=== PATIENT | male | born 1960 | race Caucasian/White ===

== ENCOUNTER 2020-11-08 14:02 | Inpatient (IN) | payer MEDICARE, OTHER ==
[2020-11-08] MEDS ORDERED: IPRATROPIUM-ALBUTEROL 3 ML NEB INHALATION STA (14:11)
[2020-11-08] MEDS ORDERED: methylPREDNISolone SOD SUCCI 125 MG/2 ML VIAL IV STA (14:11)
--- NOTE | 2020-11-08 14:11 | ED ---
General Adult HPI <Flo Brown - Last Filed: 11/08/20 14:06> - General Source: patient, RN notes reviewed, old records reviewed <Derek Andersen - Last Filed: 11/08/20 20:12> - General Stated complaint: SOB Time Seen by Provider: 11/08/20 14:05 - History of Present Illness Initial comments: Patient seen for advanced triage purpose to help expedite care: 59-year-old fred hernandez presents to the emergency room for a chief complaint of shortness of breath. Patient has had shortness of breath since he woke up this morning. Patient does have a history of COPD. he has been coughing a little bit more than normal. Patient also complaining of chest pain. Patient has no other complaints at this time including abdominal pain, nausea or vomiting, headache, or visual changes. (Flo Brown) This is a 59-year-old male with past medical history significant for COPD per patient states last night he felt fine he woke up this morning and he was having hard time breathing. Patient states he took a couple of puffs of his inhaler did not help at all. Patient states he also has some significant chest tightness. Patient denies any new cough or fever. Patient denies any loss of taste or smell. Patient denies any diarrhea. Patient states the shortness of breath is very severe for him. Patient denies any abdominal pain. Patient denies any nausea vomiting diarrhea. Patient denies any lightheadedness or dizziness. (Derek Andersen) - Related Data Home Medications Medication Instructions Recorded Confirmed Aspirin EC [Ecotrin Low Dose] 81 mg PO Q48H 11/08/20 11/08/20 Ergocalciferol (Vitamin D2) 1,250 mcg PO MO 11/08/20 11/08/20 [Drisdol (50,000 Iu)] Multivitamins, Thera [Multivitamin 1 tab PO DAILY 11/08/20 11/08/20 (formulary)] Allergies Allergy/AdvReac Type Severity Reaction Status Date / Time No Known Allergies Allergy Verified 11/08/20 16:00 Review of Systems ROS Other: All systems not noted in ROS Statement are negative. <Flo Brown - Last Filed: 11/08/20 14:06> ROS Other: All systems not noted in ROS Statement are negative. <Derek Andersen - Last Filed: 11/08/20 20:12> ROS Statement: Those systems with pertinent positive or pertinent negative responses have been documented in the HPI. Past Medical History Past Medical History: No Reported History History of Any Multi-Drug Resistant Organisms: None Reported Past Surgical History: No Surgical Hx Reported Past Psychological History: No Psychological Hx Reported Past Alcohol Use History: None Reported Past Drug Use History: None Reported <Flo Brown - Last Filed: 11/08/20 14:06> General Exam General appearance: alert Head exam: Present: atraumatic Eye exam: Present: normal appearance, PERRL, EOMI. Absent: scleral icterus ENT exam: Present: normal exam Neck exam: Present: normal inspection Respiratory exam: Present: decreased breath sounds, other (tachypnea) Cardiovascular Exam: Present: regular rate, normal rhythm, normal heart sounds. Absent: clicks GI/Abdominal exam: Present: soft, normal bowel sounds. Absent: distended, tenderness, guarding, rebound, rigid <Flo Brown - Last Filed: 11/08/20 14:06> <Derek Andersen - Last Filed: 11/08/20 20:12> - General Exam Comments Initial Comments: GENERAL: Patient is well-developed and well-nourished. Patient is nontoxic and well- hydrated and is in moderate distress. ENT: Neck is soft and supple. No significant lymphadenopathy is noted. Oropharynx is clear. Moist mucous membranes. Neck has full range of motion without eliciting any pain. EYES: The sclera were anicteric and conjunctiva were pink and moist. Extraocular movements were intact and pupils were equal round and reactive to light. Eyelids were unremarkable. PULMONARY: Very diminished breath sounds throughout. CARDIOVASCULAR: Patient is a regular rate and rhythm at about 105 beats a minute ABDOMEN: Soft and nontender with normal bowel sounds. SKIN: Skin is clear with no lesions or rashes and otherwise unremarkable. NEUROLOGIC: Patient is alert and oriented x3. Cranial nerves II through XII are grossly intact. Motor and sensory are also intact. Normal speech, volume and content. Symmetrical smile. MUSCULOSKELETAL: Normal extremities with adequate strength and full range of motion. LYMPHATICS: No significant lymphadenopathy is noted PSYCHIATRIC: Normal psychiatric evaluation. (Derek Andersen) Course Vital Signs 11/08/20 11/08/20 11/08/20 14:04 15:10 15:12 Temperature 97.5 F L Pulse Rate 108 H 116 H Respiratory 24 24 22 Rate Blood Pressure 161/88 O2 Sat by Pulse 92 L 95 Oximetry 11/08/20 11/08/20 11/08/20 15:24 16:00 17:00 Temperature Pulse Rate 124 H 124 H 112 H Respiratory 22 22 22 Rate Blood Pressure 113/80 O2 Sat by Pulse 100 100 Oximetry 11/08/20 11/08/20 11/08/20 17:39 17:43 17:44 Temperature Pulse Rate 110 H 110 H 105 H Respiratory 18 16 16 Rate Blood Pressure 124/63 121/73 117/67 O2 Sat by Pulse 100 100 100 Oximetry 11/08/20 11/08/20 11/08/20 17:48 18:00 18:15 Temperature Pulse Rate 100 97 97 Respiratory 16 16 16 Rate Blood Pressure 122/67 122/67 122/67 O2 Sat by Pulse 100 100 100 Oximetry Procedures - Chest Tube Insertion Consent Obtained: verbal consent Side of Procedure: left Indication: Pneumothorax Placed on monitor/pulse oximetry: Yes Site Prep: Chloroprep Local Anesthesia: Lidocaine 1% Amount (mLs): 5 Insertion Site: Other (Mid clavicular second intercostal space) Tube Size (Tristanian): Other (I used a Thoravent) Returns: Air Sutured in Place: No Attached to Suction: Yes Repeat X-ray Results: Other (Slight increased inflation of the lung) Patient Tolerated Procedure: well (Slightly increased inflation) Complications: Pain - Procedural Sedation Procedural Sedation Start Time: 17:48 Procedural Sedation Stop Time: 18:05 Mallampati Airway Score: 1 Preparation: cardiac exercise specialist applied, pulse oximeter, supplemental O2 applied Ketamine: IV Ketamine Dose: 60 Complications: none Patient Tolerated Procedure: well <Derek Andersen - Last Filed: 11/08/20 20:12> Medical Decision Making - Lab Data Result diagrams: 11/08/20 15:02 11/08/20 15:02 <Derek Andersen - Last Filed: 11/08/20 20:12> - Medical Decision Making EKG shows sinus tachycardia with occasional PAC at 104 bpm FL interval is 134 74 QT interval 308 QTC is 45. Patient's EKG shows no ST segment elevation or depression. No prior chest x-ray showed pneumothorax. I placed a Throvent in and the Throvent appeared to turn 90 but the red diaphragm was deflecting with his breathing so it appeared to be functioning. I did Up to continuous suction repeated x-ray today shows slight improvement. I spoke with Dr. Vazquez as as at this point in time and indicated that the patient was satting 100% on 3 L and heart rate was 93 and he did not want me at this time to try to replace it. He wanted cardiothoracic sap integration architect and I will be placed the patient ICU. I will back in the room later and the patient was satting 100% again on 3 L and his heart rate was in the 90s. I spoke with Dr. Orta he agreed to admit the patient admitted the patient wrote admitting orders. (Derek Andersen) - Lab Data Lab Results 11/08/20 11/08/20 11/08/20 Range/Units 15:02 15:02 15:02 WBC 10.9 H (3.8-10.6) k/uL RBC 5.31 (4.30-5.90) m/uL Hgb 15.8 (13.0-17.5) gm/dL Hct 47.7 (39.0-53.0) % MCV 89.9 (80.0-100.0) fL MCH 29.7 (25.0-35.0) pg MCHC 33.0 (31.0-37.0) g/dL RDW 13.7 (11.5-15.5) % Plt Count 407 (150-450) k/uL MPV 8.3 Neutrophils % 81 % Lymphocytes % 12 % Monocytes % 3 % Eosinophils % 1 % Basophils % 1 % Neutrophils # 8.9 H (1.3-7.7) k/uL Lymphocytes # 1.3 (1.0-4.8) k/uL Monocytes # 0.4 (0-1.0) k/uL Eosinophils # 0.1 (0-0.7) k/uL Basophils # 0.1 (0-0.2) k/uL PT 10.8 (9.0-12.0) sec INR 1.0 (<1.2) APTT 23.4 (22.0-30.0) sec D-Dimer (<0.60) mg/L FEU Sample Site ABG pH (7.35-7.45) ABG pCO2 (35-45) mmHg ABG pO2 (83-108) mmHg ABG HCO3 (21-25) mmol/L ABG Total CO2 (19-24) mmol/L ABG O2 Saturation (94-97) % ABG Base Excess mmol/L Desean Test FiO2 % Sodium 137 (137-145) mmol/L Potassium 4.6 (3.5-5.1) mmol/L Chloride 98 (98-107) mmol/L Carbon Dioxide 29 (22-30) mmol/L Anion Gap 10 mmol/L BUN 11 (9-20) mg/dL Creatinine 0.58 L (0.66-1.25) mg/dL Est GFR (CKD-EPI)AfAm >90 (>60 ml/min/1.73 sqM) Est GFR (CKD-EPI)NonAf >90 (>60 ml/min/1.73 sqM) Glucose 123 H (74-99) mg/dL Lactic Ac Sepsis Rflx Plasma Lactic Acid Mustapha (0.7-2.0) mmol/L Calcium 9.6 (8.4-10.2) mg/dL Magnesium 2.0 (1.6-2.3) mg/dL Total Bilirubin 0.4 (0.2-1.3) mg/dL AST 23 (17-59) U/L ALT 13 (4-49) U/L Alkaline Phosphatase 83 (38-126) U/L Troponin I (0.000-0.034) ng/mL Total Protein 7.8 (6.3-8.2) g/dL Albumin 4.8 (3.5-5.0) g/dL 11/08/20 11/08/20 11/08/20 Range/Units 15:02 15:02 15:02 WBC (3.8-10.6) k/uL RBC (4.30-5.90) m/uL Hgb (13.0-17.5) gm/dL Hct (39.0-53.0) % MCV (80.0-100.0) fL MCH (25.0-35.0) pg MCHC (31.0-37.0) g/dL RDW (11.5-15.5) % Plt Count (150-450) k/uL MPV Neutrophils % % Lymphocytes % % Monocytes % % Eosinophils % % Basophils % % Neutrophils # (1.3-7.7) k/uL Lymphocytes # (1.0-4.8) k/uL Monocytes # (0-1.0) k/uL Eosinophils # (0-0.7) k/uL Basophils # (0-0.2) k/uL PT (9.0-12.0) sec INR (<1.2) APTT (22.0-30.0) sec D-Dimer <0.17 (<0.60) mg/L FEU Sample Site ABG pH (7.35-7.45) ABG pCO2 (35-45) mmHg ABG pO2 (83-108) mmHg ABG HCO3 (21-25) mmol/L ABG Total CO2 (19-24) mmol/L ABG O2 Saturation (94-97) % ABG Base Excess mmol/L Desean Test FiO2 % Sodium (137-145) mmol/L Potassium (3.5-5.1) mmol/L Chloride (98-107) mmol/L Carbon Dioxide (22-30) mmol/L Anion Gap mmol/L BUN (9-20) mg/dL Creatinine (0.66-1.25) mg/dL Est GFR (CKD-EPI)AfAm (>60 ml/min/1.73 sqM) Est GFR (CKD-EPI)NonAf (>60 ml/min/1.73 sqM) Glucose (74-99) mg/dL Lactic Ac Sepsis Rflx Plasma Lactic Acid Mustapha 4.8 H* (0.7-2.0) mmol/L Calcium (8.4-10.2) mg/dL Magnesium (1.6-2.3) mg/dL Total Bilirubin (0.2-1.3) mg/dL AST (17-59) U/L ALT (4-49) U/L Alkaline Phosphatase (38-126) U/L Troponin I <0.012 (0.000-0.034) ng/mL Total Protein (6.3-8.2) g/dL Albumin (3.5-5.0) g/dL 11/08/20 11/08/20 Range/Units 16:09 16:26 WBC (3.8-10.6) k/uL RBC (4.30-5.90) m/uL Hgb (13.0-17.5) gm/dL Hct (39.0-53.0) % MCV (80.0-100.0) fL MCH (25.0-35.0) pg MCHC (31.0-37.0) g/dL RDW (11.5-15.5) % Plt Count (150-450) k/uL MPV Neutrophils % % Lymphocytes % % Monocytes % % Eosinophils % % Basophils % % Neutrophils # (1.3-7.7) k/uL Lymphocytes # (1.0-4.8) k/uL Monocytes # (0-1.0) k/uL Eosinophils # (0-0.7) k/uL Basophils # (0-0.2) k/uL PT (9.0-12.0) sec INR (<1.2) APTT (22.0-30.0) sec D-Dimer (<0.60) mg/L FEU Sample Site r rad ABG pH 7.23 L (7.35-7.45) ABG pCO2 66 H (35-45) mmHg ABG pO2 >400 H (83-108) mmHg ABG HCO3 27 H (21-25) mmol/L ABG Total CO2 29 H (19-24) mmol/L ABG O2 Saturation 100.0 H (94-97) % ABG Base Excess -0.2 mmol/L Desean Test Yes FiO2 100 % Sodium (137-145) mmol/L Potassium (3.5-5.1) mmol/L Chloride (98-107) mmol/L Carbon Dioxide (22-30) mmol/L Anion Gap mmol/L BUN (9-20) mg/dL Creatinine (0.66-1.25) mg/dL Est GFR (CKD-EPI)AfAm (>60 ml/min/1.73 sqM) Est GFR (CKD-EPI)NonAf (>60 ml/min/1.73 sqM) Glucose (74-99) mg/dL Lactic Ac Sepsis Rflx Y Plasma Lactic Acid Mustapha (0.7-2.0) mmol/L Calcium (8.4-10.2) mg/dL Magnesium (1.6-2.3) mg/dL Total Bilirubin (0.2-1.3) mg/dL AST (17-59) U/L ALT (4-49) U/L Alkaline Phosphatase (38-126) U/L Troponin I (0.000-0.034) ng/mL Total Protein (6.3-8.2) g/dL Albumin (3.5-5.0) g/dL Critical Care Time Critical Care Time: Yes Total Critical Care Time: 35 <Derek Andesren - Last Filed: 11/08/20 20:12> Disposition <Flo Brown - Last Filed: 11/08/20 14:06> Time of Disposition: 20:02 <Derek Andersen - Last Filed: 11/08/20 20:12> Clinical Impression: Pneumothorax, COPD exacerbation Disposition: ADMITTED IP TO THIS HOSP Referrals: Lissy Shelby MD [Primary Care Provider] - 1-2 days
[2020-11-08] MEDS ORDERED: SODIUM CHLORIDE 0.9% 500 ML 500 ML IV STA (14:40)
[2020-11-08] MEDS ORDERED: TERBUTALINE 1 MG/ML VIAL SQ STA (14:40)
[2020-11-08] MEDS ORDERED: ALBUTEROL NEBULIZED 2.5 MG/3 ML INHALATION STA (14:40)
[2020-11-08] MEDS ORDERED: IPRATROPIUM 0.5 MG/2.5 ML NEBU INHALATION STA (14:40)
[2020-11-08 15:07] LABS: Basophils # (A) 0.1 k/uL (0-0.2); Basophils % (A) 1 %; Eosinophils # (A) 0.1 k/uL (0-0.7); Eosinophils % (A) 1 %; HCT 47.7 % (39.0-53.0); HGB 15.8 gm/dL (13.0-17.5); Lymphocytes # (A) 1.3 k/uL (1.0-4.8); Lymphocytes % (A) 12 %; MCH 29.7 pg (25.0-35.0); MCV 89.9 fL (80.0-100.0); Mean Platelet Volume 8.3; Monocytes # (A) 0.4 k/uL (0-1.0); Monocytes % (A) 3 %; Neutrophils # (A) 8.9 k/uL (1.3-7.7); Neutrophils % (A) 81 %; Platelet Count 407 k/uL (150-450); RBC 5.31 m/uL (4.30-5.90); RDW 13.7 % (11.5-15.5); WBC 10.9 k/uL (3.8-10.6)
[2020-11-08 15:19] LABS: ALT 13 U/L (4-49); AST 23 U/L (17-59); African American GFR (CKD) >90 (>60 ml/min/1.73 sqM); Albumin 4.8 g/dL (3.5-5.0); Alkaline Phosphatase 83 U/L (38-126); Anion Gap 10 mmol/L; Blood Urea Nitrogen 11 mg/dL (9-20); Calcium 9.6 mg/dL (8.4-10.2); Carbon Dioxide 29 mmol/L (22-30); Chloride 98 mmol/L (98-107); Glucose 123 mg/dL (74-99); Non-African American GFR(CKD) >90 (>60 ml/min/1.73 sqM); Potassium 4.6 mmol/L (3.5-5.1); Sodium 137 mmol/L (137-145); Total Bilirubin 0.4 mg/dL (0.2-1.3); Total Protein 7.8 g/dL (6.3-8.2)
[2020-11-08 15:21] LABS: Partial Thromboplastin Time 23.4 sec (22.0-30.0); Prothrombin Time 10.8 sec (9.0-12.0)
[2020-11-08] MEDS ORDERED: LORazepam 2 MG/ML INJ IV STA (15:32)
--- NOTE | 2020-11-08 15:59 | XR ---
EXAMINATION TYPE: XR chest 1V portable DATE OF EXAM: 11/08/2020 COMPARISON: NONE HISTORY: Shortness of breath TECHNIQUE: Single frontal view of the chest is obtained. FINDINGS: Hyperinflation. There is a lucency along the left hemidiaphragm. Subsegmental changes righ t upper lobe. Prominence the pulmonary arteries. There is findings compatible with a left-sided pneum othorax. No significant deviation noted. Case called to the emergency room physician. Appears to be a pleural reflection fold from the sidewall. Estimated at 25% pneumothorax. IMPRESSION: 1. COPD with left-sided approximately 25% pneumothorax. Lucency seen near the left hemidiaphragm like ly related to the pneumothorax rather than intraperitoneal abdominal free air but should be correlate d clinically and if necessary with CT scan. 2. Subsegmental right upper lobe scar favored over infiltrate.
[2020-11-08 16:30] LABS: ABG Base Excess -0.2 mmol/L; ABG HCO3 27 mmol/L (21-25); ABG PCO2 66 mmHg (35-45); ABG PH 7.23 (7.35-7.45); ABG PO2 >400 mmHg (83-108); ABG TCO2 29 mmol/L (19-24); Allen Test Performed? Yes
[2020-11-08] MEDS ORDERED: LIDOCAINE 1% INJ 10MG/ML (20 ML MDV) SQ ONE (17:01)
[2020-11-08] MEDS ORDERED: KETAMINE 10 MG/ML 20 ML VIAL IV ONE (17:01)
[2020-11-08] MEDS ORDERED: KETOROLAC 15 MG/ML 1 ML VIAL IVP STA (18:16)
--- NOTE | 2020-11-08 18:41 | XR ---
EXAMINATION TYPE: XR chest 2V DATE OF EXAM: 11/08/2020 COMPARISON: Earlier same day HISTORY: Follow-up shortness of breath. TECHNIQUE: Frontal and lateral views of the chest are obtained. FINDINGS: There is persistent moderate left pneumothorax. There is interval placement of left upper chest tube. There is background of COPD. There is mild bibasilar opacity. No pleural effusion seen. The cardiac silhouette size is within normal limits. The osseous structures are intact. IMPRESSION: Persistent moderate left pneumothorax status post left chest tube. Chest tube tip locati on is difficult to ascertain on radiograph.
--- NOTE | 2020-11-08 19:29 | XR ---
EXAMINATION TYPE: XR chest 1V portable DATE OF EXAM: 11/08/2020 COMPARISON: Same day. HISTORY: Follow-up shortness of breath and left pneumothorax. TECHNIQUE: Single frontal view of the chest is obtained. FINDINGS: The left upper chest tube remains in place. There is persistent moderate left pneumothorax , slightly decreased compared to prior study. There is also improved bibasilar opacities without sign ificant residual. The cardiac silhouette size is within normal limits. The osseous structures are u nchanged. IMPRESSION: Persistent moderate left pneumothorax, slightly decreased compared to the prior study.
[2020-11-08] MEDS ORDERED: NALOXONE 0.4 MG/ML 1 ML VIAL IV PRN (20:03)
[2020-11-08] MEDS ORDERED: IPRATROPIUM-ALBUTEROL 3 ML NEB INHALATION PRN (20:03)
[2020-11-08 22:35] LABS: Glucose,Whole Blood 169 mg/dL (75-99)
[2020-11-08] MEDS: KETOROLAC 15 MG/ML 1 ML VIAL IVP SCH (23:47)
[2020-11-08] MEDS: methylPREDNISolone SOD SUCCI 125 MG/2 ML VIAL IV SCH (23:48)
[2020-11-09] MEDS: SODIUM CHLORIDE 0.9% 1,000 ML IV SCH ×2 (00:05→19:05)
[2020-11-09 03:17] LABS: African American GFR (CKD) >90 (>60 ml/min/1.73 sqM); Anion Gap 11 mmol/L; Blood Urea Nitrogen 13 mg/dL (9-20); Calcium 9.3 mg/dL (8.4-10.2); Carbon Dioxide 28 mmol/L (22-30); Chloride 98 mmol/L (98-107); Glucose 169 mg/dL (74-99); Non-African American GFR(CKD) >90 (>60 ml/min/1.73 sqM); Potassium 4.5 mmol/L (3.5-5.1); Sodium 137 mmol/L (137-145)
[2020-11-09 03:22] LABS: Basophils % (A) 0 %; Eosinophils % (A) 0 %; HCT 43.2 % (39.0-53.0); HGB 14.3 gm/dL (13.0-17.5); Lymphocytes # (A) 0.7 k/uL (1.0-4.8); Lymphocytes % (A) 8 %; MCH 29.9 pg (25.0-35.0); MCV 90.5 fL (80.0-100.0); Mean Platelet Volume 8.3; Monocytes # (A) 0.1 k/uL (0-1.0); Monocytes % (A) 1 %; Neutrophils # (A) 8.4 k/uL (1.3-7.7); Neutrophils % (A) 91 %; Platelet Count 375 k/uL (150-450); RBC 4.77 m/uL (4.30-5.90); RDW 13.7 % (11.5-15.5); WBC 9.3 k/uL (3.8-10.6)
[2020-11-09] MEDS: KETOROLAC 15 MG/ML 1 ML VIAL IVP SCH ×3 (06:21→18:16)
[2020-11-09] MEDS: methylPREDNISolone SOD SUCCI 125 MG/2 ML VIAL IV SCH ×3 (06:22→18:17)
[2020-11-09] MEDS ORDERED: IPRATROPIUM-ALBUTEROL 3 ML NEB INHALATION PRN (07:49)
[2020-11-09] MEDS: PANTOPRAZOLE 40 MG TABLET PO SCH (08:23)
[2020-11-09] MEDS: HEPARIN SODIUM,PORCINE/PF 5,000 UNIT/0.5 ML SYRINGE SQ SCH ×3 (08:23→16:12)
[2020-11-09] MEDS: BUDESONIDE 1 MG/2 ML NEBU INHALATION SCH ×2 (08:50→20:09)
[2020-11-09] MEDS: IPRATROPIUM-ALBUTEROL 3 ML NEB INHALATION SCH ×4 (08:50→20:09)
[2020-11-09] MEDS: FORMOTEROL FUMARATE 20 MCG/2 ML NEBU INHALATION SCH ×2 (08:50→20:09)
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
[2020-11-09] MEDS ORDERED: PANTOPRAZOLE 40 MG/10 ML VIAL IV SCH (09:00)
--- NOTE | 2020-11-09 09:46 | XR ---
EXAMINATION TYPE: XR chest 1V DATE OF EXAM: 11/09/2020 COMPARISON: 11/08/2020 INDICATION: Pneumothorax TECHNIQUE: Single frontal view of the chest is obtained. FINDINGS: The heart size is normal. The pulmonary vasculature is normal. There is hyperinflation. Scarring right apex. There is a left pneumothorax. The apical portion appears stable. However, there is interval developme nt of lateral and left basilar pneumothorax. Small amount of subcutaneous emphysema is present. IMPRESSION: 1. Small but enlarging pneumothorax. This has increased at the left lung base. 2. COPD. 3. Suspected scarring right apex. Continued follow-up is recommended.
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
--- NOTE | 2020-11-09 10:12 | P.HPIM ---
History of Present Illness H&P Date: 11/08/20 Chief Complaint: shortness of breath This is a 59-year-old male patient of Dr. Shelby who presented to the ER with complaints of shortness of breath. Patient reports that he woke up in the morning which chest pain and shortness of breath. Patient does have a significant past medical history of COPD and previous nicotine dependence. Patient reports that he took a couple puffs inhaler without relief. Upon arrival to emergency room chest x-ray was completed showing COPD with left-sided proximal 25% pneumothorax. Thoravent was placed in emergency room. Patient was started on IV steroids. Patient was admitted to the intensive care unit. Pulmonary and cardiothoracic surgery consulted. At this time patient is still complaining of some shortness of breath. Patient denies chest pain. Patient denies nausea vomiting or diarrhea. Patient denies any urinary burning or frequency Review of Systems Please refer to HPI otherwise unremarkable Past Medical History Past Medical History: No Reported History History of Any Multi-Drug Resistant Organisms: None Reported Past Surgical History: No Surgical Hx Reported Past Psychological History: No Psychological Hx Reported Past Alcohol Use History: None Reported Past Drug Use History: None Reported Medications and Allergies Home Medications Medication Instructions Recorded Confirmed Type Aspirin EC [Ecotrin Low Dose] 81 mg PO Q48H 11/08/20 11/08/20 History Ergocalciferol (Vitamin D2) 1,250 mcg PO MO 11/08/20 11/08/20 History [Drisdol (50,000 Iu)] Multivitamins, Thera [Multivitamin 1 tab PO DAILY 11/08/20 11/08/20 History (formulary)] Allergies Allergy/AdvReac Type Severity Reaction Status Date / Time No Known Allergies Allergy Verified 11/08/20 16:00 Physical Exam Vitals: Vital Signs Temp Pulse Resp BP Pulse Ox 11/08/20 21:56 22 11/08/20 21:43 105 H 22 136/55 95 11/08/20 18:15 97 16 122/67 100 11/08/20 18:00 97 16 122/67 100 11/08/20 17:48 100 16 122/67 100 11/08/20 17:44 105 H 16 117/67 100 11/08/20 17:43 110 H 16 121/73 100 11/08/20 17:39 110 H 18 124/63 100 11/08/20 17:00 112 H 22 100 11/08/20 16:00 124 H 22 113/80 100 11/08/20 15:24 124 H 22 11/08/20 15:12 116 H 22 11/08/20 15:10 24 95 11/08/20 14:04 97.5 F L 108 H 24 161/88 92 L Intake and Output 11/08/20 11/08/20 11/08/20 06:59 14:59 22:59 Other: Weight 54.431 kg Head normocephalic Neck supple Lungs clear to auscultation bilaterally no wheezing or crackles. Diminished Heart regular rate and rhythm S1-S2, no rub or gallop Abdomen is soft nontender nondistended positive bowel sounds no hepatosplenomegaly Extremities no edema Neuro alert and orientated to 3 Results CBC & Chem 7: 11/09/20 02:19 11/09/20 02:19 Labs: Abnormal Lab Results - Last 24 Hours (Table) 11/08/20 11/08/20 11/08/20 Range/Units 15:02 15:02 15:02 WBC 10.9 H (3.8-10.6) k/uL Neutrophils # 8.9 H (1.3-7.7) k/uL ABG pH (7.35-7.45) ABG pCO2 (35-45) mmHg ABG pO2 (83-108) mmHg ABG HCO3 (21-25) mmol/L ABG Total CO2 (19-24) mmol/L ABG O2 Saturation (94-97) % Creatinine 0.58 L (0.66-1.25) mg/dL Glucose 123 H (74-99) mg/dL Plasma Lactic Acid Mustapha 4.8 H* (0.7-2.0) mmol/L 11/08/20 11/08/20 Range/Units 16:26 20:27 WBC (3.8-10.6) k/uL Neutrophils # (1.3-7.7) k/uL ABG pH 7.23 L (7.35-7.45) ABG pCO2 66 H (35-45) mmHg ABG pO2 >400 H (83-108) mmHg ABG HCO3 27 H (21-25) mmol/L ABG Total CO2 29 H (19-24) mmol/L ABG O2 Saturation 100.0 H (94-97) % Creatinine (0.66-1.25) mg/dL Glucose (74-99) mg/dL Plasma Lactic Acid Mustapha 6.0 H* (0.7-2.0) mmol/L Assessment and Plan Assessment: 1. Acute spontaneous left-sided pneumothorax. Status post Thoravent placement on 11/08/2020. 2. COPD exacerbation. Patient started on Solu-Medrol 3. History of nicotine dependence. Patient reports he quit 2 years ago Patient currently in the intensive care unit Thoravent in place Patient maintained on IV steroids and DuoNeb breathing treatments Pulmonary and cardiothoracic team consulted repeat chest xray ordered Time with Patient: Greater than 30 (Greater than 60% of the total time spent in counseling and coordination of care)
--- NOTE | 2020-11-09 10:14 | P.PN ---
Subjective Progress Note Date: 11/09/20 This is a 59-year-old male patient of Dr. Shelby who presented to the ER with complaints of shortness of breath. Patient reports that he woke up in the morning which chest pain and shortness of breath. Patient does have a significant past medical history of COPD and previous nicotine dependence. Patient reports that he took a couple puffs inhaler without relief. Upon arrival to emergency room chest x-ray was completed showing COPD with left-sided proximal 25% pneumothorax. Thoravent was placed in emergency room. Patient was started on IV steroids. Patient was admitted to the intensive care unit. Pulmonary and cardiothoracic surgery consulted. At this time patient is still complaining of some shortness of breath. Patient denies chest pain. Patient denies nausea vomiting or diarrhea. Patient denies any urinary burning or frequency On 11/09/2020 patient's alert and oriented 3. Thoravent has been capped per cardiothoracic team. Repeat chest x-ray has been ordered patient is still having some shortness of breath. Patient remains on IV steroids. Patient denies chest pain. Patient denies nausea vomiting or diarrhea. Patient denies any urinary burning or frequency. Per nursing staff patient has been ordered out of intensive care unit to [facility] floor. Repeat labs in a.m. Objective - Vital Signs Vital signs: Vital Signs Temp 96.7 F L 11/09/20 08:00 Pulse 105 H 11/09/20 09:10 Resp 19 11/09/20 08:00 BP 127/75 11/09/20 08:00 Pulse Ox 96 11/09/20 08:00 Intake & Output 11/08/20 11/09/20 11/09/20 18:59 06:59 18:59 Intake Total 350 Output Total 375 Balance -25 Weight 54.431 kg 55.5 kg Intake: IV 350 Sodium Chloride 0.9% 1, 350 000 ml @ 50 mls/hr IV . Q20H [facility] Rx#:[id number] Output: Urine 375 Other: Voiding Method Urinal - Exam Head normocephalic Neck supple Lungs clear to auscultation bilaterally no wheezing or crackles. Diminished Heart regular rate and rhythm S1-S2, no rub or gallop Abdomen is soft nontender nondistended positive bowel sounds no hepatosplenomega ly Extremities no edema Neuro alert and orientated to 3 - Labs CBC & Chem 7: 08/11/21 02:19 11/09/20 02:19 Labs: Abnormal Lab Results - Last 24 Hours (Table) 11/08/20 11/08/20 11/08/20 Range/Units 15:02 15:02 15:02 WBC 10.9 H (3.8-10.6) k/uL Neutrophils # 8.9 H (1.3-7.7) k/uL Lymphocytes # (1.0-4.8) k/uL ABG pH (7.35-7.45) ABG pCO2 (35-45) mmHg ABG pO2 (83-108) mmHg ABG HCO3 (21-25) mmol/L ABG Total CO2 (19-24) mmol/L ABG O2 Saturation (94-97) % Creatinine 0.58 L (0.66-1.25) mg/dL Glucose 123 H (74-99) mg/dL POC Glucose (mg/dL) (75-99) mg/dL Plasma Lactic Acid Mustapha 4.8 H* (0.7-2.0) mmol/L 11/08/20 11/08/20 11/08/20 Range/Units 16:26 20:27 22:32 WBC (3.8-10.6) k/uL Neutrophils # (1.3-7.7) k/uL Lymphocytes # (1.0-4.8) k/uL ABG pH 7.23 L (7.35-7.45) ABG pCO2 66 H (35-45) mmHg ABG pO2 >400 H (83-108) mmHg ABG HCO3 27 H (21-25) mmol/L ABG Total CO2 29 H (19-24) mmol/L ABG O2 Saturation 100.0 H (94-97) % Creatinine (0.66-1.25) mg/dL Glucose (74-99) mg/dL POC Glucose (mg/dL) 169 H (75-99) mg/dL Plasma Lactic Acid Mustapha 6.0 H* (0.7-2.0) mmol/L 11/08/20 11/09/20 11/09/20 Range/Units 23:27 02:19 02:19 WBC (3.8-10.6) k/uL Neutrophils # 8.4 H (1.3-7.7) k/uL Lymphocytes # 0.7 L (1.0-4.8) k/uL ABG pH (7.35-7.45) ABG pCO2 (35-45) mmHg ABG pO2 (83-108) mmHg ABG HCO3 (21-25) mmol/L ABG Total CO2 (19-24) mmol/L ABG O2 Saturation (94-97) % Creatinine 0.54 L (0.66-1.25) mg/dL Glucose 169 H (74-99) mg/dL POC Glucose (mg/dL) (75-99) mg/dL Plasma Lactic Acid Mustapha 4.8 H* (0.7-2.0) mmol/L 11/09/20 Range/Units 02:19 WBC (3.8-10.6) k/uL Neutrophils # (1.3-7.7) k/uL Lymphocytes # (1.0-4.8) k/uL ABG pH (7.35-7.45) ABG pCO2 (35-45) mmHg ABG pO2 (83-108) mmHg ABG HCO3 (21-25) mmol/L ABG Total CO2 (19-24) mmol/L ABG O2 Saturation (94-97) % Creatinine (0.66-1.25) mg/dL Glucose (74-99) mg/dL POC Glucose (mg/dL) (75-99) mg/dL Plasma Lactic Acid Mustapha 3.6 H* (0.7-2.0) mmol/L Assessment and Plan Assessment: 1. Acute spontaneous left-sided pneumothorax. Status post Thoravent placement on 11/08/2020. Thoravent capped per cardiothoracic team On 11/09/2020 2. COPD exacerbation. Patient started on Solu-Medrol 3. History of nicotine dependence. Patient reports he quit 2 years ago Patient currently in the intensive care unit Thoravent in place Patient maintained on IV steroids and DuoNeb breathing treatments Pulmonary and cardiothoracic team following repeat chest xray ordered
[2020-11-09] MEDS: ACETAMINOPHEN TAB 325 MG TAB PO PRN ×2 (11:33→18:17)
--- NOTE | 2020-11-09 12:21 | XR ---
EXAMINATION TYPE: XR chest 2V DATE OF EXAM: 11/09/2020 COMPARISON: 11/09/2020 earlier exam INDICATION: Pneumothorax TECHNIQUE: Frontal and lateral views of the chest are obtained. FINDINGS: The heart size is normal. The pulmonary vasculature is normal. There is hyperinflation flattening the diaphragms compatible with COPD. Minimal left pleural effusion is not excluded. The scarring in the right apex remains present Chest tube is present on the right. The right apical pneumothorax is again evident. There is right ba silar pneumothorax. Findings appear stable. Subcutaneous emphysema is increasing. IMPRESSION: 1. Loculated right pneumothorax appears stable in size. The cutaneous emphysema is increasing over e interval.
[2020-11-10] MEDS: methylPREDNISolone SOD SUCCI 125 MG/2 ML VIAL IV SCH ×5 (00:35→23:30)
[2020-11-10] MEDS: KETOROLAC 15 MG/ML 1 ML VIAL IVP SCH ×5 (00:35→23:29)
[2020-11-10] MEDS: HEPARIN SODIUM,PORCINE/PF 5,000 UNIT/0.5 ML SYRINGE SQ SCH ×4 (00:36→23:28)
[2020-11-10 04:21] LABS: African American GFR (CKD) >90 (>60 ml/min/1.73 sqM); Anion Gap 5 mmol/L; Blood Urea Nitrogen 19 mg/dL (9-20); Calcium 9.4 mg/dL (8.4-10.2); Carbon Dioxide 32 mmol/L (22-30); Chloride 101 mmol/L (98-107); Glucose 151 mg/dL (74-99); Non-African American GFR(CKD) >90 (>60 ml/min/1.73 sqM); Potassium 4.3 mmol/L (3.5-5.1); Sodium 138 mmol/L (137-145)
[2020-11-10 04:29] LABS: Basophils % (A) 0 %; Eosinophils % (A) 0 %; HCT 41.5 % (39.0-53.0); HGB 13.4 gm/dL (13.0-17.5); Lymphocytes # (A) 0.7 k/uL (1.0-4.8); Lymphocytes % (A) 3 %; MCH 29.7 pg (25.0-35.0); MCHC 32.3 g/dL (31.0-37.0); MCV 91.9 fL (80.0-100.0); Monocytes # (A) 0.6 k/uL (0-1.0); Monocytes % (A) 3 %; Neutrophils # (A) 23.8 k/uL (1.3-7.7); Neutrophils % (A) 94 %; Platelet Count 319 k/uL (150-450); RBC 4.51 m/uL (4.30-5.90); RDW 13.8 % (11.5-15.5); WBC 25.2 k/uL (3.8-10.6)
--- NOTE | 2020-11-10 06:43 | XR ---
EXAMINATION TYPE: XR chest 2V DATE OF EXAM: 11/10/2020 COMPARISON: Chest x-ray one day earlier and older studies HISTORY: Pneumothorax. TECHNIQUE: Frontal and lateral views of the chest are obtained. FINDINGS: Redemonstration of right-sided pneumothorax with apical colon lateral basilar component de spite anterior chest tube. Size is stable or perhaps slightly larger given increased bilateral basila r component. No new mediastinal shift. The cardiac silhouette size is stable and within normal limits . Right upper lung fibrotic changes redemonstrated. The osseous structures remain intact. IMPRESSION: Small left pneumothorax estimated near 10% stable or slightly more prominent with anterio r chest tube redemonstrated.
--- NOTE | 2020-11-10 07:26 | P.PN ---
Subjective Progress Note Date: 11/10/20 Principal diagnosis: Spontaneous left sided pneumothorax, first occurrence, s/p thoravent placement by the emergency room physicians. Previous medical history of COPD, previous to bacco dependence The patient is currently sitting up in bed in the intensive care unit in no acute distress, awaiting a bed on a medical surgical unit. States his only pain is at thoravent site, does continue to complain of shortness of breath but states he does feel better than yesterday. Left-sided thoravent remains present, nonocclusive remains in place, no air leak this morning. Currently on 3 L nasal cannula with oxygen saturation in the mid 90s. Only able to achieve 750 mL on his incentive spirometry. No other new concerns. Objective - Vital Signs Vital signs: Vital Signs Temp 98 F 11/10/20 02:00 Pulse 100 11/10/20 02:00 Resp 22 11/10/20 02:00 BP 100/45 11/10/20 02:00 Pulse Ox 96 11/10/20 02:00 Intake & Output 11/09/20 11/10/20 11/10/20 18:59 06:59 18:59 Intake Total 350 0 Output Total 800 225 Balance -450 -225 Intake: IV 350 0 Sodium Chloride 0.9% 1, 350 0 000 ml @ 50 mls/hr IV . Q20H [facility] Rx#:[id number] Output: Urine 800 225 Other: Voiding Method Toilet # Voids 2 - Exam CONSTITUTIONAL: Appears comfortable, cooperative, no acute distress RESPIRATORY: Lungs sounds very diminished bilaterally, left greater than right. Respirations even, nonlabored. Currently on 3 L nasal cannula with oxygen saturation 96%. Able to achieve 750 mL on incentive spirometry. Strong nonproductive cough. CARDIOVASCULAR: S1, S2 present. Regular rate and rhythm. Palpable peripheral pulses bilaterally. No edema present. No calf pain or tenderness noted. SCDs present. GASTROINTESTINAL: Abdomen soft, nontender, nondistended. Active bowel sounds present 4 quadrants. Tolerating diet. GENITOURINARY: Continues to void INTEGUMENTARY: Skin is warm and dry with evidence of good perfusion. NEUROLOGIC: Cranial nerves II through XII intact MUSKULOSKELETAL: Able to move all extremities, strength equal bilaterally, gait normal PSYCHIATRIC: Alert and oriented to person place and time, appropriate affect, intact judgment and insight INVASIVE LINES AND TUBES: Left-sided thoravent present with non-occlusive cap, no air leak present this morning. T piece inserted with attempted aspiration, still no air leak - Allied health notes Allied health notes reviewed: nursing - Labs CBC & Chem 7: 11/10/20 03:41 11/10/20 03:41 Labs: Abnormal Lab Results - Last 24 Hours (Table) 11/10/20 11/10/20 Range/Units 03:41 03:41 WBC 25.2 H (3.8-10.6) k/uL Neutrophils # 23.8 H (1.3-7.7) k/uL Lymphocytes # 0.7 L (1.0-4.8) k/uL Carbon Dioxide 32 H (22-30) mmol/L Creatinine 0.54 L (0.66-1.25) mg/dL Glucose 151 H (74-99) mg/dL Microbiology - Last 24 Hours (Table) 11/08/20 15:02 Blood Culture - Preliminary Blood No Growth after 24 hours 11/08/20 15:02 Blood Culture - Preliminary Blood No Growth after 24 hours - Imaging and Cardiology Chest x-ray: report reviewed, image reviewed Assessment and Plan Assessment: 1. Spontaneous left sided pneumothorax, first occurrence, s/p thoravent placement by the emergency room physicians 2. COPD 3. Previous tobacco dependence Plan: 1. Will discontinue thoravent as it doesn't appear to be making any difference and there is no air leak present 2. Wean O2 as tolerated. Encourage incentive spirometry use 10 times every hour while awake. Bronchodilators, steroids per pulmonology 3. Increase activity, ambulate as tolerated 4. Pain controlled current medication regimen 5. Encourage continued smoking cessation 6. Will repeat chest x-ray after thoravent removal 7. Medical management of other comorbidities per primary care service 8. More recommendations to follow Time with Patient: Greater than 30
[2020-11-10] MEDS: BUDESONIDE 1 MG/2 ML NEBU INHALATION SCH ×2 (08:16→19:09)
[2020-11-10] MEDS: IPRATROPIUM-ALBUTEROL 3 ML NEB INHALATION SCH ×4 (08:16→19:09)
[2020-11-10] MEDS: FORMOTEROL FUMARATE 20 MCG/2 ML NEBU INHALATION SCH ×2 (08:16→19:09)
[2020-11-10] MEDS: PANTOPRAZOLE 40 MG TABLET PO SCH (08:27)
--- NOTE | 2020-11-10 09:16 | P.PN ---
Subjective Progress Note Date: 11/10/20 Principal diagnosis: Spontaneous left-sided pneumothorax This is a 59-year-old gentleman who has a history of 40 years of chronic tobacco dependence and chronic obstructive pulmonary disease and follows with Dr. Shelby as his primary care provider. He is maintained on Qvar. He presented here to the emergency room yesterday with significant worsening shortness of breath that had been going on throughout most of the morning. He was more short of breath than usual. He was using his rescue inhaler without any improvement. His initial chest x-ray revealed evidence of severe COPD and bullous emphysema. There is also a 25% left-sided pneumothorax. A Thoravent was placed in the emergency room. He was admitted to the intensive care unit. He is seen today in consultation. He is currently sitting up right in bed. Leaning forward. Still with some dyspnea on conversation and minimal exertion. Chest tube is to wall suction. No leak is present. Arterial blood gases on 100% FiO2 had revealed a pO2 greater than 400, pCO2 66, pH 7.23. White count 9.3. Hemoglobin 14.3. Sodium 137. Potassium 4.5. Creatinine 0.54. Initial lactic acid 4.8. He's been initiated on IV Solu-Medrol, albuterol. Received 1 dose of ceftriaxone. The patient is seen today 11/10/2020 in follow-up in the intensive care unit. He is currently resting comfortably in bed. Lung short of breath today compared to yesterday. More comfortable. He is maintaining O2 saturations in the 90s on 3 L/m per nasal cannula. His Thora-Vent remains in place and has been capped. No IV fluids. Chest x-ray is stable similar to yesterday with temperature setting pneumothorax. White count 25.2. Hemoglobin 13.4. Sodium 138. Potassium 4.3. Bicarb 32. Creatinine 0.54. Glucose 151. He remains on bronchodilators, IV Solu-Medrol. Working well with the incentive spirometer. Heparin for DVT prophylaxis. Objective - Vital Signs Vital signs: Vital Signs Temp 98.0 F 11/10/20 08:00 Pulse 100 11/10/20 08:27 Resp 20 11/10/20 08:00 BP 118/75 11/10/20 08:00 Pulse Ox 97 11/10/20 08:00 Intake & Output 11/09/20 11/10/20 11/10/20 18:59 06:59 18:59 Intake Total 350 0 Output Total 800 225 Balance -450 -225 Intake: IV 350 0 Sodium Chloride 0.9% 1, 350 0 000 ml @ 50 mls/hr IV . Q20H [facility] Rx#:[id number] Output: Urine 800 225 Other: Voiding Method Toilet Toilet # Voids 2 - Exam GENERAL EXAM: Alert, pleasant 59-year-old gentleman, appears older than stated age, on 3 L nasal cannula, fairly comfortable in mild respiratory distress. HEAD: Normocephalic. EYES: Normal reaction of pupils, equal size. NOSE: Clear with pink turbinates. THROAT: No erythema or exudates. NECK: No masses, no JVD. CHEST: Left sided Thora-Vent in place, capped. LUNGS: Equal air entry with bilateral end expiratory wheeze, diminished CVS: S1 and S2 normal with no audible murmur, regular rhythm. ABDOMEN: No hepatosplenomegaly, normal bowel sounds, no guarding or rigidity. SPINE: No scoliosis or deformity SKIN: No rashes CENTRAL NERVOUS SYSTEM: No focal deficits, tone is normal in all 4 extremities. EXTREMITIES: There is no peripheral edema. No clubbing, no cyanosis. Peripheral pulses are intact. - Labs CBC & Chem 7: 11/10/20 03:41 11/10/20 03:41 Labs: Abnormal Lab Results - Last 24 Hours (Table) 11/10/20 11/10/20 Range/Units 03:41 03:41 WBC 25.2 H (3.8-10.6) k/uL Neutrophils # 23.8 H (1.3-7.7) k/uL Lymphocytes # 0.7 L (1.0-4.8) k/uL Carbon Dioxide 32 H (22-30) mmol/L Creatinine 0.54 L (0.66-1.25) mg/dL Glucose 151 H (74-99) mg/dL Microbiology - Last 24 Hours (Table) 11/08/20 15:02 Blood Culture - Preliminary Blood No Growth after 24 hours 11/08/20 15:02 Blood Culture - Preliminary Blood No Growth after 24 hours Assessment and Plan Assessment: 1 Acute left-sided spontaneous pneumothorax, status post Thora-Vent placement on 11/08/2020, Done 11/09/2020, removed 11/10/2020 2 Severe bolus emphysema/COPD 3 Chronic and ongoing tobacco dependence of 40 years but quit 2 years ago Plan: The patient was seen and evaluated by Dr. Vazquez Chest x-ray and labs reviewed Continue IV Solu-Medrol, bronchodilators Continue incentive spirometer Titrate down the FiO2 as tolerated Thora-Vent to removed by cardiothoracic bases today Follow-up chest x-ray pending We will continue to follow I, the cosigning physician, performed a history & physical examination of the patient. Lungs sounds with bilateral end expiratory wheeze, diminished. Maintaining good O2 saturations in the 90s on 3 L/m per nasal cannula. I discussed the assessment and plan of care with my nurse practitioner, Vida Villasenor. I attest to the above note as dictated by her.
--- NOTE | 2020-11-10 13:48 | P.PN ---
Subjective Progress Note Date: 11/10/20 This is a 59-year-old male patient of Dr. Shelby who presented to the ER with complaints of shortness of breath. Patient reports that he woke up in the morning which chest pain and shortness of breath. Patient does have a significant past medical history of COPD and previous nicotine dependence. Patient reports that he took a couple puffs inhaler without relief. Upon arrival to emergency room chest x-ray was completed showing COPD with left-sided proximal 25% pneumothorax. Thoravent was placed in emergency room. Patient was started on IV steroids. Patient was admitted to the intensive care unit. Pulmonary and cardiothoracic surgery consulted. At this time patient is still complaining of some shortness of breath. Patient denies chest pain. Patient denies nausea vomiting or diarrhea. Patient denies any urinary burning or frequency On 11/09/2020 patient's alert and oriented 3. Thoravent has been capped per cardiothoracic team. Repeat chest x-ray has been ordered patient is still having some shortness of breath. Patient remains on IV steroids. Patient denies chest pain. Patient denies nausea vomiting or diarrhea. Patient denies any urinary burning or frequency. Per nursing staff patient has been ordered out of intensive care unit to [facility] floor. Repeat labs in a.m. On 11/10/2020 patient was seen and examined in the ICU he reports some improvement in his shortness of breath, otherwise he denies any complaints, there is no fever or chills no headache or dizziness no chest pain no cough no nausea or vomiting no abdominal pain no diarrhea no blood in the stools no burning with urination no frequency or urgency and no hematuria consort numbness in any of the extremities no change in vision or gait or speech. Objective - Vital Signs Vital signs: Vital Signs Temp 98.0 F 11/10/20 08:00 Pulse 100 11/10/20 08:27 Resp 20 11/10/20 08:00 BP 118/75 11/10/20 08:00 Pulse Ox 97 11/10/20 08:00 Intake & Output 11/09/20 11/10/20 11/10/20 18:59 06:59 18:59 Intake Total 350 0 Output Total 800 225 Balance -450 -225 Intake: IV 350 0 Sodium Chloride 0.9% 1, 350 0 000 ml @ 50 mls/hr IV . Q20H [facility] Rx#:[id number] Output: Urine 800 225 Other: Voiding Method Toilet Toilet # Voids 2 - Exam Head normocephalic and atraumatic Neck supple no JVD no goiter Lungs clear to auscultation bilaterally no wheezing or crackles. Diminished Heart regular rate and rhythm S1-S2, no rub or gallop Abdomen is soft nontender nondistended positive bowel sounds no hepatosplenomegaly Extremities no edema no cyanosis or clubbing Neuro alert and orientated to 3 - Labs CBC & Chem 7: 11/10/20 03:41 11/10/20 03:41 Labs: Abnormal Lab Results - Last 24 Hours (Table) 11/10/20 11/10/20 Range/Units 03:41 03:41 WBC 25.2 H (3.8-10.6) k/uL Neutrophils # 23.8 H (1.3-7.7) k/uL Lymphocytes # 0.7 L (1.0-4.8) k/uL Carbon Dioxide 32 H (22-30) mmol/L Creatinine 0.54 L (0.66-1.25) mg/dL Glucose 151 H (74-99) mg/dL Microbiology - Last 24 Hours (Table) 11/08/20 15:02 Blood Culture - Preliminary Blood No Growth after 24 hours 11/08/20 15:02 Blood Culture - Preliminary Blood No Growth after 24 hours Assessment and Plan Assessment: 1. Acute spontaneous left-sided pneumothorax. Status post Thoravent placement on 11/08/2020. Thoravent capped per cardiothoracic team On 11/09/2020 2. COPD exacerbation. Patient maintained on Solu-Medrol, and inhaled bronchodilators 3. History of nicotine dependence. Patient reports he quit 2 years ago Patient currently in the intensive care unit Thoravent in place Patient maintained on IV steroids and DuoNeb breathing treatments Pulmonary and cardiothoracic team following repeat chest xray ordered
[2020-11-10] MEDS: SODIUM CHLORIDE 0.9% 1,000 ML IV SCH (16:09)
[2020-11-11 04:24] LABS: Basophils % (A) 0 %; Eosinophils % (A) 0 %; HCT 40.2 % (39.0-53.0); HGB 13.3 gm/dL (13.0-17.5); Lymphocytes # (A) 0.7 k/uL (1.0-4.8); Lymphocytes % (A) 3 %; MCH 29.6 pg (25.0-35.0); MCHC 33.1 g/dL (31.0-37.0); MCV 89.3 fL (80.0-100.0); Mean Platelet Volume 8.4; Monocytes # (A) 0.7 k/uL (0-1.0); Monocytes % (A) 3 %; Neutrophils # (A) 24.1 k/uL (1.3-7.7); Neutrophils % (A) 94 %; Platelet Count 331 k/uL (150-450); WBC 25.5 k/uL (3.8-10.6)
[2020-11-11 04:37] LABS: ALT 16 U/L (4-49); AST 28 U/L (17-59); African American GFR (CKD) >90 (>60 ml/min/1.73 sqM); Albumin 3.7 g/dL (3.5-5.0); Alkaline Phosphatase 56 U/L (38-126); Anion Gap 6 mmol/L; Blood Urea Nitrogen 19 mg/dL (9-20); Calcium 9.5 mg/dL (8.4-10.2); Carbon Dioxide 33 mmol/L (22-30); Chloride 99 mmol/L (98-107); Glucose 136 mg/dL (74-99); Non-African American GFR(CKD) >90 (>60 ml/min/1.73 sqM); Potassium 4.4 mmol/L (3.5-5.1); Sodium 138 mmol/L (137-145); Total Bilirubin 0.2 mg/dL (0.2-1.3); Total Protein 6.3 g/dL (6.3-8.2)
[2020-11-11] MEDS: KETOROLAC 15 MG/ML 1 ML VIAL IVP SCH (06:09)
[2020-11-11] MEDS: methylPREDNISolone SOD SUCCI 125 MG/2 ML VIAL IV SCH ×3 (06:10→19:03)
--- NOTE | 2020-11-11 07:18 | XR ---
EXAMINATION TYPE: XR chest 1V portable DATE OF EXAM: 11/11/2020 COMPARISON: 11/10/2020 INDICATION: Pneumothorax TECHNIQUE: Single frontal view of the chest is obtained. FINDINGS: The heart size is normal. The pulmonary vasculature is normal. Streak opacity in the right apex has improved. Residual is likely chronic There is a right-sided pneumothorax which appears stable. Chest tube is been removed. Subcutaneous ai r is present. IMPRESSION: 1. Stable appearing right sided pneumothorax includes some loculation at the left base.
[2020-11-11] MEDS: BUDESONIDE 1 MG/2 ML NEBU INHALATION SCH ×2 (07:35→15:35)
[2020-11-11] MEDS: IPRATROPIUM-ALBUTEROL 3 ML NEB INHALATION SCH ×4 (07:35→19:12)
[2020-11-11] MEDS: FORMOTEROL FUMARATE 20 MCG/2 ML NEBU INHALATION SCH ×2 (07:35→15:35)
[2020-11-11] MEDS: HEPARIN SODIUM,PORCINE/PF 5,000 UNIT/0.5 ML SYRINGE SQ SCH ×2 (08:34→17:43)
[2020-11-11] MEDS: PANTOPRAZOLE 40 MG TABLET PO SCH (08:35)
--- NOTE | 2020-11-11 09:25 | P.PN ---
Subjective Progress Note Date: 11/11/20 Principal diagnosis: Spontaneous left sided pneumothorax, first occurrence, s/p thoravent placement by the emergency room physicians. Past medical history significant for COPD, re mote history of tobacco dependence, quit smoking 2 years ago. The patient was seen in follow-up today 11/11/2020 at his bedside in the intensive care unit. Currently he is lying in bed, is awake, alert and oriented 3 and is in no acute distress. He is complaining of some continued episodes of shortness of breath and is complaining of some pain at his old Thoravent insertion site. No redness or swelling is at the site. He is afebrile. Oxygen saturations are 91% on 1 L nasal cannula and he is achieving 1000 mL on his incentive spirometry with encouragement. He is waiting for a bed on the medical surgical unit. Laboratory results this morning show a WBC count 25.5, hemoglobin 13.3, platelets 331, BUN 19 and creatinine 0.57. Chest x-ray report this morning shows a stable appearing right-sided pneumothorax. Left chest Thoravent was removed yesterday without incident. Objective - Vital Signs Vital signs: Vital Signs Temp 97.4 F L 11/11/20 08:00 Pulse 110 H 11/11/20 08:00 Resp 22 11/11/20 08:00 BP 122/74 11/11/20 08:00 Pulse Ox 91 L 11/11/20 08:00 Intake & Output 11/10/20 11/11/20 11/11/20 18:59 06:59 18:59 Intake Total 500 Output Total 900 Balance 500 -900 Intake: Oral 500 Output: Urine 900 Other: Voiding Method Toilet Toilet Toilet # Voids 1 - Exam CONSTITUTIONAL: Currently lying in bed in the intensive care unit. Appears comfortable, cooperative, no acute distress RESPIRATORY: Lungs sounds very diminished bilaterally with some few scattered expiratory wheezes. Respirations are symmetrical and nonlabored. Currently on 1 L nasal cannula with oxygen saturation 91%. Able to achieve 1000 mL on his incentive spirometry. Strong nonproductive cough. CARDIOVASCULAR: S1, S2 present, negative for S3, gallop or murmur. Regular rate and tachycardic rate rhythm. Palpable peripheral pulses bilaterally. No edema present. No calf pain or tenderness noted. SCDs present bilaterally. GASTROINTESTINAL: Abdomen soft, nontender, nondistended. Active bowel sounds present 4 quadrants. Tolerating diet. GENITOURINARY: Continues to void INTEGUMENTARY: Skin is warm and dry with no clubbing or cyanosis. NEUROLOGIC: Cranial nerves II through XII intact. MUSKULOSKELETAL: Able to move all extremities, strength equal bilaterally. PSYCHIATRIC: Alert and oriented to person place and time, appropriate affect, intact judgment and insight - Labs CBC & Chem 7: 11/11/20 03:52 11/11/20 03:52 Labs: Abnormal Lab Results - Last 24 Hours (Table) 11/11/20 11/11/20 Range/Units 03:52 03:52 WBC 25.5 H (3.8-10.6) k/uL Neutrophils # 24.1 H (1.3-7.7) k/uL Lymphocytes # 0.7 L (1.0-4.8) k/uL Carbon Dioxide 33 H (22-30) mmol/L Creatinine 0.57 L (0.66-1.25) mg/dL Glucose 136 H (74-99) mg/dL Microbiology - Last 24 Hours (Table) 11/08/20 15:02 Blood Culture - Preliminary Blood No Growth after 48 hours 11/08/20 15:02 Blood Culture - Preliminary Blood No Growth after 48 hours Assessment and Plan Assessment: 1. Spontaneous left sided pneumothorax, first occurrence, s/p thoravent placement by the emergency room physicians 2. Severe bullous emphysema, COPD 3. Remote history of tobacco dependence, quit 2 years ago Plan: 1. Left chest Thoravent was removed yesterday without incident. 2. Wean O2 as tolerated. Encourage incentive spirometry use 10 times every hour while awake. Bronchodilators, steroids per pulmonology/critical care medicine. 3. Increase activity, ambulate as tolerated. Out of bed for all meals. 4. Pain controlled current medication regimen. 5. Encourage continued smoking cessation. 6. Medical management of other comorbidities per primary care service. 8. We will continue to follow the patient on an as-needed basis. Time with Patient: Less than 30
--- NOTE | 2020-11-11 10:23 | P.PN ---
Subjective Progress Note Date: 11/11/20 This is a 59-year-old male patient of Dr. Shelby who presented to the ER with complaints of shortness of breath. Patient reports that he woke up in the morning which chest pain and shortness of breath. Patient does have a significant past medical history of COPD and previous nicotine dependence. Patient reports that he took a couple puffs inhaler without relief. Upon arrival to emergency room chest x-ray was completed showing COPD with left-sided proximal 25% pneumothorax. Thoravent was placed in emergency room. Patient was started on IV steroids. Patient was admitted to the intensive care unit. Pulmonary and cardiothoracic surgery consulted. At this time patient is still complaining of some shortness of breath. Patient denies chest pain. Patient denies nausea vomiting or diarrhea. Patient denies any urinary burning or frequency On 11/09/2020 patient's alert and oriented 3. Thoravent has been capped per cardiothoracic team. Repeat chest x-ray has been ordered patient is still having some shortness of breath. Patient remains on IV steroids. Patient denies chest pain. Patient denies nausea vomiting or diarrhea. Patient denies any urinary burning or frequency. Per nursing staff patient has been ordered out of intensive care unit to [facility] floor. Repeat labs in a.m. On 11/10/2020 patient was seen and examined in the ICU he reports some improvement in his shortness of breath, otherwise he denies any complaints, there is no fever or chills no headache or dizziness no chest pain no cough no nausea or vomiting no abdominal pain no diarrhea no blood in the stools no burning with urination no frequency or urgency and no hematuria consort numbness in any of the extremities no change in vision or gait or speech. On 11/11/2020 patient's alert and oriented 3. Thoravent was removed yesterday. Chest x-ray today showing stable appearing right-sided pneumothorax includes some loculation at the left base. Patient does report some improvement with shortness of breath. Patient denies chest pain. Patient denies nausea vomiting or diarrhea. Patient denies any urinary burning or frequency Objective - Vital Signs Vital signs: Vital Signs Temp 97.4 F L 11/11/20 08:00 Pulse 110 H 11/11/20 08:00 Resp 22 11/11/20 08:00 BP 122/74 11/11/20 08:00 Pulse Ox 91 L 11/11/20 08:00 Intake & Output 11/10/20 11/11/20 11/11/20 18:59 06:59 18:59 Intake Total 500 Output Total 900 Balance 500 -900 Intake: Oral 500 Output: Urine 900 Other: Voiding Method Toilet Toilet Toilet # Voids 1 - Exam Head normocephalic and atraumatic Neck supple no JVD no goiter Lungs clear to auscultation bilaterally no wheezing or crackles. Diminished Heart regular rate and rhythm S1-S2, no rub or gallop Abdomen is soft nontender nondistended positive bowel sounds no hepatosplenomegaly Extremities no edema no cyanosis or clubbing Neuro alert and orientated to 3 - Labs CBC & Chem 7: 11/11/20 03:52 11/11/20 03:52 Labs: Abnormal Lab Results - Last 24 Hours (Table) 11/11/20 11/11/20 Range/Units 03:52 03:52 WBC 25.5 H (3.8-10.6) k/uL Neutrophils # 24.1 H (1.3-7.7) k/uL Lymphocytes # 0.7 L (1.0-4.8) k/uL Carbon Dioxide 33 H (22-30) mmol/L Creatinine 0.57 L (0.66-1.25) mg/dL Glucose 136 H (74-99) mg/dL Microbiology - Last 24 Hours (Table) 11/08/20 15:02 Blood Culture - Preliminary Blood No Growth after 48 hours 11/08/20 15:02 Blood Culture - Preliminary Blood No Growth after 48 hours Assessment and Plan Assessment: 1. Acute spontaneous left-sided pneumothorax. Status post Thoravent placement on 11/08/2020. Thoravent capped per cardiothoracic team On 11/09/2020. Status post removal on 11/10/2020 2. COPD exacerbation. Patient maintained on Solu-Medrol, and inhaled bronchodilators 3. History of nicotine dependence. Patient reports he quit 2 years ago Patient currently in the intensive care unit Thoravent removed on 11/10/2020 Patient maintained on IV steroids and DuoNeb breathing treatments Pulmonary and cardiothoracic team following repeat chest xray ordered
--- NOTE | 2020-11-11 10:24 | P.PN ---
Subjective Progress Note Date: 11/11/20 Principal diagnosis: Spontaneous left-sided pneumothorax This is a 59-year-old gentleman who has a history of 40 years of chronic tobacco dependence and chronic obstructive pulmonary disease and follows with Dr. Shelby as his primary care provider. He is maintained on Qvar. He presented here to the emergency room yesterday with significant worsening shortness of breath that had been going on throughout most of the morning. He was more short of breath than usual. He was using his rescue inhaler without any improvement. His initial chest x-ray revealed evidence of severe COPD and bullous emphysema. There is also a 25% left-sided pneumothorax. A Thoravent was placed in the emergency room. He was admitted to the intensive care unit. He is seen today in consultation. He is currently sitting up right in bed. Leaning forward. Still with some dyspnea on conversation and minimal exertion. Chest tube is to wall suction. No leak is present. Arterial blood gases on 100% FiO2 had revealed a pO2 greater than 400, pCO2 66, pH 7.23. White count 9.3. Hemoglobin 14.3. Sodium 137. Potassium 4.5. Creatinine 0.54. Initial lactic acid 4.8. He's been initiated on IV Solu-Medrol, albuterol. Received 1 dose of ceftriaxone. The patient is seen today 11/10/2020 in follow-up in the intensive care unit. He is currently resting comfortably in bed. Lung short of breath today compared to yesterday. More comfortable. He is maintaining O2 saturations in the 90s on 3 L/m per nasal cannula. His Thora-Vent remains in place and has been capped. No IV fluids. Chest x-ray is stable similar to yesterday with temperature setting pneumothorax. White count 25.2. Hemoglobin 13.4. Sodium 138. Potassium 4.3. Bicarb 32. Creatinine 0.54. Glucose 151. He remains on bronchodilators, IV Solu-Medrol. Working well with the incentive spirometer. Heparin for DVT prophylaxis. The patient is seen today 11/11/2020 in follow-up in the intensive care unit. He is currently sitting up in bed. Awake and alert in no acute distress. He is down to 1 L of oxygen. No IV fluids. Thora vent was removed yesterday. Today's chest x-ray shows a small left apical pneumothorax. No worsening shortness of breath, cough or congestion. No hemoptysis. Blood cultures reveal no growth. White count 25.5. Hemoglobin 13.3. Sodium 138. Potassium 4.4. Creatinine 0.57. Glucose 136. AST 20. ALT 16. Left chest dressing is dry and intact. Pain is well controlled. He remains on DuoNeb inhalations, Pulmicort and Perforomist inhalations, IV Solu-Medrol. Pulling approximately a 1000 ML's on the incentive spirometer. Objective - Vital Signs Vital signs: Vital Signs Temp 97.4 F L 11/11/20 08:00 Pulse 110 H 11/11/20 08:00 Resp 22 11/11/20 08:00 BP 122/74 11/11/20 08:00 Pulse Ox 91 L 11/11/20 08:00 Intake & Output 11/10/20 11/11/20 11/11/20 18:59 06:59 18:59 Intake Total 500 Output Total 900 Balance 500 -900 Intake: Oral 500 Output: Urine 900 Other: Voiding Method Toilet Toilet Toilet # Voids 1 - Exam GENERAL EXAM: Alert, 59-year-old gentleman, appears older than stated age, on 1 L nasal cannula, comfortable in mild respiratory distress. HEAD: Normocephalic. EYES: Normal reaction of pupils, equal size. NOSE: Clear with pink turbinates. THROAT: No erythema or exudates. NECK: No masses, no JVD. CHEST: Left sided Thora-Vent removed, dressing dry and intact.. LUNGS: Equal air entry with bilateral end expiratory wheeze, diminished CVS: S1 and S2 normal with no audible murmur, regular rhythm. ABDOMEN: No hepatosplenomegaly, normal bowel sounds, no guarding or rigidity. SPINE: No scoliosis or deformity SKIN: No rashes CENTRAL NERVOUS SYSTEM: No focal deficits, tone is normal in all 4 extremities. EXTREMITIES: There is no peripheral edema. No clubbing, no cyanosis. Peripheral pulses are intact. - Labs CBC & Chem 7: 11/11/20 03:52 11/11/20 03:52 Labs: Abnormal Lab Results - Last 24 Hours (Table) 11/11/20 11/11/20 Range/Units 03:52 03:52 WBC 25.5 H (3.8-10.6) k/uL Neutrophils # 24.1 H (1.3-7.7) k/uL Lymphocytes # 0.7 L (1.0-4.8) k/uL Carbon Dioxide 33 H (22-30) mmol/L Creatinine 0.57 L (0.66-1.25) mg/dL Glucose 136 H (74-99) mg/dL Microbiology - Last 24 Hours (Table) 11/08/20 15:02 Blood Culture - Preliminary Blood No Growth after 48 hours 11/08/20 15:02 Blood Culture - Preliminary Blood No Growth after 48 hours Assessment and Plan Assessment: 1 Acute left-sided spontaneous pneumothorax, status post Thora-Vent placement on 11/08/2020, Done 11/09/2020, removed 11/10/2020 2 Severe bolus emphysema/COPD 3 Chronic tobacco dependence of 40 years but quit 2 years ago Plan: The patient was seen and evaluated by Dr. Vazquze Chest x-ray and labs reviewed Continue IV Solu-Medrol, bronchodilators Continue incentive spirometer Increase his activity as tolerated Titrate down the FiO2 as tolerated We will continue to follow I, the cosigning physician, performed a history & physical examination of the patient. Lungs sounds with bilateral end expiratory wheeze, diminished. Maintaining good O2 saturations in the 90s on 1 L/m per nasal cannula. I discussed the assessment and plan of care with my nurse practitioner, Vida Villasenor. I attest to the above note as dictated by her.
[2020-11-11] MEDS ORDERED: ALPRAZolam 0.25 MG TAB PO PRN (10:49)
[2020-11-12] MEDS: methylPREDNISolone SOD SUCCI 125 MG/2 ML VIAL IV SCH ×5 (01:00→23:33)
[2020-11-12] MEDS: HEPARIN SODIUM,PORCINE/PF 5,000 UNIT/0.5 ML SYRINGE SQ SCH ×4 (02:44→23:33)
[2020-11-12 08:01] LABS: Basophils % (A) 0 %; Eosinophils % (A) 0 %; HCT 42.7 % (39.0-53.0); HGB 13.5 gm/dL (13.0-17.5); Lymphocytes # (A) 0.6 k/uL (1.0-4.8); Lymphocytes % (A) 3 %; MCH 28.9 pg (25.0-35.0); MCHC 31.7 g/dL (31.0-37.0); MCV 91.3 fL (80.0-100.0); Monocytes # (A) 0.7 k/uL (0-1.0); Monocytes % (A) 3 %; Neutrophils # (A) 20.1 k/uL (1.3-7.7); Neutrophils % (A) 94 %; Platelet Count 319 k/uL (150-450); RBC 4.68 m/uL (4.30-5.90); RDW 14.1 % (11.5-15.5); WBC 21.5 k/uL (3.8-10.6)
[2020-11-12] MEDS: PANTOPRAZOLE 40 MG TABLET PO SCH (08:28)
[2020-11-12 08:32] LABS: ALT 25 U/L (4-49); AST 31 U/L (17-59); African American GFR (CKD) >90 (>60 ml/min/1.73 sqM); Albumin 3.7 g/dL (3.5-5.0); Alkaline Phosphatase 55 U/L (38-126); Anion Gap 6 mmol/L; Blood Urea Nitrogen 18 mg/dL (9-20); Calcium 9.2 mg/dL (8.4-10.2); Carbon Dioxide 34 mmol/L (22-30); Chloride 97 mmol/L (98-107); Glucose 122 mg/dL (74-99); Non-African American GFR(CKD) >90 (>60 ml/min/1.73 sqM); Potassium 4.4 mmol/L (3.5-5.1); Sodium 137 mmol/L (137-145); Total Bilirubin 0.3 mg/dL (0.2-1.3); Total Protein 6.3 g/dL (6.3-8.2)
[2020-11-12] MEDS: BUDESONIDE 1 MG/2 ML NEBU INHALATION SCH ×2 (08:41→20:01)
[2020-11-12] MEDS: FORMOTEROL FUMARATE 20 MCG/2 ML NEBU INHALATION SCH ×2 (08:41→20:01)
[2020-11-12] MEDS: IPRATROPIUM-ALBUTEROL 3 ML NEB INHALATION SCH ×4 (08:41→20:01)
--- NOTE | 2020-11-12 13:04 | P.PN ---
Subjective Progress Note Date: 11/12/20 Principal diagnosis: Spontaneous left-sided pneumothorax This is a 59-year-old gentleman who has a history of 40 years of chronic tobacco dependence and chronic obstructive pulmonary disease and follows with Dr. Shelby as his primary care provider. He is maintained on Qvar. He presented here to the emergency room yesterday with significant worsening shortness of breath that had been going on throughout most of the morning. He was more short of breath than usual. He was using his rescue inhaler without any improvement. His initial chest x-ray revealed evidence of severe COPD and bullous emphysema. There is also a 25% left-sided pneumothorax. A Thoravent was placed in the emergency room. He was admitted to the intensive care unit. He is seen today in consultation. He is currently sitting up right in bed. Leaning forward. Still with some dyspnea on conversation and minimal exertion. Chest tube is to wall suction. No leak is present. Arterial blood gases on 100% FiO2 had revealed a pO2 greater than 400, pCO2 66, pH 7.23. White count 9.3. Hemoglobin 14.3. Sodium 137. Potassium 4.5. Creatinine 0.54. Initial lactic acid 4.8. He's been initiated on IV Solu-Medrol, albuterol. Received 1 dose of ceftriaxone. The patient is seen today 11/10/2020 in follow-up in the intensive care unit. He is currently resting comfortably in bed. Lung short of breath today compared to yesterday. More comfortable. He is maintaining O2 saturations in the 90s on 3 L/m per nasal cannula. His Thora-Vent remains in place and has been capped. No IV fluids. Chest x-ray is stable similar to yesterday with temperature setting pneumothorax. White count 25.2. Hemoglobin 13.4. Sodium 138. Potassium 4.3. Bicarb 32. Creatinine 0.54. Glucose 151. He remains on bronchodilators, IV Solu-Medrol. Working well with the incentive spirometer. Heparin for DVT prophylaxis. The patient is seen today 11/11/2020 in follow-up in the intensive care unit. He is currently sitting up in bed. Awake and alert in no acute distress. He is down to 1 L of oxygen. No IV fluids. Thora vent was removed yesterday. Today's chest x-ray shows a small left apical pneumothorax. No worsening shortness of breath, cough or congestion. No hemoptysis. Blood cultures reveal no growth. White count 25.5. Hemoglobin 13.3. Sodium 138. Potassium 4.4. Creatinine 0.57. Glucose 136. AST 20. ALT 16. Left chest dressing is dry and intact. Pain is well controlled. He remains on DuoNeb inhalations, Pulmicort and Perforomist inhalations, IV Solu-Medrol. Pulling approximately a 1000 ML's on the incentive spirometer. The patient is seen today 11/12/2020 in follow-up on the regular medical floor. He is currently sitting up in bed. Awake and alert in no acute distress. States he is about 70% back to his baseline. No worsening shortness of breath. Still dyspneic with minimal exertion. He is maintaining O2 saturations in the 90s on 2 L/m per nasal cannula. Blood cultures reveal no growth. White count 21.5. Hemoglobin 13.5. Sodium 137. Potassium 4.4. Creatinine 0.58. He remains on DuoNeb inhalations, Pulmicort and Perforomist inhalations, IV Solu-Me drol. Working with the incentive spirometer. Objective - Vital Signs Vital signs: Vital Signs Temp 97.7 F 11/12/20 07:34 Pulse 94 11/12/20 09:00 Resp 18 11/12/20 07:34 BP 124/72 11/12/20 07:34 Pulse Ox 96 11/12/20 07:34 Intake & Output 11/11/20 11/12/20 11/12/20 18:59 06:59 18:59 Intake Total 600 Output Total 600 Balance 0 Intake: Oral 600 Output: Urine 600 Other: Voiding Method Toilet Toilet # Voids 0 - Exam GENERAL EXAM: Alert, 59-year-old male patient, appears older than stated age, on 2 L nasal cannula, comfortable in mild respiratory distress. HEAD: Normocephalic. EYES: Normal reaction of pupils, equal size. NOSE: Clear with pink turbinates. THROAT: No erythema or exudates. NECK: No masses, no JVD. CHEST: Left sided Thora-Vent removed, dressing dry and intact.. LUNGS: Equal air entry with bilateral end expiratory wheeze, diminished CVS: S1 and S2 normal with no audible murmur, regular rhythm. ABDOMEN: No hepatosplenomegaly, normal bowel sounds, no guarding or rigidity. SPINE: No scoliosis or deformity SKIN: No rashes CENTRAL NERVOUS SYSTEM: No focal deficits, tone is normal in all 4 extremities. EXTREMITIES: There is no peripheral edema. No clubbing, no cyanosis. Peripheral pulses are intact. - Labs CBC & Chem 7: 11/12/20 07:26 11/12/20 07:26 Labs: Abnormal Lab Results - Last 24 Hours (Table) 11/12/20 11/12/20 Range/Units 07:26 07:26 WBC 21.5 H (3.8-10.6) k/uL Neutrophils # 20.1 H (1.3-7.7) k/uL Lymphocytes # 0.6 L (1.0-4.8) k/uL Chloride 97 L (98-107) mmol/L Carbon Dioxide 34 H (22-30) mmol/L Creatinine 0.58 L (0.66-1.25) mg/dL Glucose 122 H (74-99) mg/dL Microbiology - Last 24 Hours (Table) 11/08/20 15:02 Blood Culture - Preliminary Blood No Growth after 72 hours 11/08/20 15:02 Blood Culture - Preliminary Blood No Growth after 72 hours Assessment and Plan Assessment: 1 Acute left-sided spontaneous pneumothorax, status post Thora-Vent placement on 11/08/2020, capped 11/09/2020, removed 11/10/2020 2 Severe bolus emphysema/COPD 3 Chronic tobacco dependence of 40 years but quit 2 years ago Plan: The patient was seen and evaluated by Dr. Vazquez Continue IV Solu-Medrol, bronchodilators Continue incentive spirometer Increase his activity as tolerated Titrate down the FiO2 as tolerated Possible discharge within the next 24 hours We will continue to follow I, the cosigning physician, performed a history & physical examination of the patient. Lungs sounds with bilateral end expiratory wheeze, diminished. Maintaining good O2 saturations in the 90s on 2 L/m per nasal cannula. I discussed the assessment and plan of care with my nurse practitioner, Vida Villasenor. I attest to the above note as dictated by her.
--- NOTE | 2020-11-12 18:47 | P.PN ---
Subjective Progress Note Date: 11/12/20 This is a 59-year-old male patient of Dr. Shelby who presented to the ER with complaints of shortness of breath. Patient reports that he woke up in the morning which chest pain and shortness of breath. Patient does have a significant past medical history of COPD and previous nicotine dependence. Patient reports that he took a couple puffs inhaler without relief. Upon arrival to emergency room chest x-ray was completed showing COPD with left-sided proximal 25% pneumothorax. Thoravent was placed in emergency room. Patient was started on IV steroids. Patient was admitted to the intensive care unit. Pulmonary and cardiothoracic surgery consulted. At this time patient is still complaining of some shortness of breath. Patient denies chest pain. Patient denies nausea vomiting or diarrhea. Patient denies any urinary burning or frequency On 11/09/2020 patient's alert and oriented 3. Thoravent has been capped per cardiothoracic team. Repeat chest x-ray has been ordered patient is still having some shortness of breath. Patient remains on IV steroids. Patient denies chest pain. Patient denies nausea vomiting or diarrhea. Patient denies any urinary burning or frequency. Per nursing staff patient has been ordered out of intensive care unit to [facility]. Repeat labs in a.m. On 11/10/2020 patient was seen and examined in the ICU he reports some improvement in his shortness of breath, otherwise he denies any complaints, there is no fever or chills no headache or dizziness no chest pain no cough no nausea or vomiting no abdominal pain no diarrhea no blood in the stools no burning with urination no frequency or urgency and no hematuria consort numbness in any of the extremities no change in vision or gait or speech. On 11/11/2020 patient's alert and oriented 3. Thoravent was removed yesterday. Chest x-ray today showing stable appearing right-sided pneumothorax includes some loculation at the left base. Patient does report some improvement with shortness of breath. Patient denies chest pain. Patient denies nausea vomiting or diarrhea. Patient denies any urinary burning or frequency On 11/12/2020 Patient was seen and examined on the medical floor, he is alert and oriented x 3 in no distress, shortness of breath is improving gradually otherwise he denies any complaints there is no fever or chills no headache or dizziness no chest pain no palpitation no cough no nausea or vomiting no abdominal pain no diarrhea no blood in the stools no burning with urination no frequency or urgency and no hematuria, there is no weakness or numbness in any of the extremities no change in vision speech or gait. Objective - Vital Signs Vital signs: Vital Signs Temp 97.7 F 11/12/20 07:34 Pulse 94 11/12/20 09:00 Resp 18 11/12/20 07:34 BP 124/72 11/12/20 07:34 Pulse Ox 96 11/12/20 07:34 Intake & Output 11/11/20 11/12/20 11/12/20 18:59 06:59 18:59 Intake Total 600 Output Total 600 Balance 0 Intake: Oral 600 Output: Urine 600 Other: Voiding Method Toilet Toilet # Voids 0 - Exam Head normocephalic and atraumatic Neck supple no JVD no goiter Lungs clear to auscultation bilaterally no wheezing or crackles. Diminished Heart regular rate and rhythm S1-S2, no rub or gallop Abdomen is soft nontender nondistended positive bowel sounds no hepatosplenomegaly Extremities no edema no cyanosis or clubbing Neuro alert and orientated to 3 - Labs CBC & Chem 7: 11/12/20 07:26 11/12/20 07:26 Labs: Abnormal Lab Results - Last 24 Hours (Table) 11/12/20 11/12/20 Range/Units 07:26 07:26 WBC 21.5 H (3.8-10.6) k/uL Neutrophils # 20.1 H (1.3-7.7) k/uL Lymphocytes # 0.6 L (1.0-4.8) k/uL Chloride 97 L (98-107) mmol/L Carbon Dioxide 34 H (22-30) mmol/L Creatinine 0.58 L (0.66-1.25) mg/dL Glucose 122 H (74-99) mg/dL Microbiology - Last 24 Hours (Table) 11/08/20 15:02 Blood Culture - Preliminary Blood No Growth after 72 hours 11/08/20 15:02 Blood Culture - Preliminary Blood No Growth after 72 hours Assessment and Plan Assessment: 1. Acute spontaneous left-sided pneumothorax. Status post Thoravent placement on 11/08/2020. Thoravent capped per cardiothoracic team On 11/09/2020. Status post removal on 11/10/2020 2. COPD exacerbation. Patient maintained on Solu-Medrol, and inhaled bronchodilators 3. History of nicotine dependence. Patient reports he quit 2 years ago Patient currently in the intensive care unit Thoravent removed on 11/10/2020 Patient maintained on IV steroids and DuoNeb breathing treatments Pulmonary and cardiothoracic team following repeat chest xray ordered
[2020-11-13] MEDS: methylPREDNISolone SOD SUCCI 125 MG/2 ML VIAL IV SCH ×4 (05:49→23:44)
[2020-11-13] MEDS: FORMOTEROL FUMARATE 20 MCG/2 ML NEBU INHALATION SCH ×2 (08:16→20:48)
[2020-11-13] MEDS: IPRATROPIUM-ALBUTEROL 3 ML NEB INHALATION SCH ×4 (08:16→20:48)
[2020-11-13] MEDS: BUDESONIDE 1 MG/2 ML NEBU INHALATION SCH ×2 (08:16→20:48)
[2020-11-13] MEDS: HEPARIN SODIUM,PORCINE/PF 5,000 UNIT/0.5 ML SYRINGE SQ SCH ×3 (09:11→23:44)
[2020-11-13] MEDS: PANTOPRAZOLE 40 MG TABLET PO SCH (09:11)
--- NOTE | 2020-11-13 09:23 | XR ---
EXAMINATION TYPE: XR chest 1V portable DATE OF EXAM: 11/13/2020 COMPARISON: 11/12/2019 HISTORY: 59 years Male. STUDY INDICATION GIVEN: s/p left pneumothorax . TECHNIQUE: AP upright portable chest radiograph FINDINGS AND IMPRESSION: Hyperinflated lungs. Stable size left apical pneumothorax. The widest distance between the pleural surface and the left ch est wall is 2.0 centimeters similar to prior study. Continued follow could be of additional benefit. Bilateral upper linear opacities could be on the basis of atelectasis and/or scarring. No significant change. No large pleural effusion. Normal cardiomediastinal silhouette. No acute osseous abnormality. Mild edema over the left chest wall similar to prior study.
--- NOTE | 2020-11-13 10:59 | P.PN ---
Subjective Progress Note Date: 11/13/20 This is a 59-year-old male patient of Dr. Shelby who presented to the ER with complaints of shortness of breath. Patient reports that he woke up in the morning which chest pain and shortness of breath. Patient does have a significant past medical history of COPD and previous nicotine dependence. Patient reports that he took a couple puffs inhaler without relief. Upon arrival to emergency room chest x-ray was completed showing COPD with left-sided proximal 25% pneumothorax. Thoravent was placed in emergency room. Patient was started on IV steroids. Patient was admitted to the intensive care unit. Pulmonary and cardiothoracic surgery consulted. At this time patient is still complaining of some shortness of breath. Patient denies chest pain. Patient denies nausea vomiting or diarrhea. Patient denies any urinary burning or frequency On 11/09/2020 patient's alert and oriented 3. Thoravent has been capped per cardiothoracic team. Repeat chest x-ray has been ordered patient is still having some shortness of breath. Patient remains on IV steroids. Patient denies chest pain. Patient denies nausea vomiting or diarrhea. Patient denies any urinary burning or frequency. Per nursing staff patient has been ordered out of intensive care unit to [facility]. Repeat labs in a.m. On 11/10/2020 patient was seen and examined in the ICU he reports some improvement in his shortness of breath, otherwise he denies any complaints, there is no fever or chills no headache or dizziness no chest pain no cough no nausea or vomiting no abdominal pain no diarrhea no blood in the stools no burning with urination no frequency or urgency and no hematuria consort numbness in any of the extremities no change in vision or gait or speech. On 11/11/2020 patient's alert and oriented 3. Thoravent was removed yesterday. Chest x-ray today showing stable appearing right-sided pneumothorax includes some loculation at the left base. Patient does report some improvement with shortness of breath. Patient denies chest pain. Patient denies nausea vomiting or diarrhea. Patient denies any urinary burning or frequency On 11/12/2020 Patient was seen and examined on the medical floor, he is alert and oriented x 3 in no distress, shortness of breath is improving gradually otherwise he denies any complaints there is no fever or chills no headache or dizziness no chest pain no palpitation no cough no nausea or vomiting no abdominal pain no diarrhea no blood in the stools no burning with urination no frequency or urgency and no hematuria, there is no weakness or numbness in any of the extremities no change in vision speech or gait. On 11/13/2020 patient's alert and oriented 3. Patient reports improvement with shortness of breath. Patient did desat on room air with activity. Repeat chest x-ray ordered per pulmonary. Patient denies chest pain. Patient denies nausea vomiting or diarrhea. Patient denies any urinary burning or frequency Objective - Vital Signs Vital signs: Vital Signs Temp 97.8 F 11/13/20 07:57 Pulse 100 11/13/20 08:33 Resp 22 11/13/20 08:33 BP 135/80 11/13/20 07:57 Pulse Ox 88 L 11/13/20 09:13 Intake & Output 11/12/20 11/13/20 11/13/20 18:59 06:59 18:59 Intake Total 480 Balance 480 Intake: Oral 480 Other: # Voids 2 - Exam Head normocephalic and atraumatic Neck supple no JVD no goiter Lungs clear to auscultation bilaterally no wheezing or crackles. Diminished Heart regular rate and rhythm S1-S2, no rub or gallop Abdomen is soft nontender nondistended positive bowel sounds no hepatospleno megaly Extremities no edema no cyanosis or clubbing Neuro alert and orientated to 3 - Labs CBC & Chem 7: 11/12/20 07:26 11/12/20 07:26 Labs: Microbiology - Last 24 Hours (Table) 11/08/20 15:02 Blood Culture - Preliminary Blood No Growth after 96 hours 11/08/20 15:02 Blood Culture - Preliminary Blood No Growth after 96 hours Assessment and Plan Assessment: 1. Acute spontaneous left-sided pneumothorax. Status post Thoravent placement on 11/08/2020. Thoravent capped per cardiothoracic team On 11/09/2020. Status post removal on 11/10/2020 2. COPD exacerbation. Patient maintained on Solu-Medrol, and inhaled bronchodilators 3. History of nicotine dependence. Patient reports he quit 2 years ago Patient currently in the intensive care unit Thoravent removed on 11/10/2020 Patient maintained on IV steroids and DuoNeb breathing treatments Pulmonary and cardiothoracic team following repeat chest xray ordered
[2020-11-13 11:02] LABS: Basophils # (A) 0 X 10*3/uL (0.00-0.10); Basophils % (A) 0 %; Eosinophils # (A) 0 X 10*3/uL (0.04-0.35); Eosinophils % (A) 0 %; HCT 40.3 % (39.6-50.0); HGB 12.9 g/dL (13.0-17.0); Lymphocytes # (A) 0.74 X 10*3/uL (0.90-5.00); Lymphocytes % (A) 4.8 %; MCH 28.5 pg (27.0-32.0); MCV 89.2 fL (80.0-97.0); Mean Platelet Volume 12.1 fL (9.5-12.2); Monocytes # (A) 0.68 X 10*3/uL (0.20-1.00); Monocytes % (A) 4.4 %; Neutrophils # (A) 13.97 X 10*3/uL (1.80-7.70); Neutrophils % (A) 90.2 %; Platelet Count 276 X 10*3/uL (140-440); RBC 4.52 X 10*6/uL (4.40-5.60); RDW 14.7 % (11.5-14.5); WBC 15.49 X 10*3/uL (4.50-10.00)
[2020-11-13 12:09] LABS: African American GFR (CKD) 125.8 (60.0-200.0); Albumin 3.6 g/dL (3.80-4.90); Albumin/Globulin Ratio 1.64 (1.60-3.17); Anion Gap 7.2 mmol/L (4.00-12.00); BUN/Creat Ratio 33.33 Ratio (12.00-20.00); Calcium 8.7 mg/dL (8.7-10.3); Carbon Dioxide 35.8 mmol/L (21.6-31.8); Globulin 2.2 g/dL (1.6-3.3); Non-African American GFR(CKD) 108.5 (60.0-200.0); Potassium 4.7 mmol/L (3.5-5.5); Total Bilirubin 0.5 mg/dL (0.2-1.2); Total Protein 5.8 g/dL (6.2-8.2)
--- NOTE | 2020-11-13 12:46 | P.PN ---
Subjective Progress Note Date: 11/13/20 Principal diagnosis: Shortness of breath. Spontaneous left-sided pneumothorax This is a 59-year-old gentleman who has a history of 40 years of chronic tobacco dependence and chronic obstructive pulmonary disease and follows with Dr. Shelby as his primary care provider. He is maintained on Qvar. He presented here to the emergency room yesterday with significant worsening shortness of breath that had been going on throughout most of the morning. He was more short of breath than usual. He was using his rescue inhaler without any improvement. His initial chest x-ray revealed evidence of severe COPD and bullous emphysema. There is also a 25% left-sided pneumothorax. A Thoravent was placed in the emergency room. He was admitted to the intensive care unit. He is seen today in consultation. He is currently sitting up right in bed. Leaning forward. Still with some dyspnea on conversation and minimal exertion. Chest tube is to wall suction. No leak is present. Arterial blood gases on 100% FiO2 had revealed a pO2 greater than 400, pCO2 66, pH 7.23. White count 9.3. Hemoglobin 14.3. Sodium 137. Potassium 4.5. Creatinine 0.54. Initial lactic acid 4.8. He's been initiated on IV Solu-Medrol, albuterol. Received 1 dose of ceftriaxone. The patient is seen today 11/10/2020 in follow-up in the intensive care unit. He is currently resting comfortably in bed. Lung short of breath today compared to yesterday. More comfortable. He is maintaining O2 saturations in the 90s on 3 L/m per nasal cannula. His Thora-Vent remains in place and has been capped. No IV fluids. Chest x-ray is stable similar to yesterday with temperature setting pneumothorax. White count 25.2. Hemoglobin 13.4. Sodium 138. Potassium 4.3. Bicarb 32. Creatinine 0.54. Glucose 151. He remains on bronchodilators, IV Solu-Medrol. Working well with the incentive spirometer. Heparin for DVT prophylaxis. The patient is seen today 11/11/2020 in follow-up in the intensive care unit. He is currently sitting up in bed. Awake and alert in no acute distress. He is down to 1 L of oxygen. No IV fluids. Thora vent was removed yesterday. Today's chest x-ray shows a small left apical pneumothorax. No worsening shortness of breath, cough or congestion. No hemoptysis. Blood cultures reveal no growth. White count 25.5. Hemoglobin 13.3. Sodium 138. Potassium 4.4. Creatinine 0.57. Glucose 136. AST 20. ALT 16. Left chest dressing is dry and intact. Pain is well controlled. He remains on DuoNeb inhalations, Pulmicort and Perforomist inhalations, IV Solu-Medrol. Pulling approximately a 1000 ML's on the incentive spirometer. The patient is seen today 11/12/2020 in follow-up on the regular medical floor. He is currently sitting up in bed. Awake and alert in no acute distress. States he is about 70% back to his baseline. No worsening shortness of breath. Still dyspneic with minimal exertion. He is maintaining O2 saturations in the 90s on 2 L/m per nasal cannula. Blood cultures reveal no growth. White count 21.5. Hemoglobin 13.5. Sodium 137. Potassium 4.4. Creatinine 0.58. He remains on DuoNeb inhalations, Pulmicort and Perforomist inhalations, IV Solu- Medrol. Working with the incentive spirometer. Progress note dated 11/13/2020. The patient is again seen in room 475. He is currently feeling much better. On 2 L, saturation is 92%. On room air he is 88%. The patient initially was admitted with a diagnosis of left-sided pneumothorax. A Thora-vent was placed in the emergency department. It was subsequently removed by cardiothoracic surgery. The patient may still have a small left apical pneumothorax. From the pulmonary standpoint, he is feeling much better. White count 15.49, hemoglobin 12.9, hematocrit 40.3, and platelet count 273,000. Sodium 140, potassium 4.7, chlorides 97, CO2 36, anion gap 7, BUN 20, and creatinine 0.6. Chest x-ray from today shows a stable small left-sided pneumothorax. No other changes are noted. Objective - Vital Signs Vital signs: Vital Signs Temp 97.8 F 11/13/20 07:57 Pulse 100 11/13/20 08:33 Resp 22 11/13/20 08:33 BP 135/80 11/13/20 07:57 Pulse Ox 88 L 11/13/20 09:13 Intake & Output 11/12/20 11/13/20 11/13/20 18:59 06:59 18:59 Intake Total 480 Balance 480 Intake: Oral 480 Other: # Voids 2 - Exam Oriented 3. Mild conversational dyspnea. No audible wheezing or use of accessory muscles. Room air saturation 88%. 2 L saturation 93%. HEENT examination is grossly unremarkable. Neck supple. Full range of motion. No adenopathy thyromegaly or neck vein distention. Cardiovascular examination reveals regular rhythm rate. S1-S2 normal. No S3 or S4. No discernible murmur noted. Heart sounds are distant. Heart rate 100 bpm. Lungs reveal bilateral expiratory wheezes and rhonchi. Breath sounds are generally improved. No crackles. Breath sounds are equal bilaterally. Adventitious lung sounds are more prominent on forced maneuver. Abdomen soft bowel sounds are heard. No masses or tenderness. Extremities are intact. No cyanosis clubbing or edema. Skin is without rash or lesion. Neurologic examination is brief but nonfocal. - Labs CBC & Chem 7: 11/13/20 06:26 11/13/20 06:26 Labs: Abnormal Lab Results - Last 24 Hours (Table) 11/13/20 11/13/20 Range/Units 06:26 06:26 WBC 15.49 H (4.50-10.00) X 10*3/uL Hgb 12.9 L (13.0-17.0) g/dL RDW 14.7 H (11.5-14.5) % Immature Gran # 0.10 H (0.00-0.04) X 10*3/uL Neutrophils # 13.97 H (1.80-7.70) X 10*3/uL Lymphocytes # 0.74 L (0.90-5.00) X 10*3/uL Eosinophils # 0 L (0.04-0.35) X 10*3/uL Carbon Dioxide 35.8 H (21.6-31.8) mmol/L BUN/Creatinine Ratio 33.33 H (12.00-20.00) Ratio Glucose 122 H (70-110) mg/dL Total Protein 5.8 L (6.2-8.2) g/dL Albumin 3.60 L (3.80-4.90) g/dL Microbiology - Last 24 Hours (Table) 11/08/20 15:02 Blood Culture - Preliminary Blood No Growth after 96 hours 11/08/20 15:02 Blood Culture - Preliminary Blood No Growth after 96 hours Assessment and Plan Assessment: 1 Acute left-sided spontaneous pneumothorax, status post Thora-Vent placement on 11/08/2020, capped 11/09/2020, removed 11/10/2020. 2 Severe bullous emphysema/COPD. 3 Chronic tobacco dependence of 40 years but quit 2 years ago. 4 Persistent small left apical pneumothorax. Plan: Plan dated 11/13/2020. The patient is doing much better. The patient does have a persistent small left apical pneumothorax. The patient is on appropriate medications. Hopeful discharge in the next 24-48 hours. Additional recommendations and suggestions are forthcoming. We will continue to follow. Time with Patient: Less than 30
[2020-11-14] MEDS: methylPREDNISolone SOD SUCCI 125 MG/2 ML VIAL IV SCH (05:39)
[2020-11-14] MEDS: PANTOPRAZOLE 40 MG TABLET PO SCH (07:18)
[2020-11-14] MEDS: HEPARIN SODIUM,PORCINE/PF 5,000 UNIT/0.5 ML SYRINGE SQ SCH ×2 (07:18→17:12)
[2020-11-14] MEDS: IPRATROPIUM-ALBUTEROL 3 ML NEB INHALATION SCH ×3 (08:01→16:58)
[2020-11-14] MEDS: FORMOTEROL FUMARATE 20 MCG/2 ML NEBU INHALATION SCH (08:01)
[2020-11-14] MEDS: BUDESONIDE 1 MG/2 ML NEBU INHALATION SCH (08:01)
[2020-11-14 08:47] VITALS: RESP 18
[2020-11-14 08:56] LABS: Basophils # (A) 0.01 X 10*3/uL (0.00-0.10); Basophils % (A) 0.1 %; Eosinophils # (A) 0 X 10*3/uL (0.04-0.35); Eosinophils % (A) 0 %; HCT 38.9 % (39.6-50.0); HGB 12.2 g/dL (13.0-17.0); Lymphocytes # (A) 0.54 X 10*3/uL (0.90-5.00); MCHC 31.4 g/dL (32.0-37.0); MCV 89.2 fL (80.0-97.0); Mean Platelet Volume 11.7 fL (9.5-12.2); Monocytes # (A) 0.66 X 10*3/uL (0.20-1.00); Monocytes % (A) 4.9 %; Neutrophils % (A) 90.3 %; Platelet Count 275 X 10*3/uL (140-440); RBC 4.36 X 10*6/uL (4.40-5.60); RDW 14.8 % (11.5-14.5)
[2020-11-14] MEDS ORDERED: predniSONE 20 MG TAB PO SCH (10:15)
[2020-11-14 11:20] LABS: African American GFR (CKD) 125.8 (60.0-200.0); Albumin 3.5 g/dL (3.80-4.90); Albumin/Globulin Ratio 1.84 (1.60-3.17); Anion Gap 7.2 mmol/L (4.00-12.00); Calcium 8.3 mg/dL (8.7-10.3); Carbon Dioxide 36.8 mmol/L (21.6-31.8); Globulin 1.9 g/dL (1.6-3.3); Non-African American GFR(CKD) 108.5 (60.0-200.0); Potassium 4.2 mmol/L (3.5-5.5); Total Bilirubin 0.3 mg/dL (0.3-1.2); Total Protein 5.4 g/dL (6.2-8.2)
[2020-11-14 13:07] VITALS: BMI 18.6
--- NOTE | 2020-11-14 13:23 | P.PN ---
Subjective Progress Note Date: 11/14/20 Principal diagnosis: Left pneumothorax, acute exacerbation of COPD On 11/14/2020 patient seen in follow-up on medical surgical floor. Patient is up ambulating in the hallway, currently on room air, he is quite short of breath with walking, is walking with his oxygen tank however does not have the nasal cannula. Room air pulse ox is 83% with ambulation. He was placed on 2 L of supplemental oxygen and his pulse ox did come up to 89-90%. FiO2 was then increased to 3 L and patient is feeling better and is satting around 91%-92%. Lung sounds are very diminished, no rhonchi no wheezing, yesterday's chest x-ray showed stable left-sided pneumothorax estimated at 2.0 cm. No large pleural effusion. There is some bilateral upper linear atelectasis. Overall the chest x-ray findings have been stable since admission owing stable left sided pneumothorax. His labs have been reviewed, white blood cell count is improving, and is down to 13.6, hemoglobin is 12, sodium is 143, potassium is 4.2, CO2 is 36, B1 is 18 creatinine 0.6. Patient states he has no nebulized treatments at home, no home oxygen, he used to be on Q-smiley 80 Ace inhaler in the past, however most recently he is not on any maintenance inhalers. Patient will need home oxygen as his ambulation pulse ox is only 83% on room air, and patient is significantly dyspneic with exertion. he also needs close outpatient follow-up, and he was given the option of following up with his own spring forger or one of the pulmonologists from [facility] pulmonary service. Otherwise has had no acute events overnight. Objective - Vital Signs Vital signs: Vital Signs Temp 97.7 F 11/14/20 08:00 Pulse 104 H 11/14/20 11:33 Resp 18 11/14/20 08:00 BP 129/72 11/14/20 08:00 Pulse Ox 95 11/14/20 08:00 Intake & Output 11/13/20 11/14/20 11/14/20 18:59 06:59 18:59 Output Total 6 Balance -6 Weight 55.5 kg Output: Urine 6 Other: # Voids 1 - Exam GENERAL EXAM: Alert, very pleasant 59-year-old thin white male, ambulating in the hallway, with an oxygen tank, dyspneic with exertion, but no acute distress, comfortable in no apparent distress. HEAD: Normocephalic/atraumatic. EYES: Normal reaction of pupils, equal size. Conjunctiva pink, sclera white. NOSE: Clear with pink turbinates. THROAT: No erythema or exudates. NECK: No masses, no JVD, no thyroid enlargement, no adenopathy. CHEST: No chest wall deformity. Symmetrical expansion. Left upper chest for event insertion site is covered with surgical dressing, clean dry intact LUNGS: Markedly diminished air entry with no crackles, wheeze, rhonchi or dullness. CVS: Regular rate and rhythm, normal S1 and S2, no gallops, no murmurs, no rubs ABDOMEN: Soft, nontender. No hepatosplenomegaly, normal bowel sounds, no guarding or rigidity. EXTREMITIES: No clubbing, no edema, no cyanosis, 2+ pulses and upper and lower extremities. MUSCULOSKELETAL: Muscle strength and tone normal. SPINE: No scoliosis or deformity SKIN: No rashes CENTRAL NERVOUS SYSTEM: Alert and oriented -3. No focal deficits, tone is normal in all 4 extremities. PSYCHIATRIC: Alert and oriented -3. Appropriate affect. Intact judgment and insight. - Labs CBC & Chem 7: 11/14/20 04:39 11/14/20 04:39 Labs: Abnormal Lab Results - Last 24 Hours (Table) 11/14/20 11/14/20 Range/Units 04:39 04:39 WBC 13.60 H (4.50-10.00) X 10*3/uL RBC 4.36 L (4.40-5.60) X 10*6/uL Hgb 12.2 L (13.0-17.0) g/dL Hct 38.9 L (39.6-50.0) % MCHC 31.4 L (32.0-37.0) g/dL RDW 14.8 H (11.5-14.5) % Immature Gran # 0.09 H (0.00-0.04) X 10*3/uL Neutrophils # 12.30 H (1.80-7.70) X 10*3/uL Lymphocytes # 0.54 L (0.90-5.00) X 10*3/uL Eosinophils # 0 L (0.04-0.35) X 10*3/uL Carbon Dioxide 36.8 H (21.6-31.8) mmol/L BUN/Creatinine Ratio 30.00 H (12.00-20.00) Ratio Glucose 137 H (70-110) mg/dL Calcium 8.3 L (8.7-10.3) mg/dL Total Protein 5.4 L (6.2-8.2) g/dL Albumin 3.50 L (3.80-4.90) g/dL Microbiology - Last 24 Hours (Table) 11/08/20 15:02 Blood Culture - Preliminary Blood No Growth after 120 hours 11/08/20 15:02 Blood Culture - Preliminary Blood No Growth after 120 hours Assessment and Plan Plan: Assessment: #1. Acute hypoxic respiratory failure related to acute left-sided spontaneous pneumothorax, status post Thora-vent placement on 11/08/2020, To wait 2020, and removed on 11/10/2020. Chest x-ray showed stable left lung pneumothorax without reexpansion after insertion of the Thora vent, and without worsening after removal of the Thora vent #2. Severe bullous emphysema #3. Chronic tobacco dependence. 4 years, in remission for last 2 years #4. Persistent small left apical pneumothorax Plan: Yesterday chest x-ray has been reviewed Clinically patient is doing the same No worsening dyspnea Patient does qualify for home oxygen, as he does desaturate to 83% on room air with ambulation Patient will need DuoNeb nebulized treatments 4 times daily and every 2 hours as needed for shortness of breath at home He will need close outpatient follow-up with a spring forger He was given the option of going back to Dr. Sara Mcadams or common to see one a spring forger at the [facility] pulmonary/critical care and sleep medicine Otherwise stable for discharge home today to the arrangements have been made for home oxygen, and breathing treatments. He can complete outpatient prednisone taper. I performed a history & physical examination of the patient and discussed their management with my nurse practitioner, Neva Escamilla. I reviewed the nurse practitioner's note and agree with the documented findings and plan of care. Lung sounds are positive for dim breath sounds throughout the lung sharif. The findings and the impression was discussed with the patient. I attest to the documentation by the nurse practitioner. Time with Patient: Less than 30
[2020-11-14 15:14] VITALS: BP 120/76; PULSE 106; TEMP 97.6
--- NOTE | 2020-11-16 11:46 | P.DS ---
Providers Date of admission: 11/08/20 20:03 Expected date of discharge: 11/14/20 Attending physician: Penelope Orta Consults: 11/08/20 20:03 Consult Physician Routine Consulting Provider: Russell Whitley Thoracic CV Surgery Consult Reason/Comments: Pneumothorax Do you want consulting provider notified?: Yes Consult Physician Stat Consulting Provider: Pepe Vazquez Consult Reason/Comments: Pneumothorax, COPD exacerbation Do you want consulting provider notified?: Yes Primary care physician: Lissy Shelby Hospital Course: Diagnoses on Discharge: 1. Acute spontaneous left-sided pneumothorax. Status post Thoravent placement on 11/08/2020. Thoravent capped per cardiothoracic team On 11/09/2020. Status post removal on 11/10/2020 2. COPD exacerbation. Patient maintained on Solu-Medrol, and inhaled bronchodilators 3. History of nicotine dependence. Patient reports he quit 2 years ago Hospital course: This is a 59-year-old male patient of Dr. Shelby who presented to the ER with complaints of shortness of breath. Patient reports that he woke up in the morning which chest pain and shortness of breath. Patient does have a significant past medical history of COPD and previous nicotine dependence. Patient reports that he took a couple puffs inhaler without relief. Upon arrival to emergency room chest x-ray was completed showing COPD with left-sided proximal 25% pneumothorax. Thoravent was placed in emergency room. Patient was started on IV steroids. Patient was admitted to the intensive care unit. Pulmonary and cardiothoracic surgery consulted. At this time patient is still complaining of some shortness of breath. Patient denies chest pain. Patient denies nausea vomiting or diarrhea. Patient denies any urinary burning or frequency On 11/09/2020 patient's alert and oriented 3. Thoravent has been capped per cardiothoracic team. Repeat chest x-ray has been ordered patient is still having some shortness of breath. Patient remains on IV steroids. Patient denies chest pain. Patient denies nausea vomiting or diarrhea. Patient denies any urinary burning or frequency. Per nursing staff patient has been ordered out of intensive care unit to [facility] floor. Repeat labs in a.m. On 11/10/2020 patient was seen and examined in the ICU he reports some improvement in his shortness of breath, otherwise he denies any complaints, there is no fever or chills no headache or dizziness no chest pain no cough no nausea or vomiting no abdominal pain no diarrhea no blood in the stools no burning with urination no frequency or urgency and no hematuria consort numbness in any of the extremities no change in vision or gait or speech. On 11/11/2020 patient's alert and oriented 3. Thoravent was removed yesterday. Chest x-ray today showing stable appearing right-sided pneumothorax includes some loculation at the left base. Patient does report some improvement with shortness of breath. Patient denies chest pain. Patient denies nausea vomiting or diarrhea. Patient denies any urinary burning or frequency On 11/12/2020 Patient was seen and examined on the medical floor, he is alert and oriented x 3 in no distress, shortness of breath is improving gradually otherwise he denies any complaints there is no fever or chills no headache or dizziness no chest pain no palpitation no cough no nausea or vomiting no abdominal pain no diarrhea no blood in the stools no burning with urination no frequency or urgency and no hematuria, there is no weakness or numbness in any of the extremities no change in vision speech or gait. On 11/13/2020 patient's alert and oriented 3. Patient reports improvement with shortness of breath. Patient did desat on room air with activity. Repeat chest x-ray ordered per pulmonary. Patient denies chest pain. Patient denies nausea vomiting or diarrhea. Patient denies any urinary burning or frequency On 11/14/2020 patient's alert and oriented 3. patient has been cleared for discharge. Patient will be DC'd on prednisone taper and follow-up with PCP and cardiothoracic surgery. Patient denies chest pain. Patient denies nausea v omiting or diarrhea. Patient denies any urinary burning or frequency Patient Condition at Discharge: Stable Plan - Discharge Summary Discharge Rx Participant: Yes New Discharge Prescriptions: New Ipratropium-Albuterol Nebulize [Duoneb 0.5 mg-3 mg/3 ml Soln] 3 ml INHALATION QID 30 Days #6 box Budesonide [Pulmicort] 1 mg INHALATION RT-BID ml predniSONE 10 mg PO DAILY 16 Days #40 tab Ipratropium-Albuterol Nebulize [Duoneb 0.5 mg-3 mg/3 ml Soln] 3 ml INHALATION RT-QID ml Continue Ergocalciferol (Vitamin D2) [Jamieol (50,000 Iu)] 1,250 mcg PO MO Multivitamins, Thera [Multivitamin (formulary)] 1 tab PO DAILY Aspirin EC [Ecotrin Low Dose] 81 mg PO Q48H Discharge Medication List Aspirin EC [Ecotrin Low Dose] 81 mg PO Q48H 11/08/20 [History] Ergocalciferol (Vitamin D2) [Drisdol (50,000 Iu)] 1,250 mcg PO MO 11/08/20 [History] Multivitamins, Thera [Multivitamin (formulary)] 1 tab PO DAILY 11/08/20 [History] Budesonide [Pulmicort] 1 mg INHALATION RT-BID ml 11/14/20 [Rx] Ipratropium-Albuterol Nebulize [Duoneb 0.5 mg-3 mg/3 ml Soln] 3 ml INHALATION QID 30 Days #6 box 11/14/20 [Rx] Ipratropium-Albuterol Nebulize [Duoneb 0.5 mg-3 mg/3 ml Soln] 3 ml INHALATION RT-QID ml 11/14/20 [Rx] predniSONE 10 mg PO DAILY 16 Days #40 tab 11/14/20 [Rx] Follow up Appointment(s)/Referral(s): Myra Abad NPC [Nurse Practitioner] - 11/18/20 1:30 pm [facility],Equipment [NON-STAFF] - As Needed (Nebulizer and oxygen ) Dakotah Walter MD [STAFF PHYSICIAN] - 11/18/20 1:30 pm Favian Rivera MD [STAFF PHYSICIAN] - 12/02/20 2:30 pm (With Anastacia Villasenor) Patient Instructions/Handouts: Spontaneous Pneumothorax (DC), COPD (Chronic Obstructive Pulmonary Disease) (GEN) Discharge Disposition: HOME WITH HOME HEALTH SERVICES
== END 2020-11-14 17:52 | disposition home health service (06) | DRG 200 ==
LOC: EC 14:02 → 2SICU 20:03 → 4SSUR 11-12 03:19
PROVIDERS: ADMIT Internal Medicine; ATTEND Internal Medicine
PROC: 0W9B30Z Drainage of Left Pleural Cavity with Drainage Device, Percutaneous Approach (ICD-10-PCS; principal; 2020-11-08)
DX: J93.83 Other pneumothorax (principal); J98.11 Atelectasis; F17.200 Nicotine dependence, unspecified, uncomplicated; J43.9 Emphysema, unspecified; Z79.52 Long term (current) use of systemic steroids
CPT/HCPCS: 36415; 36600; 71045; 71046; 80048; 80053; 82805; 83605; 83735; 84484; 85025; 85379; 85610; 85730; 87040; 93005; 94640; 94660; 94760; 96361; 96365; 96372; 96375; 99291

== ENCOUNTER 2020-12-30 17:18 | Inpatient (IN) | payer MEDICARE, OTHER ==
[2020-12-30] MEDS ORDERED: MORPHINE SULFATE 4 MG/ML SYRINGE IVP STA (18:08)
--- NOTE | 2020-12-30 18:18 | ED ---
General Adult HPI - General Chief complaint: Shortness of Breath Stated complaint: SOB, collapsed lung Time Seen by Provider: 12/30/20 17:45 Source: patient, RN notes reviewed Mode of arrival: ambulatory Limitations: no limitations - History of Present Illness Initial comments: Patient is a pleasant 60-year-old male presenting to the emergency Department with chest discomfort and shortness of breath. Symptoms have been occurring for several months now. Patient had a procedure done here with Dr. Carranza. Patient followed up with his doctor and then went to [facility] and then went to another hospital. Patient did have several procedures, including chest tube 2. One chest tube was removed. Patient was then transferred to rehab facility [facility]. Patient is still having discomfort as source of breath, somewhat increased. Patient has not been able to eat or drink well and has been losing weight. - Related Data Home Medications Medication Instructions Recorded Confirmed Aspirin EC [Ecotrin Low Dose] 81 mg PO DAILY 11/08/20 12/30/20 Ascorbic Acid [Vitamin C] 500 mg PO DAILY 12/30/20 12/30/20 Cephalexin [Keflex] 500 mg PO DIRECTED 12/30/20 12/30/20 Enoxaparin [Lovenox] 40 mg SQ DIRECTED 12/30/20 12/30/20 Ensure Clear 1 can PO TID 12/30/20 12/30/20 Famotidine [Pepcid] 20 mg PO DIRECTED 12/30/20 12/30/20 Gabapentin 300 mg PO DIRECTED 12/30/20 12/30/20 HYDROcodone/APAP 7.5-325MG [[place] 1 tab PO DIRECTED 12/30/20 12/30/20 7.5-325] Lidocaine 5% Patch [Lidoderm] 1 patch TRANSDERM DIRECTED 12/30/20 12/30/20 Magic Cup 1 dose PO DAILY 12/30/20 12/30/20 Magnesium Gluconate [Magonate] 500 mg PO BID 12/30/20 12/30/20 Methocarbamol [Robaxin-750] 750 mg PO DIRECTED 12/30/20 12/30/20 Midodrine HCl [ProAmatine] 10 mg PO DIRECTED 12/30/20 12/30/20 Multivitamins, Thera [Multivitamin 1 tab PO DAILY 12/30/20 12/30/20 (formulary)] Sertraline HCl [Zoloft] 25 mg PO DIRECTED 12/30/20 12/30/20 Tamsulosin HCl [Flomax] 0.4 mg PO DIRECTED 12/30/20 12/30/20 metroNIDAZOLE [Flagyl] 500 mg PO DIRECTED 12/30/20 12/30/20 polyethylene glycoL 3350 [Miralax] 17 gm PO DAILY 12/30/20 12/30/20 Allergies Allergy/AdvReac Type Severity Reaction Status Date / Time No Known Allergies Allergy Verified 12/30/20 18:41 Review of Systems ROS Statement: Those systems with pertinent positive or pertinent negative responses have been documented in the HPI. ROS Other: All systems not noted in ROS Statement are negative. Constitutional: Reports: chills Eyes: Denies: eye pain ENT: Denies: ear pain Respiratory: Reports: cough (Occasional mild green sputum), dyspnea Cardiovascular: Reports: chest pain Endocrine: Reports: fatigue Gastrointestinal: Denies: abdominal pain Genitourinary: Denies: dysuria Musculoskeletal: Denies: back pain Skin: Denies: rash Neurological: Denies: headache Past Medical History Past Medical History: COPD, Pneumonia History of Any Multi-Drug Resistant Organisms: None Reported Past Surgical History: No Surgical Hx Reported Additional Past Surgical History / Comment(s): lobe wedge resection left lung Past Anesthesia/Blood Transfusion Reactions: No Reported Reaction Past Psychological History: No Psychological Hx Reported Past Alcohol Use History: None Reported Past Drug Use History: None Reported General Exam Limitations: no limitations General appearance: alert Head exam: Present: normocephalic Eye exam: Present: normal appearance Neck exam: Present: normal inspection Respiratory exam: Present: normal lung sounds bilaterally, other (Chest tube left lateral) Cardiovascular Exam: Present: tachycardia GI/Abdominal exam: Present: soft. Absent: tenderness Extremities exam: Present: normal inspection Neurological exam: Present: alert Psychiatric exam: Present: normal affect, normal mood Skin exam: Present: normal color Course Vital Signs 12/30/20 12/30/20 17:22 18:27 Temperature 97.9 F Pulse Rate 96 102 H Respiratory 111 H 18 Rate Blood Pressure 100/53 108/57 O2 Sat by Pulse 98 99 Oximetry - Reevaluation(s) Reevaluation #1: 12/30/20 20:11 There is concern for sepsis diagnosed at 2009. Blood culture and lactic acid and IV antibiotics will be ordered. EKG Findings - EKG Comments: EKG Findings:: Sinus rhythm with a rate of 100. AK 114. QRS 84. QT 344. QTC 443. Right axis. Poor R-wave progression. No acute ST change. Medical Decision Making - Medical Decision Making Patient reevaluated. Patient and family updated. Case discussed with Dr. Orta, who will admit covering for Dr. pereira. Case also discussed with Dr. Rivera was mildly aware patient. He also spoke with family and review chest x-ray. He does request computed tomography scan. Antibiotics will be started. - Lab Data Result diagrams: 12/30/20 18:21 12/30/20 18:21 Lab Results 12/30/20 12/30/20 12/30/20 Range/Units 18:21 18:21 18:21 WBC 20.7 H (3.8-10.6) k/uL RBC 3.71 L (4.30-5.90) m/uL Hgb 10.3 L D (13.0-17.5) gm/dL Hct 32.5 L (39.0-53.0) % MCV 87.5 (80.0-100.0) fL MCH 27.8 (25.0-35.0) pg MCHC 31.7 (31.0-37.0) g/dL RDW 13.9 (11.5-15.5) % Plt Count 759 H D (150-450) k/uL MPV 8.3 Neutrophils % 89 % Lymphocytes % 4 % Monocytes % 6 % Eosinophils % 1 % Basophils % 0 % Neutrophils # 18.4 H (1.3-7.7) k/uL Lymphocytes # 0.8 L (1.0-4.8) k/uL Monocytes # 1.2 H (0-1.0) k/uL Eosinophils # 0.1 (0-0.7) k/uL Basophils # 0.1 (0-0.2) k/uL Hypochromasia Slight PT 13.3 H (9.0-12.0) sec INR 1.3 H (<1.2) APTT 28.1 (22.0-30.0) sec Sodium 132 L (137-145) mmol/L Potassium 3.7 (3.5-5.1) mmol/L Chloride 80 L (98-107) mmol/L Carbon Dioxide 43 H* (22-30) mmol/L Anion Gap 9 mmol/L BUN 14 (9-20) mg/dL Creatinine 0.40 L (0.66-1.25) mg/dL Est GFR (CKD-EPI)AfAm >90 (>60 ml/min/1.73 sqM) Est GFR (CKD-EPI)NonAf >90 (>60 ml/min/1.73 sqM) Glucose 146 H (74-99) mg/dL Plasma Lactic Acid Mustapha (0.7-2.0) mmol/L Calcium 8.4 (8.4-10.2) mg/dL Total Bilirubin 0.5 (0.2-1.3) mg/dL AST 21 (17-59) U/L ALT 9 (4-49) U/L Alkaline Phosphatase 85 (38-126) U/L Troponin I (0.000-0.034) ng/mL Total Protein 6.1 L (6.3-8.2) g/dL Albumin 2.8 L (3.5-5.0) g/dL 12/30/20 12/30/20 Range/Units 18:21 18:21 WBC (3.8-10.6) k/uL RBC (4.30-5.90) m/uL Hgb (13.0-17.5) gm/dL Hct (39.0-53.0) % MCV (80.0-100.0) fL MCH (25.0-35.0) pg MCHC (31.0-37.0) g/dL RDW (11.5-15.5) % Plt Count (150-450) k/uL MPV Neutrophils % % Lymphocytes % % Monocytes % % Eosinophils % % Basophils % % Neutrophils # (1.3-7.7) k/uL Lymphocytes # (1.0-4.8) k/uL Monocytes # (0-1.0) k/uL Eosinophils # (0-0.7) k/uL Basophils # (0-0.2) k/uL Hypochromasia PT (9.0-12.0) sec INR (<1.2) APTT (22.0-30.0) sec Sodium (137-145) mmol/L Potassium (3.5-5.1) mmol/L Chloride (98-107) mmol/L Carbon Dioxide (22-30) mmol/L Anion Gap mmol/L BUN (9-20) mg/dL Creatinine (0.66-1.25) mg/dL Est GFR (CKD-EPI)AfAm (>60 ml/min/1.73 sqM) Est GFR (CKD-EPI)NonAf (>60 ml/min/1.73 sqM) Glucose (74-99) mg/dL Plasma Lactic Acid Mustapha 1.5 (0.7-2.0) mmol/L Calcium (8.4-10.2) mg/dL Total Bilirubin (0.2-1.3) mg/dL AST (17-59) U/L ALT (4-49) U/L Alkaline Phosphatase (38-126) U/L Troponin I <0.012 (0.000-0.034) ng/mL Total Protein (6.3-8.2) g/dL Albumin (3.5-5.0) g/dL - Radiology Data Radiology results: image reviewed (Chest x-ray shows bullous pulmonary emphysema. Left chest tube. Fluid level left lung apex. 7 cm. Patchy infiltrate left lower lobe.) Critical Care Time Critical Care Time: Yes Total Critical Care Time: 32 Disposition Clinical Impression: Sepsis, Pneumonia Disposition: ADMITTED IP TO THIS [facility] Condition: Serious Is patient prescribed a controlled substance at d/c from ED?: No Referrals: Lissy Shelby MD [Primary Care Provider] - 1-2 days Decision Time: 20:11
[2020-12-30 18:39] LABS: INR 1.3 (<1.2); Partial Thromboplastin Time 28.1 sec (22.0-30.0); Prothrombin Time 13.3 sec (9.0-12.0)
[2020-12-30 18:40] LABS: ALT 9 U/L (4-49); AST 21 U/L (17-59); African American GFR (CKD) >90 (>60 ml/min/1.73 sqM); Albumin 2.8 g/dL (3.5-5.0); Alkaline Phosphatase 85 U/L (38-126); Blood Urea Nitrogen 14 mg/dL (9-20); Calcium 8.4 mg/dL (8.4-10.2); Chloride 80 mmol/L (98-107); Glucose 146 mg/dL (74-99); Non-African American GFR(CKD) >90 (>60 ml/min/1.73 sqM); Potassium 3.7 mmol/L (3.5-5.1); Sodium 132 mmol/L (137-145); Total Bilirubin 0.5 mg/dL (0.2-1.3); Total Protein 6.1 g/dL (6.3-8.2)
[2020-12-30 18:47] LABS: Anion Gap 9 mmol/L
[2020-12-30 18:48] LABS: Carbon Dioxide 43 mmol/L (22-30)
[2020-12-30 18:49] LABS: Basophils # (A) 0.1 k/uL (0-0.2); Basophils % (A) 0 %; Eosinophils # (A) 0.1 k/uL (0-0.7); Eosinophils % (A) 1 %; HCT 32.5 % (39.0-53.0); Hypochromasia Slight; Lymphocytes # (A) 0.8 k/uL (1.0-4.8); Lymphocytes % (A) 4 %; MCH 27.8 pg (25.0-35.0); MCHC 31.7 g/dL (31.0-37.0); MCV 87.5 fL (80.0-100.0); Mean Platelet Volume 8.3; Monocytes # (A) 1.2 k/uL (0-1.0); Monocytes % (A) 6 %; Neutrophils # (A) 18.4 k/uL (1.3-7.7); Neutrophils % (A) 89 %; RBC 3.71 m/uL (4.30-5.90); RDW 13.9 % (11.5-15.5); WBC 20.7 k/uL (3.8-10.6)
[2020-12-30 18:52] LABS: HGB 10.3 gm/dL (13.0-17.5); Platelet Count 759 k/uL (150-450)
--- NOTE | 2020-12-30 19:11 | XR ---
EXAMINATION TYPE: XR chest 1V portable DATE OF EXAM: 12/30/2020 COMPARISON: 11/13/2020 HISTORY: Short of breath TECHNIQUE: 2 views FINDINGS: There is left-sided chest tube. Tip is at the left lung apex. There is bullous pulmonary em physema. There is fluid level at the left lung apex. There is blunting left costophrenic angle and pa tchy infiltrate left lower lobe. Right lung shows some linear infiltrate right upper lobe at the apex . There is no heart failure. Heart size is normal. IMPRESSION: Bullous pulmonary emphysema. Left chest tube in good position. Fluid level at the left francie ng apex with the cavity that measures approximately 7 cm. It is not clear if this is in the pleural s pace or within the lung. There is some new patchy infiltrate left lower lobe compared to old exam. Th ere is mild blunting left costophrenic angle. Empyema is possible. There is some right upper lobe lexie ear density consistent with scarring that is not significantly different.
[2020-12-30] MEDS ORDERED: PIPERACILLIN-TAZOBACTAM 3.375 GM in SODIUM CHLORIDE 0.9% 100 ML IVPB STA ×2 (20:12→20:36)
[2020-12-30] MEDS ORDERED: PNEUMONIA PROTOCOL UTILIZED 1 EACH MISC PO PRN (20:12)
[2020-12-30] MEDS ORDERED: AZITHROMYCIN 500 MG in SODIUM CHLORIDE 0.9% 250 ML IVPB STA (20:12)
[2020-12-30] MEDS ORDERED: IPRATROPIUM-ALBUTEROL 3 ML NEB INHALATION PRN (20:12)
[2020-12-30] MEDS ORDERED: RX INFO: IV CONTRAST WAS GIVEN 1 EACH MISC MISCELLANE PRN (20:13)
[2020-12-30] MEDS: SODIUM CHLORIDE 0.9% 1,000 ML IV SCH (20:51)
[2020-12-30] MEDS: MORPHINE SULFATE 4 MG/ML SYRINGE IVP PRN (21:23)
--- NOTE | 2020-12-30 21:38 | CT ---
EXAMINATION TYPE: CT chest w con DATE OF EXAM: 12/30/2020 COMPARISON: Short of breath. HISTORY: collapsed lung CT DLP: 217.7 mGycm Automated exposure control for dose reduction was used. CONTRAST: Performed with IV Contrast, patient injected with 100 mL of Isovue 300. Images obtained from the thoracic inlet to the diaphragm with no contrast. There is a left-sided chest tube and the tip is at the left lung apex. There is no pneumothorax. Ther e is a large air-filled 8 cm space with wall thickening in the left upper lobe at the left lung apex. This does not appear to be in the pleural space. This is probably large bolus emphysema. There are e mphysematous bulla at the right lung apex. There is coarse linear density right upper lobe. There is some reticular and linear infiltrate in the left upper lobe. There are some linear densities in the l eft upper lobe that could be surgical clips. Relation with the surgical history is needed. The trache a is deviated slightly to the left side suggestive of volume loss in the left lung. There is coarse i nfiltrate and atelectasis left lung base. There is small left pleural effusion. Heart size is normal. There are no hilar masses. The thoracic spine is intact. There is no compression fracture. Sternum is intact. IMPRESSION: There is bullous pulmonary emphysema. There is large cavity at the left lung apex that is probably re lated to bullous disease. Left pleural effusion. Coarse infiltrate and atelectasis left lung base. Co arse density also left upper lobe consistent with scarring and atelectasis. There is probably left up per lobe surgery with volume loss. Scarring and atelectasis right lung apex. No definite pneumothorax. Left chest tube in good position.
[2020-12-30] MEDS ORDERED: AZITHROMYCIN 500 MG in SODIUM CHLORIDE 0.9% 250 ML IVPB ONE (23:30)
[2020-12-31] MEDS: MORPHINE SULFATE 4 MG/ML SYRINGE IVP PRN ×5 (01:24→20:04)
[2020-12-31] MEDS: PIPERACILLIN-TAZOBACTAM 3.375 GM in SODIUM CHLORIDE 0.9% 100 ML IVPB SCH ×3 (01:25→15:23)
[2020-12-31] MEDS: SODIUM CHLORIDE 0.9% 1,000 ML IV SCH ×2 (05:47→15:24)
[2020-12-31] MEDS: IPRATROPIUM-ALBUTEROL 3 ML NEB INHALATION SCH ×4 (07:37→19:50)
--- NOTE | 2020-12-31 09:21 | XR ---
EXAMINATION TYPE: XR chest 2V DATE OF EXAM: 12/31/2020 COMPARISON: Chest x-ray and CT one day earlier. HISTORY: Pneumonia. TECHNIQUE: Frontal and lateral views of the chest are obtained. FINDINGS: Moderate to advanced underlying emphysematous change redemonstrated. Persistent left apical chest tube terminating in the left lung apex at level of focal pleural cavity with air-fluid level. Persistent small left pleural effusion and associated left basilar atelectasis and/or infiltrate. Rig ht lung remains clear. Cardiac silhouette size stable and within normal limits. Upper lung parenchyma l scarring redemonstrated. Osseous structures remain demineralized. IMPRESSION: Chronic changes width left apical pleural cavity with dependent fluid and internal drai nage catheter. No new acute infiltrate. No significant change from one day earlier.
[2020-12-31] MEDS: polyethylene glycoL 3350 17 GM POWD.PACK PO SCH (11:46)
[2020-12-31] MEDS ORDERED: VANCOMYCIN IV PER PHARMACY 1 EACH MISC MISCELLANE PRN (12:19)
--- NOTE | 2020-12-31 12:19 | P.CNPUL ---
History of Present Illness Consult date: 12/31/20 Reason for consult: pneumothorax History of present illness: 60-year-old male patient with advanced COPD with chronic emphysematous changes bilaterally. Has been followed up by Dr. Mcadams on outpatient basis with his main warehouse shipping receiving clerk. In summary, the patient was in the hospital at [place] on 11/08/2020 and he came in with a left-sided pneumothorax. A fluoroscopy vent was placed. The left lung expansion was successful. The patient was seen by the CT team. The catheter was removed and the patient was discharged home. During the course of his illness, the patient was given treatment for now underlying COPD exacerbation. In follow-up with his warehouse shipping receiving clerk, the patient was found to have a recurrent left-sided pneumothorax and the patient was sent over to [facility]. Further treatment was done. Ultimately he e nded up going [facility] where he was seen by and based on ongoing problems with pneumothorax and persistent air leaks, the patient underwent a wedge resection, thoracoscopic approach, with pleurodesis. The surgical reports are not available to me at this point in time. In fact none of the reports are not available to me. Ultimately, the patient had 2 chest tubes placed. In the course of his illness, I believe he developed a pleural space infection. [facility] where he was undergoing further treatment. He was also receiving antibiotics. The exact microorganisms cultured and the type of the antibiotics are not available to noted the patient [facility] the [facility] that he wanted and he signed himself out and he came to our emergency for further care. Accordingly, he was hospitalized. In emergency, computed tomography scan of the chest was done. It showed bilateral to them the changes. There is bullous emphysema. There is also a large cavity in the left lung apex is probably related to bullous disease. There is fluid within the bullous probably an infection knowing of the patient's chest tube is draining purulent material. There is also coarse infiltrates and atelectasis in the left lung base. Coarse density also is present in the left upper lobe consistent with scarring. There is volume loss in the left lung consistent with his underlying thoracic surgery. The left sided chest tube is in good location. There is no evidence of any air leak. The patient is weak. He has become quite debilitated and has lost significant amount of weight. His BMI is down to 16.2. His white cell count is at 20.7. Currently is on a combination of Zosyn and vancomycin. Correlation profile is within normal limits. The patient has normal renal function. Serum bicarbonate 43. He is a chronic smoker. He is currently on oxygen and is maintained on 40s about 2 by nasal cannula. He is afebrile. Review of Systems Constitutional: Reports fatigue, Reports poor appetite, Reports weakness, Reports weight loss Eyes: denies as per HPI, denies blurred vision, denies bulging eye, denies decreased vision, denies diplopia, denies discharge, denies dry eye, denies irritation, denies itching, denies pain, denies photophobia, denies loss of peripheral vision, denies loss of vision, denies tunnel vision/blind spots Ears: deny: decreased hearing, ear discharge, earache, tinnitus Ears, nose, mouth and throat: Reports as per HPI Breasts: absent: as per HPI, gynecomastia Cardiovascular: Reports decreased exercise tolerance, Reports dyspnea on exertion Respiratory: Reports cough, Reports dyspnea Gastrointestinal: Reports as per HPI Genitourinary: Reports as per HPI Musculoskeletal: Reports as per HPI Musculoskeletal: absent: ankle pain, ankle stiffness, ankle swelling, as per HPI, elbow pain, elbow stiffness, elbow swelling, foot pain, foot stiffness, foot swelling, hand pain, hand stiffness, hand swelling, hip pain, hip stiffness, hip swelling, knee pain, knee stiffness, knee swelling, shoulder pain, shoulder stiffness, shoulder swelling, wrist pain, wrist stiffness, wrist swelling Integumentary: Reports as per HPI Neurological: Reports as per HPI, Reports weakness Psychiatric: Reports as per HPI Endocrine: Reports as per HPI, Reports fatigue Hematologic/Lymphatic: Reports as per HPI Allergic/Immunologic: Reports as per HPI Past Medical History Past Medical History: COPD, Pneumonia Additional Past Medical History / Comment(s): Pneumothorax, History of Any Multi-Drug Resistant Organisms: None Reported Past Surgical History: No Surgical Hx Reported Additional Past Surgical History / Comment(s): lobe wedge resection left lung Past Anesthesia/Blood Transfusion Reactions: No Reported Reaction Past Psychological History: No Psychological Hx Reported Smoking Status: Former smoker Past Alcohol Use History: None Reported Past Drug Use History: None Reported Medications and Allergies Home Medications Medication Instructions Recorded Confirmed Type Aspirin EC [Ecotrin Low Dose] 81 mg PO DAILY 11/08/20 12/30/20 History Ascorbic Acid [Vitamin C] 500 mg PO DAILY 12/30/20 12/30/20 History Cephalexin [Keflex] 500 mg PO DIRECTED 12/30/20 12/30/20 History Enoxaparin [Lovenox] 40 mg SQ DIRECTED 12/30/20 12/30/20 History Ensure Clear 1 can PO TID 12/30/20 12/30/20 History Famotidine [Pepcid] 20 mg PO DIRECTED 12/30/20 12/30/20 History Gabapentin 300 mg PO DIRECTED 12/30/20 12/30/20 History HYDROcodone/APAP 7.5-325MG [[place] 1 tab PO DIRECTED 12/30/20 12/30/20 History 7.5-325] Lidocaine 5% Patch [Lidoderm] 1 patch TRANSDERM DIRECTED 12/30/20 12/30/20 History Magic Cup 1 dose PO DAILY 12/30/20 12/30/20 History Magnesium Gluconate [Magonate] 500 mg PO BID 12/30/20 12/30/20 History Methocarbamol [Robaxin-750] 750 mg PO DIRECTED 12/30/20 12/30/20 History Midodrine HCl [ProAmatine] 10 mg PO DIRECTED 12/30/20 12/30/20 History Multivitamins, Thera [Multivitamin 1 tab PO DAILY 12/30/20 12/30/20 History (formulary)] Sertraline HCl [Zoloft] 25 mg PO DIRECTED 12/30/20 12/30/20 History Tamsulosin HCl [Flomax] 0.4 mg PO DIRECTED 12/30/20 12/30/20 History metroNIDAZOLE [Flagyl] 500 mg PO DIRECTED 12/30/20 12/30/20 History polyethylene glycoL 3350 [Miralax] 17 gm PO DAILY 12/30/20 12/30/20 History Allergies Allergy/AdvReac Type Severity Reaction Status Date / Time No Known Allergies Allergy Verified 12/30/20 18:41 Physical Exam Vitals: Vital Signs Temp Pulse Pulse Resp BP BP Pulse Ox 12/31/20 08:39 98.4 F 95 19 116/63 95 12/31/20 07:15 18 12/31/20 02:00 98.0 F 91 18 118/69 98 12/30/20 22:30 98.2 F 66 19 113/56 94 L 12/30/20 21:31 75 17 94/58 97 12/30/20 18:27 102 H 18 108/57 99 12/30/20 17:22 97.9 F 96 111 H 100/53 98 Intake and Output 12/30/20 12/31/20 12/31/20 22:59 06:59 14:59 Other: # Voids 1 Weight 49.895 kg Thin and frail, body mass index of 16.2, nonacute a distress HEAD: Normocephalic/atraumatic. EYES: Normal reaction of pupils, equal size. Conjunctiva pink, sclera white. NOSE: Clear with pink turbinates. THROAT: No erythema or exudates. NECK: No masses, no JVD, no thyroid enlargement, no adenopathy. CHEST: No chest wall deformity. Symmetrical expansion. Left sided chest tube is in a good location. No evidence of air leak. Purulent material collecting in the Pleur-evac. LUNGS: Markedly diminished air entry with no crackles, wheeze, rhonchi or dullness. CVS: Regular rate and rhythm, normal S1 and S2, no gallops, no murmurs, no rubs ABDOMEN: Soft, nontender. No hepatosplenomegaly, normal bowel sounds, no guarding or rigidity. EXTREMITIES: No clubbing, no edema, no cyanosis, 2+ pulses and upper and lower extremities. MUSCULOSKELETAL: Muscle strength and tone normal. SPINE: No scoliosis or deformity SKIN: No rashes CENTRAL NERVOUS SYSTEM: Alert and oriented -3. No focal deficits, tone is normal in all 4 extremities. PSYCHIATRIC: Alert and oriented -3. Appropriate affect. Intact judgment and insight. Results - Laboratory Findings CBC and BMP: 12/30/20 18:21 12/30/20 18:21 PT/INR, D-dimer PT 13.3 sec (9.0-12.0) H 12/30/20 18:21 INR 1.3 (<1.2) H 12/30/20 18:21 Abnormal lab findings: Abnormal Labs 12/30/20 12/30/20 12/30/20 18:21 18:21 18:21 WBC 20.7 H RBC 3.71 L Hgb 10.3 L D Hct 32.5 L Plt Count 759 H D Neutrophils # 18.4 H Lymphocytes # 0.8 L Monocytes # 1.2 H PT 13.3 H INR 1.3 H Sodium 132 L Chloride 80 L Carbon Dioxide 43 H* Creatinine 0.40 L Glucose 146 H Total Protein 6.1 L Albumin 2.8 L - Diagnostic Findings Chest x-ray: image reviewed CT scan - chest: image reviewed Assessment and Plan Plan: 1 severe bullous emphysema 2 left-sided pneumothorax. , failed chest tube and ultimately the patient underwent a thoracoscopic wedge resection of the lung with pleurodesis. The surgery was done at [facility] 3 left upper lobe located pneumothorax/fluid-filled bolus. Noted the patient is post pleurodesis. There is an air-fluid level within the left upper lobe cavity which is probably representation of an underlyinginfection. Chest tube is in a good location. There is no evidence of any air leak. There is purulent material draining in the Pleur-evac. 4 leukocytosis secondary to above 5 secondary erythrocytosis related to pleural space infection 6 debility and weight loss with a body mass index of 16.2 7 history of chronic smoker. The patient quit smoking approximately 2 years ago. Plan Will need all of the records from the other facilities to give details of his treatment Center fluid collecting in the Pleur-evac for cultures continue Zosyn and vancomycin for now provide the patient incentive spirometer oxygen to maintain saturation above 90% Unfortunately this the pleural space infection. We'll consult with our thoracic surgeons. However is very reasonable the patient to be considered to go back to his surgeon at [facility] for further input. It is likely the patient will need long-term chest tube drainage and antibiotic treatment in an attempt to clear this pleural space infection. Another surgical expiration at this point in time may not add to his care. Case was discussed with his daughter on the phone. Prognosis poor baseline above-mentioned comorbidities.
[2020-12-31] MEDS: VANCOMYCIN 750 MG in SODIUM CHLORIDE 0.9% 250 ML IVPB SCH ×2 (12:41→21:21)
[2020-12-31 12:53] LABS: Basophils % (A) 0 %; Eosinophils # (A) 0.2 k/uL (0-0.7); Eosinophils % (A) 1 %; HGB 10.2 gm/dL (13.0-17.5); Hypochromasia Slight; Lymphocytes # (A) 1.4 k/uL (1.0-4.8); Lymphocytes % (A) 7 %; MCH 27.5 pg (25.0-35.0); MCHC 30.8 g/dL (31.0-37.0); MCV 89.3 fL (80.0-100.0); Mean Platelet Volume 8.3; Monocytes # (A) 1.3 k/uL (0-1.0); Monocytes % (A) 7 %; Neutrophils # (A) 16.4 k/uL (1.3-7.7); Neutrophils % (A) 84 %; Platelet Count 773 k/uL (150-450); RDW 13.7 % (11.5-15.5); WBC 19.5 k/uL (3.8-10.6)
[2020-12-31 13:13] VITALS: BMI 16.2
[2020-12-31 13:15] LABS: ALT 8 U/L (4-49); AST 20 U/L (17-59); African American GFR (CKD) >90 (>60 ml/min/1.73 sqM); Albumin 2.7 g/dL (3.5-5.0); Albumin/Globulin Ratio 0.8; Alkaline Phosphatase 78 U/L (38-126); Blood Urea Nitrogen 9 mg/dL (9-20); Calcium 8.1 mg/dL (8.4-10.2); Chloride 84 mmol/L (98-107); Globulin 3.2 g/dL; Glucose 119 mg/dL (74-99); Non-African American GFR(CKD) >90 (>60 ml/min/1.73 sqM); Potassium 3.3 mmol/L (3.5-5.1); Sodium 132 mmol/L (137-145); Total Bilirubin 0.4 mg/dL (0.2-1.3); Total Protein 5.9 g/dL (6.3-8.2)
[2020-12-31 13:21] LABS: Anion Gap 10 mmol/L; Carbon Dioxide 38 mmol/L (22-30)
--- NOTE | 2020-12-31 13:22 | XR ---
EXAMINATION TYPE: XR wrist complete RT DATE OF EXAM: 12/31/2020 CLINICAL HISTORY: Pain. Old injury. TECHNIQUE: Frontal, lateral and oblique images of the right wrist are obtained. Fourth scaphoid view was performed COMPARISON: Prior right wrist x-ray August 19, 2013 FINDINGS: There is no new acute fracture/dislocation evident in the right wrist. Old healed fracture distal metaphysis in the radius redemonstrated. The carpal joint spaces fairly well maintained. Dors al surface peripheral catheter noted. IMPRESSION: There is no new acute fracture or dislocation in the right wrist.
--- NOTE | 2020-12-31 13:32 | P.HPIM ---
History of Present Illness H&P Date: 12/31/20 Venkata Winters, is a 60-year-old male who presented to [facility] emergency room with a chief complaint of chest discomfort and shortness of breath He was evaluated in the emergency room vital examination on presentation revealed a temperature of 97.9 pulse 96 respiration 18 blood pressure 100/53 pulse ox 98% on 4 L nasal cannula Laboratory data revealed a white blood count of 20.7 hemoglobin 10.3 platelet count 759 sodium 132 potassium 3.7 BUN 14 creatinine 0.4 CO2 43 coronavirus PCR was negative Testing in the emergency room revealed chest x-ray done in the emergency room revealed bullous pulmonary emphysema, left chest tube in good position, fluid level at the left lung apex with a cavity that measured approximately 7 cm, there was also new patchy infiltrates in the left lower lobe, and blunting of the costophrenic angle. Patient was admitted to medical floor for further evaluation and treatment Past medical history is significant for previous admission in October of this year with spontaneous pneumothorax at that time a thoravent was placed. Patient also has a known history of COPD, benign prostatic hypertrophy, depression and prolonged history of tobacco use. Past Medical History Past Medical History: COPD, Pneumonia History of Any Multi-Drug Resistant Organisms: None Reported Past Surgical History: No Surgical Hx Reported Additional Past Surgical History / Comment(s): lobe wedge resection left lung Past Anesthesia/Blood Transfusion Reactions: No Reported Reaction Past Psychological History: No Psychological Hx Reported Smoking Status: Former smoker Past Alcohol Use History: None Reported Past Drug Use History: None Reported Medications and Allergies Home Medications Medication Instructions Recorded Confirmed Type Aspirin EC [Ecotrin Low Dose] 81 mg PO DAILY 11/08/20 12/30/20 History Ascorbic Acid [Vitamin C] 500 mg PO DAILY 12/30/20 12/30/20 History Cephalexin [Keflex] 500 mg PO DIRECTED 12/30/20 12/30/20 History Enoxaparin [Lovenox] 40 mg SQ DIRECTED 12/30/20 12/30/20 History Ensure Clear 1 can PO TID 12/30/20 12/30/20 History Famotidine [Pepcid] 20 mg PO DIRECTED 12/30/20 12/30/20 History Gabapentin 300 mg PO DIRECTED 12/30/20 12/30/20 History HYDROcodone/APAP 7.5-325MG [[place] 1 tab PO DIRECTED 12/30/20 12/30/20 History 7.5-325] Lidocaine 5% Patch [Lidoderm] 1 patch TRANSDERM DIRECTED 12/30/20 12/30/20 Hi story Magic Cup 1 dose PO DAILY 12/30/20 12/30/20 History Magnesium Gluconate [Magonate] 500 mg PO BID 12/30/20 12/30/20 History Methocarbamol [Robaxin-750] 750 mg PO DIRECTED 12/30/20 12/30/20 History Midodrine HCl [ProAmatine] 10 mg PO DIRECTED 12/30/20 12/30/20 History Multivitamins, Thera [Multivitamin 1 tab PO DAILY 12/30/20 12/30/20 History (formulary)] Sertraline HCl [Zoloft] 25 mg PO DIRECTED 12/30/20 12/30/20 History Tamsulosin HCl [Flomax] 0.4 mg PO DIRECTED 12/30/20 12/30/20 History metroNIDAZOLE [Flagyl] 500 mg PO DIRECTED 12/30/20 12/30/20 History polyethylene glycoL 3350 [Miralax] 17 gm PO DAILY 12/30/20 12/30/20 History Allergies Allergy/AdvReac Type Severity Reaction Status Date / Time No Known Allergies Allergy Verified 12/30/20 18:41 Physical Exam Vitals: Vital Signs Temp Pulse Pulse Resp BP BP Pulse Ox 12/31/20 08:39 98.4 F 95 19 116/63 95 12/31/20 07:15 18 12/31/20 02:00 98.0 F 91 18 118/69 98 12/30/20 22:30 98.2 F 66 19 113/56 94 L 12/30/20 21:31 75 17 94/58 97 12/30/20 18:27 102 H 18 108/57 99 12/30/20 17:22 97.9 F 96 111 H 100/53 98 Intake and Output 12/30/20 12/31/20 12/31/20 22:59 06:59 14:59 Other: # Voids 1 Weight 49.895 kg In general patient is alert and oriented x 3 in no distress HEENT head normocephalic and atraumatic Neck is supple no JVD no goiter no lymphadenopathy no carotid bruit Chest examination is clear to auscultation no crackles no wheezing Cardiac exam reveals regular heart sounds S1 and S2 no gallops no murmurs Abdomen is soft nontender no organomegaly with normal bowel sounds Extremity exam reveals no edema no cyanosis or clubbing Neurological examination reveals no gross focal deficits Results CBC & Chem 7: 12/31/20 12:35 12/31/20 12:35 Labs: Abnormal Lab Results - Last 24 Hours (Table) 12/30/20 12/30/20 12/30/20 Range/Units 18:21 18:21 18:21 WBC 20.7 H (3.8-10.6) k/uL RBC 3.71 L (4.30-5.90) m/uL Hgb 10.3 L D (13.0-17.5) gm/dL Hct 32.5 L (39.0-53.0) % Plt Count 759 H D (150-450) k/uL Neutrophils # 18.4 H (1.3-7.7) k/uL Lymphocytes # 0.8 L (1.0-4.8) k/uL Monocytes # 1.2 H (0-1.0) k/uL PT 13.3 H (9.0-12.0) sec INR 1.3 H (<1.2) Sodium 132 L (137-145) mmol/L Chloride 80 L (98-107) mmol/L Carbon Dioxide 43 H* (22-30) mmol/L Creatinine 0.40 L (0.66-1.25) mg/dL Glucose 146 H (74-99) mg/dL Total Protein 6.1 L (6.3-8.2) g/dL Albumin 2.8 L (3.5-5.0) g/dL Thrombosis Risk Factor Assmnt - Choose All That Apply Each Factor Represents 1 point: Abnormal pulmonary function (COPD) Each Risk Factor Represents 2 Points: Age 61-74 years Other congenital or acquired thrombophilia - If yes, enter type in comment: No Thrombosis Risk Factor Assessment Total Risk Factor Score: 3 Thrombosis Risk Factor Assessment Level: Moderate Risk Assessment and Plan Plan: Left sided pneumothorax, with to chest tube placement over the last 2 months, and pleurodesis at [facility] Severe bullous emphysema Acute hypercapnic respiratory failure Leukocytosis, cannot rule out empyema and sepsis, blood culture pending, patient is maintained on IV antibiotics, Zosyn and vancomycin infectious disease consultation requested Underlying history of bullos emphysema with a previous history of spontaneous pneumothorax Underlying history of COPD Cachexia with severe weight loss Underlying history of benign prostatic hypertrophy Underlying history continued tobacco use, patient counseled in length in regards to smoking cessation At this time patient is admitted to medical floor Pulmonary consultation, thoracic surgery consultation, and infectious disease consultation requested Patient started on IV antibiotics Chest tube in place and draining Will follow closely Prognosis is guarded
[2020-12-31] MEDS: ENOXAPARIN 40 MG/0.4 ML SYRINGE SQ SCH (14:03)
--- NOTE | 2020-12-31 14:07 | P.GSCN ---
History of Present Illness Consult date: 12/31/20 Reason for Consult: Chest tube management Requesting physician: Favian Rivera History of present illness: This is a 60-year-old gentleman who follows on an outpatient basis with Hammad Abad nurse practitioner for his primary care service and Dr. TROY Mcadams for his pulmonology care. He is a past medical history significant for COPD with chronic emphysematous changes and a remote history of tobacco dependence as he quit smoking 2 years ago. In October 2020 the patient had a spontaneous left- sided pneumothorax with a left-sided Thoravent place with successful expansion of his left lung. Subsequently the Thoravent was removed and the patient was discharged home. 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 TROY Mcadams the patient was found to have a recurrent left-sided pneumothorax and was subsequently admit david to [facility] for further evaluation and treatment. The patient reports he was then transferred to a surgeon at [facility] where he was seen by thoracic surgery and due to his persistent left-sided pneumothorax and persistent air leak he underwent a thoracoscopic wedge r esection with pleurodesis. The surgical reports are unavailable at this time. The patient also reports during the hospitalization he did have 2 chest tubes placed. From [facility] he was then transferred to [facility] for rehab with 1 [address] remaining in place. According to the patient while at the rehab facility he went from 120 pounds to about 105 pounds over a course of a couple of weeks and was subsequently picked up by his daughter and brought here to [facility] for further treatment and evaluation. The patient denies any recent fever, chills, nausea, vomiting, palpitations, hematemesis, hemoptysis, constipation, diarrhea, chest pain or syncope. The patient does report though to having shortness of breath. A chest x-ray was completed in the emergency department which showed bullous pulmonary emphysema, left chest tube in good position, a fluid level at the left lung apex with a cavity that measures approximately 7 cm, and possible empyema. For further evaluation a computed tomography scan of his chest with contrast was completed which showed bullous pulmonary emphysema, a large cavity at the left lung apex, a left pleural effusion, course infiltrate and atelectasis at his left lung base, and course density to his left upper lobe consistent with scarring and atelectasis. The patient does remain to have a left-sided chest tube in good position, no air leak is present. It is draining some purulent colored drainage. His initial laboratory results showed a WBC count 20.7, hemoglobin 10.3, platelets 759, INR 1.3, PT 13.3, PTT 28.1, sodium 132, potassium 3.7, chloride 80, CO2 43, BUN 14, creatinine 0.40, glucose 146, plasma lactic acid 1.5 and troponin less than 0.012. A COVID 19 test was also completed which showed not detected. Due to the patient's presenting symptoms, the patient's chest tube remaining in place and findings on the above-mentioned studies a consult was placed to Dr. Vitor Nagy from cardiac surgery for further evaluation and treatment recommendations. Review of Systems A 14 point review of systems was completed was negative except as mentioned in the HPI. Past Medical History Past Medical History: COPD, Pneumonia Additional Past Medical History / Comment(s): Pneumothorax, History of Any Multi-Drug Resistant Organisms: None Reported Past Surgical History: No Surgical Hx Reported Additional Past Surgical History / Comment(s): lobe wedge resection left lung Past Anesthesia/Blood Transfusion Reactions: No Reported Reaction Past Psychological History: No Psychological Hx Reported Smoking Status: Former smoker (Quit smoking 2 years ago) Past Alcohol Use History: None Reported Past Drug Use History: None Reported Medications and Allergies Home Medications Medication Instructions Recorded Confirmed Type Aspirin EC [Ecotrin Low Dose] 81 mg PO DAILY 11/08/20 12/30/20 History Ascorbic Acid [Vitamin C] 500 mg PO DAILY 12/30/20 12/30/20 History Cephalexin [Keflex] 500 mg PO DIRECTED 12/30/20 12/30/20 History Enoxaparin [Lovenox] 40 mg SQ DIRECTED 12/30/20 12/30/20 History Ensure Clear 1 can PO TID 12/30/20 12/30/20 History Famotidine [Pepcid] 20 mg PO DIRECTED 12/30/20 12/30/20 History Gabapentin 300 mg PO DIRECTED 12/30/20 12/30/20 History HYDROcodone/APAP 7.5-325MG [[place] 1 tab PO DIRECTED 12/30/20 12/30/20 History 7.5-325] Lidocaine 5% Patch [Lidoderm] 1 patch TRANSDERM DIRECTED 12/30/20 12/30/20 History Magic Cup 1 dose PO DAILY 12/30/20 12/30/20 History Magnesium Gluconate [Magonate] 500 mg PO BID 12/30/20 12/30/20 History Methocarbamol [Robaxin-750] 750 mg PO DIRECTED 12/30/20 12/30/20 History Midodrine HCl [ProAmatine] 10 mg PO DIRECTED 12/30/20 12/30/20 History Multivitamins, Thera [Multivitamin 1 tab PO DAILY 12/30/20 12/30/20 History (formulary)] Sertraline HCl [Zoloft] 25 mg PO DIRECTED 12/30/20 12/30/20 History Tamsulosin HCl [Flomax] 0.4 mg PO DIRECTED 12/30/20 12/30/20 History metroNIDAZOLE [Flagyl] 500 mg PO DIRECTED 12/30/20 12/30/20 History polyethylene glycoL 3350 [Miralax] 17 gm PO DAILY 12/30/20 12/30/20 History Allergies Allergy/AdvReac Type Severity Reaction Status Date / Time No Known Allergies Allergy Verified 12/30/20 18:41 Surgical - Exam Vital Signs Temp Pulse Resp BP Pulse Ox 97.9 F 96 111 H 100/53 98 12/30/20 17:22 12/30/20 17:22 12/30/20 17:22 12/30/20 17:22 12/30/20 17:22 - General No acute distress. no distress, no pain, cachectic (BMI 16.2 kg/m), chronically ill - Eyes PERRL, normal ocular movement, no pale, no icteric - ENT normal pinna, normal nares, normal mucosa, no hearing loss, no congestion - Neck Neck is supple, no lymphadenopathy. no masses, no bruits, trachea midline, no venous distension - Respiratory Lung sounds diminished to his bilateral bases. Respirations are symmetrical and nonlabored. No wheezes, rhonchi or crackles. Left sided pleural chest tube in place connected to low continuous wall suction -20 cm H2O. No air leak is present. - Cardiovascular Regular rhythm and rate. S1 and S2 present, negative for S3, gallop or murmur. No edema present. - Abdomen Abdomen is soft, nontender and nondistended. Active bowel sounds present all 4 abdominal quadrants. No guarding or rigidity. No organomegaly appreciated. - Integumentary Skin is warm and dry. No clubbing or cyanosis is present. Dressing is clean, dry and intact to his left chest tube insertion site. Old chest tube insertion site with Steri-Strips in place. No drainage or redness present. no rash, no growths, no abnormal pigmentation - Neurologic Cranial nerves II through XII intact. No focal deficits. - Musculoskeletal Generalized weakness. Bilateral upper and lower extremity strength equal bilateral. - Psychiatric oriented to time, oriented to person, oriented to place, speech is normal, memory intact Results - Labs 12/31/20 12:35 12/31/20 12:35 Abnormal Lab Results - Last 24 Hours (Table) 12/30/20 12/30/20 12/30/20 Range/Units 18:21 18:21 18:21 WBC 20.7 H (3.8-10.6) k/uL RBC 3.71 L (4.30-5.90) m/uL Hgb 10.3 L D (13.0-17.5) gm/dL Hct 32.5 L (39.0-53.0) % MCHC (31.0-37.0) g/dL Plt Count 759 H D (150-450) k/uL Neutrophils # 18.4 H (1.3-7.7) k/uL Lymphocytes # 0.8 L (1.0-4.8) k/uL Monocytes # 1.2 H (0-1.0) k/uL PT 13.3 H (9.0-12.0) sec INR 1.3 H (<1.2) Sodium 132 L (137-145) mmol/L Potassium (3.5-5.1) mmol/L Chloride 80 L (98-107) mmol/L Carbon Dioxide 43 H* (22-30) mmol/L Creatinine 0.40 L (0.66-1.25) mg/dL Glucose 146 H (74-99) mg/dL Calcium (8.4-10.2) mg/dL Total Protein 6.1 L (6.3-8.2) g/dL Albumin 2.8 L (3.5-5.0) g/dL 12/31/20 12/31/20 Range/Units 12:35 12:35 WBC 19.5 H (3.8-10.6) k/uL RBC 3.70 L (4.30-5.90) m/uL Hgb 10.2 L (13.0-17.5) gm/dL Hct 33.0 L (39.0-53.0) % MCHC 30.8 L (31.0-37.0) g/dL Plt Count 773 H (150-450) k/uL Neutrophils # 16.4 H (1.3-7.7) k/uL Lymphocytes # (1.0-4.8) k/uL Monocytes # 1.3 H (0-1.0) k/uL PT (9.0-12.0) sec INR (<1.2) Sodium 132 L (137-145) mmol/L Potassium 3.3 L (3.5-5.1) mmol/L Chloride 84 L (98-107) mmol/L Carbon Dioxide 38 H (22-30) mmol/L Creatinine 0.46 L (0.66-1.25) mg/dL Glucose 119 H (74-99) mg/dL Calcium 8.1 L (8.4-10.2) mg/dL Total Protein 5.9 L (6.3-8.2) g/dL Albumin 2.7 L (3.5-5.0) g/dL Diabetes panel 12/30/20 12/31/20 Range/Units 18:21 12:35 Sodium 132 L 132 L (137-145) mmol/L Potassium 3.7 3.3 L (3.5-5.1) mmol/L Chloride 80 L 84 L (98-107) mmol/L Carbon Dioxide 43 H* 38 H (22-30) mmol/L BUN 14 9 (9-20) mg/dL Creatinine 0.40 L 0.46 L (0.66-1.25) mg/dL Glucose 146 H 119 H (74-99) mg/dL Calcium 8.4 8.1 L (8.4-10.2) mg/dL AST 21 20 (17-59) U/L ALT 9 8 (4-49) U/L Alkaline Phosphatase 85 78 (38-126) U/L Total Protein 6.1 L 5.9 L (6.3-8.2) g/dL Albumin 2.8 L 2.7 L (3.5-5.0) g/dL Calcium panel 12/30/20 12/31/20 Range/Units 18:21 12:35 Calcium 8.4 8.1 L (8.4-10.2) mg/dL Albumin 2.8 L 2.7 L (3.5-5.0) g/dL Pituitary panel 12/30/20 12/31/20 Range/Units 18:21 12:35 Sodium 132 L 132 L (137-145) mmol/L Potassium 3.7 3.3 L (3.5-5.1) mmol/L Chloride 80 L 84 L (98-107) mmol/L Carbon Dioxide 43 H* 38 H (22-30) mmol/L BUN 14 9 (9-20) mg/dL Creatinine 0.40 L 0.46 L (0.66-1.25) mg/dL Glucose 146 H 119 H (74-99) mg/dL Calcium 8.4 8.1 L (8.4-10.2) mg/dL Adrenal panel 12/30/20 12/31/20 Range/Units 18:21 12:35 Sodium 132 L 132 L (137-145) mmol/L Potassium 3.7 3.3 L (3.5-5.1) mmol/L Chloride 80 L 84 L (98-107) mmol/L Carbon Dioxide 43 H* 38 H (22-30) mmol/L BUN 14 9 (9-20) mg/dL Creatinine 0.40 L 0.46 L (0.66-1.25) mg/dL Glucose 146 H 119 H (74-99) mg/dL Calcium 8.4 8.1 L (8.4-10.2) mg/dL Total Bilirubin 0.5 0.4 (0.2-1.3) mg/dL AST 21 20 (17-59) U/L ALT 9 8 (4-49) U/L Alkaline Phosphatase 85 78 (38-126) U/L Total Protein 6.1 L 5.9 L (6.3-8.2) g/dL Albumin 2.8 L 2.7 L (3.5-5.0) g/dL - Imaging Chest x-ray: report reviewed, image reviewed CT scan - chest: report reviewed, image reviewed Assessment and Plan Assessment: 1. Left-sided pneumothorax with chest tube in place, status post left-sided thoracoscopic wedge resection and pleurodesis at [facility] 2. Left upper lobe loculated pneumothorax, left-sided chest tube in place 3. Severe bullous emphysema 4. Leukocytosis secondary to above 5. Generalized debility with a BMI of 16.2 with recent weight loss 6. Remote history of smoking dependence, quit 2 years ago Plan: The patient was seen and examined at his bedside on the fourth floor medical surgical unit by Dr. Vitor Nagy from cardiothoracic surgery. His chart and diagnostics reviewed. No surgical intervention is warranted at this time. Keep left pleural chest tube in place to low continuous wall suction -20 cm H2O. Continue to record accurate I's and O's. Encourage nutritional support. Increase activity as tolerated. Encourage use of incentive spirometry 10 times every hour while awake. Continue antibiotic coverage managed by pulmonary medicine. Medical management of her comorbidities per primary care service. More recommendations to follow based on patient's clinical course. Thank you Dr. Rivera for this consult and we look forward to working with you in the care of this patient. Time with Patient: Greater than 30
[2020-12-31] MEDS ORDERED: AZITHROMYCIN 500 MG in SODIUM CHLORIDE 0.9% 250 ML IVPB SCH (21:00)
[2021-01-01] MEDS: PIPERACILLIN-TAZOBACTAM 3.375 GM in SODIUM CHLORIDE 0.9% 100 ML IVPB SCH (00:38)
[2021-01-01] MEDS: MORPHINE SULFATE 4 MG/ML SYRINGE IVP PRN ×5 (00:38→22:01)
--- NOTE | 2021-01-01 01:02 | P.CONS ---
History of Present Illness - Reason for Consult Consult date: 12/31/20 empyema Requesting physician: Penelope Orta - Chief Complaint shortness of breath and chest pain x weeks - History of Present Illness History of present illness : Patient is a 60-year male with a past medical history sniffing for emphysema in this patient who did have a recurrent left spontaneous pneumothorax with persistent air leak for with the patient was treated at this facility and subsequently was treated at [facility] in [place] in this patient who is status post left upper lobe pulmonary dissection mechanical pleurodesis lysis of adhesion and a chest tube placement culture positive for MSSA and the patient was initially treated with cefepime subsequently switched to the Unasyn after stabilization the patient was sent to [facility] for further rehabilitation patient now presented to [facility] ER last evening for evaluation of chest discomfort and shortness of breath, in the emergency room the patient did have a CT of the chest done which shows embolus emphysema and large cavity in the left apex with a fluid within the pelvis pr obably infection patient did have a chest tube draining purulent material patient on presentation to the hospital was afebrile patient did have white count of 20,000 with a left shift BUN/creatinine has been normal kumar PCR was negative blood cultures have been obtained which are currently pending patient was started on Zosyn and vancomycin infectious disease was consulted for further management of antibiotic therapy, patient currently main symptom remains to be shortness of breath unable to take a deep breath patient did have a cough which is moderate intensity with very minimal sputum production no hemoptysis chest pain on the left side around his chest tube more of a dull aching to sharp 3-4 out of 10 no radiation Review of system: CONSTITUTIONAL: Positive for weakness however denies high-grade fever. EYES: No complaint. ENT: No complaint. RESPIRATORY: As per history of present illness. CARDIOVASCULAR: No complaint. GENITOURINARY: No complaint. GASTROINTESTINAL: No complaint. MUSCULOSKELETAL: No complaint. INTEGUMENTARY: No complaint. PSYCHOLOGIC: No complaint. ENDOCRINE: No complaint. NEUROLOGIC: No complaint. Past medical history : Reviewed, documented below Past surgical history : Reviewed, documented below Social history: Reviewed, documented below Medications: Reviewed, as documented below EXAMINATION: Vital sigans= Reviewed and documented below GENERAL DESCRIPTION: Middle-aged male up in bed, no distress. No tachypnea or accessory muscle of respiration use. HEENT: Shows Pallor , no scleral icterus. Oral mucous membrane is dry. NECK: Trachea central, no thyromegaly. LUNGS: Unlabored breathing. Decreased breath sound at the bases with a chest tu be on the left side. . HEART: S1, S2, regular rate and rhythm. ABDOMEN: Soft, no tenderness , guarding or rigidity EXTREMITIES: No edema of feet. SKIN: No rash, no masses palpable. NEUROLOGICAL: The patient is awake, alert, oriented x3, mood and affect normal. LABS AND RADIOLOGY: Reviewed results see below Assessment : 1-patient presented to hospital with increasing shortness of breath chest pain and cough in this patient who did have a complicated history of spontaneous pneumothorax with persistent air leak for which the patient did have a VATS procedure with pleurodesis and chest tube placement at [facility] culture positive for MSSA in this patient was currently getting rehab at [facility] from which the patient has signed himself out and presented to this facility now with evidence of elevated white count and abnormal CT and purulent fluid in the chest tube concerning for empyema Plan: 1-vancomycin pharmacy to dose with a target trough of 15 while watching kidney function and Vanco trough closely. 2-discontinue Zosyn start the patient cefepime to decrease risk of nephrot oxicity 3-await CT surgery evaluation for possible drainage of this empyema and deep culture We will follow on clinical condition and cultures to further adjust medication if needed Thank you for this consultation we will follow the patient along with you Past Medical History Past Medical History: COPD, Pneumonia Additional Past Medical History / Comment(s): Pneumothorax, History of Any Multi-Drug Resistant Organisms: None Reported Past Surgical History: No Surgical Hx Reported Additional Past Surgical History / Comment(s): lobe wedge resection left lung Past Anesthesia/Blood Transfusion Reactions: No Reported Reaction Past Psychological History: No Psychological Hx Reported Smoking Status: Former smoker Past Alcohol Use History: None Reported Past Drug Use History: None Reported Medications and Allergies Home Medications Medication Instructions Recorded Confirmed Type Aspirin EC [Ecotrin Low Dose] 81 mg PO DAILY 11/08/20 12/30/20 History Ascorbic Acid [Vitamin C] 500 mg PO DAILY 12/30/20 12/30/20 History Cephalexin [Keflex] 500 mg PO DIRECTED 12/30/20 12/30/20 History Enoxaparin [Lovenox] 40 mg SQ DIRECTED 12/30/20 12/30/20 History Ensure Clear 1 can PO TID 12/30/20 12/30/20 History Famotidine [Pepcid] 20 mg PO DIRECTED 12/30/20 12/30/20 History Gabapentin 300 mg PO DIRECTED 12/30/20 12/30/20 History HYDROcodone/APAP 7.5-325MG [[place] 1 tab PO DIRECTED 12/30/20 12/30/20 History 7.5-325] Lidocaine 5% Patch [Lidoderm] 1 patch TRANSDERM DIRECTED 12/30/20 12/30/20 History Magic Cup 1 dose PO DAILY 12/30/20 12/30/20 History Magnesium Gluconate [Magonate] 500 mg PO BID 12/30/20 12/30/20 History Methocarbamol [Robaxin-750] 750 mg PO DIRECTED 12/30/20 12/30/20 History Midodrine HCl [ProAmatine] 10 mg PO DIRECTED 12/30/20 12/30/20 History Multivitamins, Thera [Multivitamin 1 tab PO DAILY 12/30/20 12/30/20 History (formulary)] Sertraline HCl [Zoloft] 25 mg PO DIRECTED 12/30/20 12/30/20 History Tamsulosin HCl [Flomax] 0.4 mg PO DIRECTED 12/30/20 12/30/20 History metroNIDAZOLE [Flagyl] 500 mg PO DIRECTED 12/30/20 12/30/20 History polyethylene glycoL 3350 [Miralax] 17 gm PO DAILY 12/30/20 12/30/20 History Allergies Allergy/AdvReac Type Severity Reaction Status Date / Time No Known Allergies Allergy Verified 12/30/20 18:41 Physical Exam Vitals: Vital Signs Temp Pulse Pulse Resp BP BP Pulse Ox 12/31/20 08:39 98.4 F 95 19 116/63 95 12/31/20 07:15 18 12/31/20 02:00 98.0 F 91 18 118/69 98 12/30/20 22:30 98.2 F 66 19 113/56 94 L 12/30/20 21:31 75 17 94/58 97 12/30/20 18:27 102 H 18 108/57 99 12/30/20 17:22 97.9 F 96 111 H 100/53 98 Intake and Output 12/30/20 12/31/20 12/31/20 22:59 06:59 14:59 Other: # Voids 1 Weight 49.895 kg Results CBC & Chem 7: 12/31/20 12:35 12/31/20 12:35 Labs: Abnormal Lab Results - Last 24 Hours (Table) 12/30/20 12/30/20 12/30/20 Range/Units 18:21 18:21 18:21 WBC 20.7 H (3.8-10.6) k/uL RBC 3.71 L (4.30-5.90) m/uL Hgb 10.3 L D (13.0-17.5) gm/dL Hct 32.5 L (39.0-53.0) % MCHC (31.0-37.0) g/dL Plt Count 759 H D (150-450) k/uL Neutrophils # 18.4 H (1.3-7.7) k/uL Lymphocytes # 0.8 L (1.0-4.8) k/uL Monocytes # 1.2 H (0-1.0) k/uL PT 13.3 H (9.0-12.0) sec INR 1.3 H (<1.2) Sodium 132 L (137-145) mmol/L Chloride 80 L (98-107) mmol/L Carbon Dioxide 43 H* (22-30) mmol/L Creatinine 0.40 L (0.66-1.25) mg/dL Glucose 146 H (74-99) mg/dL Total Protein 6.1 L (6.3-8.2) g/dL Albumin 2.8 L (3.5-5.0) g/dL 12/31/20 Range/Units 12:35 WBC 19.5 H (3.8-10.6) k/uL RBC 3.70 L (4.30-5.90) m/uL Hgb 10.2 L (13.0-17.5) gm/dL Hct 33.0 L (39.0-53.0) % MCHC 30.8 L (31.0-37.0) g/dL Plt Count 773 H (150-450) k/uL Neutrophils # 16.4 H (1.3-7.7) k/uL Lymphocytes # (1.0-4.8) k/uL Monocytes # 1.3 H (0-1.0) k/uL PT (9.0-12.0) sec INR (<1.2) Sodium (137-145) mmol/L Chloride (98-107) mmol/L Carbon Dioxide (22-30) mmol/L Creatinine (0.66-1.25) mg/dL Glucose (74-99) mg/dL Total Protein (6.3-8.2) g/dL Albumin (3.5-5.0) g/dL
[2021-01-01] MEDS: VANCOMYCIN 750 MG in SODIUM CHLORIDE 0.9% 250 ML IVPB SCH ×3 (05:49→21:52)
--- NOTE | 2021-01-01 07:06 | XR ---
EXAMINATION TYPE: XR chest 1V portable DATE OF EXAM: 01/01/2021 CLINICAL HISTORY: Left-sided chest tube and empyema. TECHNIQUE: 2 AP portable upright views of the chest are obtained. COMPARISON: Chest x-ray from one day earlier. CT chest 2 days ago. FINDINGS: Moderate to advanced underlying emphysematous change redemonstrated. Persistent left apical chest tube terminating in the left lung apex at level of focal pleural cavity with air-fluid level. Persistent small basilar left pleural effusion and associated left basilar atelectasis and/or infiltr ate. Left-sided volume loss redemonstrated. Right lung remains clear. Cardiac silhouette size stable and within normal limits. Upper lung parenchymal scarring redemonstrated. Osseous structures remain d emineralized. IMPRESSION: Chronic changes width left apical pleural cavity with dependent fluid and internal drai nage catheter. No new acute infiltrate. No significant change from one day earlier.
[2021-01-01] MEDS: polyethylene glycoL 3350 17 GM POWD.PACK PO SCH (07:11)
[2021-01-01 07:12] LABS: ALT 10 U/L (4-49); AST 26 U/L (17-59); African American GFR (CKD) >90 (>60 ml/min/1.73 sqM); Albumin 2.9 g/dL (3.5-5.0); Albumin/Globulin Ratio 0.8; Alkaline Phosphatase 83 U/L (38-126); Anion Gap 7 mmol/L; Blood Urea Nitrogen 5 mg/dL (9-20); Calcium 8.6 mg/dL (8.4-10.2); Carbon Dioxide 39 mmol/L (22-30); Chloride 88 mmol/L (98-107); Globulin 3.5 g/dL; Glucose 102 mg/dL (74-99); Non-African American GFR(CKD) >90 (>60 ml/min/1.73 sqM); Potassium 4.1 mmol/L (3.5-5.1); Sodium 134 mmol/L (137-145); Total Bilirubin 0.4 mg/dL (0.2-1.3); Total Protein 6.4 g/dL (6.3-8.2)
[2021-01-01] MEDS: ENOXAPARIN 40 MG/0.4 ML SYRINGE SQ SCH (07:12)
[2021-01-01] MEDS: ASCORBIC ACID 500 MG TAB PO SCH (07:12)
[2021-01-01] MEDS: MULTIVITAMINS, THERA 1 EACH TAB PO SCH (07:13)
[2021-01-01] MEDS: CEFEPIME 2 GM in SODIUM CHLORIDE 0.9% 100 ML IVPB SCH ×2 (07:13→15:52)
[2021-01-01] MEDS: ASPIRIN 81 MG PO SCH (07:13)
[2021-01-01] MEDS: SODIUM CHLORIDE 0.9% 1,000 ML IV SCH ×2 (07:15→11:22)
[2021-01-01] MEDS: IPRATROPIUM-ALBUTEROL 3 ML NEB INHALATION SCH ×4 (07:55→19:04)
--- NOTE | 2021-01-01 10:01 | P.PN ---
Subjective Progress Note Date: 01/01/21 Venkata Winters, is a 60-year-old male who presented to [facility] emergency room with a chief complaint of chest discomfort and shortness of breath He was evaluated in the emergency room vital examination on presentation revealed a temperature of 97.9 pulse 96 respiration 18 blood pressure 100/53 pulse ox 98% on 4 L nasal cannula Laboratory data revealed a white blood count of 20.7 hemoglobin 10.3 platelet count 759 sodium 132 potassium 3.7 BUN 14 creatinine 0.4 CO2 43 coronavirus PCR was negative Testing in the emergency room revealed chest x-ray done in the emergency room revealed bullous pulmonary emphysema, left chest tube in good position, fluid level at the left lung apex with a cavity that measured approximately 7 cm, there was also new patchy infiltrates in the left lower lobe, and blunting of the costophrenic angle. Patient was admitted to medical floor for further evaluation and treatment Past medical history is significant for previous admission in October of this ye ar with spontaneous pneumothorax at that time a thoravent was placed. Patient also has a known history of COPD, benign prostatic hypertrophy, depression and prolonged history of tobacco use. On 01/01/2021 patient's alert and oriented 3. Patient remains with chest tube. Repeat chest x-ray completed showing chronic changes with left apical pleural cavity with dependent fluid and internal drainage catheter no new acute infiltrate and no significant change from one day earlier. Cardiothoracic, pulmonary and infectious disease services are following. Patient remains on cefepime and vancomycin. Patient reports slight improvement. Patient denies chest pain. Patient denies nausea vomiting or diarrhea. Patient denies any urinary burning or frequency Objective - Vital Signs Vital signs: Vital Signs Temp 98.4 F 01/01/21 06:54 Pulse 83 01/01/21 06:54 Resp 18 01/01/21 07:15 BP 131/71 01/01/21 06:54 Pulse Ox 96 01/01/21 06:54 Intake & Output 12/31/20 01/01/21 01/01/21 18:59 06:59 18:59 Intake Total 1600 Output Total 600 40 Balance -600 1560 Weight 49.895 kg Intake: Intake, IV Titration 1600 Amount Piperacillin-Tazobactam 3 100 .375 gm In Sodium Chloride 0.9% 100 ml @ 25 mls/hr IVPB Q8HR [facility] Rx# :[id number] Sodium Chloride 0.9% 1, 1000 000 ml @ 100 mls/hr IV . Q10H [facility] Rx#:[id number] Vancomycin 750 mg In 500 Sodium Chloride 0.9% 250 ml @ 125 mls/hr IVPB Q8H [facility] Rx#:[id number] Output: Chest Tube Drainage 600 40 Left Lateral Chest 600 40 Other: # Voids 2 - Exam In general patient is alert and oriented x 3 in no distress HEENT head normocephalic and atraumatic Neck is supple no JVD no goiter no lymphadenopathy no carotid bruit Chest examination is clear to auscultation no crackles no wheezing Cardiac exam reveals regular heart sounds S1 and S2 no gallops no murmurs Abdomen is soft nontender no organomegaly with normal bowel sounds Extremity exam reveals no edema no cyanosis or clubbing Neurological examination reveals no gross focal deficits - Labs CBC & Chem 7: 12/31/20 12:35 01/01/21 06:11 Labs: Abnormal Lab Results - Last 24 Hours (Table) 12/31/20 12/31/20 01/01/21 Range/Units 12:35 12:35 06:11 WBC 19.5 H (3.8-10.6) k/uL RBC 3.70 L (4.30-5.90) m/uL Hgb 10.2 L (13.0-17.5) gm/dL Hct 33.0 L (39.0-53.0) % MCHC 30.8 L (31.0-37.0) g/dL Plt Count 773 H (150-450) k/uL Neutrophils # 16.4 H (1.3-7.7) k/uL Monocytes # 1.3 H (0-1.0) k/uL Sodium 132 L 134 L (137-145) mmol/L Potassium 3.3 L (3.5-5.1) mmol/L Chloride 84 L 88 L (98-107) mmol/L Carbon Dioxide 38 H 39 H (22-30) mmol/L BUN 5 L (9-20) mg/dL Creatinine 0.46 L 0.45 L (0.66-1.25) mg/dL Glucose 119 H 102 H (74-99) mg/dL Calcium 8.1 L (8.4-10.2) mg/dL Total Protein 5.9 L (6.3-8.2) g/dL Albumin 2.7 L 2.9 L (3.5-5.0) g/dL Microbiology - Last 24 Hours (Table) 12/31/20 13:50 Body Fluid Culture - Preliminary Pleural Fluid 12/30/20 20:28 Blood Culture - Preliminary Blood No Growth after 24 hours 12/30/20 20:28 Blood Culture - Preliminary Blood No Growth after 24 hours Assessment and Plan Plan: Left sided pneumothorax, with to chest tube placement over the last 2 months, and pleurodesis at [facility] Severe bullous emphysema Acute hypercapnic respiratory failure Leukocytosis, cannot rule out empyema and sepsis, blood culture pending, patient is maintained on IV antibiotics, Zosyn and vancomycin infectious disease consultation requested Underlying history of bullos emphysema with a previous history of spontaneous pneumothorax Underlying history of COPD Cachexia with severe weight loss Underlying history of benign prostatic hypertrophy Underlying history continued tobacco use, patient counseled in length in regards to smoking cessation At this time patient is admitted to medical floor Pulmonary consultation, thoracic surgery consultation, and infectious disease consultation requested Patient started on IV antibiotics Chest tube in place and draining Will follow closely Prognosis is guarded
--- NOTE | 2021-01-01 10:17 | P.PN ---
Subjective Progress Note Date: 01/01/21 Principal diagnosis: He is a past medical history significant for COPD with chronic emphysematous changes and a remote history of tobacco dependence as he quit smoking 2 years ago. In October 2020 the patient had a spontaneous left-sided pneumothorax with a left-sided Thoravent place with successful expansion of his left lung. Subsequently the Thoravent was removed and the patient was discharged home. Upon follow-up with his quick technician Dr. TROY Mcadams the patient was found to have a recurrent left-sided pneumothorax and was subsequently admitted to [facility] for further evaluation and treatment. The patient reports he was then transferred to a surgeon at [facility] where he was seen by thoracic surgery and due to his persistent left-sided pneumothorax and persistent air leak he underwent a thoracoscopic wedge resection with pleurodesis. The surgical reports are unavailable at this time. The patient also reports during the hospitalization he did have 2 chest tubes placed. From [facility] he was then transferred to [facility] for rehab with [address] remaining in place. According to the patient while at the rehab facility he went from 120 pounds to about 105 pounds over a course of a couple of weeks and was subsequently picked up by his daughter and brought here to [facility] for further treatment and evaluation. The patient denies any recent fever, chills, nausea, vomiting, palpitations, hematemesis, hemoptysis, constipation, diarrhea, chest pain or syncope. The patient does report though to having shortness of breath. A chest x-ray was completed in the emergency department which showed bullous pulmonary emphysema, left chest tube in good position, a fluid level at the left lung apex with a cavity that measures approximately 7 cm, and possible empyema. For further marco antonio luation a computed tomography scan of his chest with contrast was completed which showed bullous pulmonary emphysema, a large cavity at the left lung apex, a left pleural effusion, course infiltrate and atelectasis at his left lung base, and course density to his left upper lobe consistent with scarring and atelectasis. The patient was seen in follow-up today 01/01/2021 at his bedside on the fourth floor medical surgical unit. Currently is laying in bed, is awake, alert and oriented 3 and is in no acute apparent distress. Denies any complaints of pain at this time, although is complaining of some episodes of shortness of breath with activity. Despite his complaints of shortness of breath with activity, the patient does report he feels somewhat improved today than yesterday. Left ple ural chest tube remains in place to low continuous wall suction -20 cm H2O. No air leak is present. Draining thin serous drainage with 60 mL output over the last 8 hours. Oxygen saturation are 96% on 1 L nasal cannula. Chest x-ray this morning shows chronic changes with left apical pleural cavity with dependent fluid and internal drainage catheter. The patient remains afebrile the last 24 hours. He remains on cefepime and vancomycin for antibiotic coverage which is managed by infectious disease. Blood culture results show no growth after 24 hours and pleural fluid culture results remain pending. Objective - Vital Signs Vital signs: Vital Signs Temp 98.4 F 01/01/21 06:54 Pulse 83 01/01/21 06:54 Resp 18 01/01/21 07:15 BP 131/71 01/01/21 06:54 Pulse Ox 96 01/01/21 06:54 Intake & Output 12/31/20 01/01/21 01/01/21 18:59 06:59 18:59 Intake Total 1600 Output Total 600 40 Balance -600 1560 Weight 49.895 kg Intake: Intake, IV Titration 1600 Amount Piperacillin-Tazobactam 3 100 .375 gm In Sodium Chloride 0.9% 100 ml @ 25 mls/hr IVPB Q8HR [facility] Rx# :[id number] Sodium Chloride 0.9% 1, 1000 000 ml @ 100 mls/hr IV . Q10H [facility] Rx#:[id number] Vancomycin 750 mg In 500 Sodium Chloride 0.9% 250 ml @ 125 mls/hr IVPB Q8H [facility] Rx#:[id number] Output: Chest Tube Drainage 600 40 Left Lateral Chest 600 40 Other: # Voids 2 - Exam CONSTITUTIONAL: Sitting up in bed on the fourth floor medical surgical unit, appears comfortable, cooperative, no apparent acute distress. Cachectic and frail. HEENT: Neck is supple, no JVD, no lymphadenopathy. RESPIRATORY: Lungs sounds essentially diminished throughout. Respirations are symmetrical and nonlabored. Currently on 2 L nasal cannula with oxygen saturations 96%. Strong cough. CARDIOVASCULAR: Regular rhythm and rate. S1 and S2 present, negative for S3, gallop or murmur. No edema present. GASTROINTESTINAL: Abdomen soft, nontender, nondistended. Active bowel sounds present 4 quadrants. No guarding or rigidity. No organomegaly appreciated. GENITOURINARY: Continues to void. INTEGUMENTARY: Skin is warm and dry with no evidence of clubbing or cyanosis. Left chest incisions clean, dry and approximated. No drainage or redness is present. Dressing clean, dry and intact to his left chest tube insertion site. NEUROLOGIC: Cranial nerves II through XII intact. No focal deficits. MUSKULOSKELETAL: Able to move all extremities, strength equal bilaterally, generalized weakness. PSYCHIATRIC: Alert and oriented to person place and time, appropriate affect, intact judgment and insight. INVASIVE LINES AND TUBES: Left pleural chest tubes present and connected to low continuous wall suction, no air leaks present. Draining thin serous drainage with 60 mL output in the last 8 hours. - Allied health notes Allied health notes reviewed: nursing - Labs CBC & Chem 7: 12/31/20 12:35 01/01/21 06:11 Labs: Abnormal Lab Results - Last 24 Hours (Table) 12/31/20 12/31/20 01/01/21 Range/Units 12:35 12:35 06:11 WBC 19.5 H (3.8-10.6) k/uL RBC 3.70 L (4.30-5.90) m/uL Hgb 10.2 L (13.0-17.5) gm/dL Hct 33.0 L (39.0-53.0) % MCHC 30.8 L (31.0-37.0) g/dL Plt Count 773 H (150-450) k/uL Neutrophils # 16.4 H (1.3-7.7) k/uL Monocytes # 1.3 H (0-1.0) k/uL Sodium 132 L 134 L (137-145) mmol/L Potassium 3.3 L (3.5-5.1) mmol/L Chloride 84 L 88 L (98-107) mmol/L Carbon Dioxide 38 H 39 H (22-30) mmol/L BUN 5 L (9-20) mg/dL Creatinine 0.46 L 0.45 L (0.66-1.25) mg/dL Glucose 119 H 102 H (74-99) mg/dL Calcium 8.1 L (8.4-10.2) mg/dL Total Protein 5.9 L (6.3-8.2) g/dL Albumin 2.7 L 2.9 L (3.5-5.0) g/dL Microbiology - Last 24 Hours (Table) 12/31/20 13:50 Body Fluid Culture - Preliminary Pleural Fluid 12/30/20 20:28 Blood Culture - Preliminary Blood No Growth after 24 hours 12/30/20 20:28 Blood Culture - Preliminary Blood No Growth after 24 hours - Imaging and Cardiology Chest x-ray: report reviewed, image reviewed Assessment and Plan Assessment: 1. Left-sided pneumothorax with chest tube in place, status post left-sided thoracoscopic wedge resection and pleurodesis at [facility] 2. Left upper lobe loculated pneumothorax, left-sided chest tube in place 3. Severe bullous emphysema 4. Leukocytosis secondary to above 5. Generalized debility with a BMI of 16.2 with recent weight loss 6. Remote history of smoking dependence, quit 2 years ago Plan: 1. Continue to follow blood culture and pleural fluid culture results. Preliminary blood culture results show no growth. 2. Encourage incentive spirometry 10 times every hour while awake. Bronchodilators per pulmonology management. 3. Increase activity, ambulate as tolerated. Physical and occupational therapy consulted. 4. Antibiotic management per infectious disease recommendations. Currently on cefepime and vancomycin. 5. Continue to follow daily chest x-rays. 6. Keep left pleural chest tube in place to low continuous wall suction -20 cm H2O. 7. Pain control with current medication regimen 8. More recommendations to follow based on patient's clinical course. Time with Patient: Greater than 30
[2021-01-01 11:58] LABS: Basophils # (A) 0.03 X 10*3/uL (0.00-0.10); Basophils % (A) 0.2 %; Eosinophils # (A) 0.21 X 10*3/uL (0.04-0.35); Eosinophils % (A) 1.3 %; HCT 33.2 % (39.6-50.0); HGB 10.4 g/dL (13.0-17.0); Lymphocytes # (A) 1.27 X 10*3/uL (0.90-5.00); MCH 26.4 pg (27.0-32.0); MCHC 31.3 g/dL (32.0-37.0); MCV 84.3 fL (80.0-97.0); Mean Platelet Volume 10.3 fL (9.5-12.2); Monocytes # (A) 1.44 X 10*3/uL (0.20-1.00); Neutrophils # (A) 12.83 X 10*3/uL (1.80-7.70); Neutrophils % (A) 80.6 %; Platelet Count 935 X 10*3/uL (140-440); RBC 3.94 X 10*6/uL (4.40-5.60); WBC 15.93 X 10*3/uL (4.50-10.00)
--- NOTE | 2021-01-01 13:34 | P.PN ---
Subjective Progress Note Date: 01/01/21 On today's evaluation of 01/01/2021, the patient is resting comfortably in bed. No significant respiratory distress. He is afebrile. He is hemodynamically stable. He remains on 2 L about 2 by nasal cannula with a pulse ox of 96%. He was weaned down to 1 L. Cultures are negative thus far. Note that the pleural fluid was again sent for cultures and the patient was started on a combination of cefepime and vancomycin. No other new issues for now. Chest tubes in a good location. Repeat chest x-ray from today shows the chest tube being in a good location and is attached to a wall suction of 20 cm of water. No evidence of any air leak. Output has been in the order of 60 mL of purulent material over the past 8 hours. He is quite weak and debilitated. His appetite is poor and the patient has been losing weight. I was able to review some of the records from [facility] and the previous pleural fluid that during his lung was consistent with MSSA. The patient has a white cell count of 15.0 which is improved compared to yesterday. Coagulation profile has been within normal limi ts. Renal function stable at creatinine of 0.4. Coronary disease testing is been negative. Sodium level is up to 134. Objective - Vital Signs Vital signs: Vital Signs Temp 98.4 F 01/01/21 06:54 Pulse 83 01/01/21 06:54 Resp 18 01/01/21 07:15 BP 131/71 01/01/21 06:54 Pulse Ox 96 01/01/21 06:54 Intake & Output 12/31/20 01/01/21 01/01/21 18:59 06:59 18:59 Intake Total 1600 Output Total 600 40 Balance -600 1560 Weight 49.895 kg Intake: Intake, IV Titration 1600 Amount Piperacillin-Tazobactam 3 100 .375 gm In Sodium Chloride 0.9% 100 ml @ 25 mls/hr IVPB Q8HR [facility] Rx# :[id number] Sodium Chloride 0.9% 1, 1000 000 ml @ 100 mls/hr IV . Q10H [facility] Rx#:[id number] Vancomycin 750 mg In 500 Sodium Chloride 0.9% 250 ml @ 125 mls/hr IVPB Q8H [facility] Rx#:[id number] Output: Chest Tube Drainage 600 40 Left Lateral Chest 600 40 Other: # Voids 2 - Exam CONSTITUTIONAL: Sitting up in bed on the fourth floor medical surgical unit, appears comfortable, cooperative, no apparent acute distress. Cachectic and frail. HEENT: Neck is supple, no JVD, no lymphadenopathy. RESPIRATORY: Lungs sounds essentially diminished throughout. Respirations are symmetrical and nonlabored. Currently on 2 L nasal cannula with oxygen saturations 96%. Strong cough. CARDIOVASCULAR: Regular rhythm and rate. S1 and S2 present, negative for S3, gallop or murmur. No edema present. GASTROINTESTINAL: Abdomen soft, nontender, nondistended. Active bowel sounds present 4 quadrants. No guarding or rigidity. No organomegaly appreciated. GENITOURINARY: Continues to void. INTEGUMENTARY: Skin is warm and dry with no evidence of clubbing or cyanosis. Left chest incisions clean, dry and approximated. No drainage or redness is present. Dressing clean, dry and intact to his left chest tube insertion site. NEUROLOGIC: Cranial nerves II through XII intact. No focal deficits. MUSKULOSKELETAL: Able to move all extremities, strength equal bilaterally, generalized weakness. PSYCHIATRIC: Alert and oriented to person place and time, appropriate affect, intact judgment and insight. INVASIVE LINES AND TUBES: Left pleural chest tubes present and connected to low continuous wall suction, no air leaks present. Draining thin serous drainage with 60 mL output in the last 8 hours. - Labs CBC & Chem 7: 01/01/21 06:11 01/01/21 06:11 Labs: Abnormal Lab Results - Last 24 Hours (Table) 12/31/20 01/01/21 01/01/21 Range/Units 12:35 06:11 06:11 WBC 15.93 H (4.50-10.00) X 10*3/uL RBC 3.94 L (4.40-5.60) X 10*6/uL Hgb 10.4 L (13.0-17.0) g/dL Hct 33.2 L (39.6-50.0) % MCH 26.4 L (27.0-32.0) pg MCHC 31.3 L (32.0-37.0) g/dL RDW 15.0 H (11.5-14.5) % Plt Count 935 H (140-440) X 10*3/uL Plt Count Comment INCREASED A Immature Gran # 0.15 H (0.00-0.04) X 10*3/uL Neutrophils # 12.83 H (1.80-7.70) X 10*3/uL Monocytes # 1.44 H (0.20-1.00) X 10*3/uL Sodium 132 L 134 L (137-145) mmol/L Potassium 3.3 L (3.5-5.1) mmol/L Chloride 84 L 88 L (98-107) mmol/L Carbon Dioxide 38 H 39 H (22-30) mmol/L BUN 5 L (9-20) mg/dL Creatinine 0.46 L 0.45 L (0.66-1.25) mg/dL Glucose 119 H 102 H (74-99) mg/dL Calcium 8.1 L (8.4-10.2) mg/dL Total Protein 5.9 L (6.3-8.2) g/dL Albumin 2.7 L 2.9 L (3.5-5.0) g/dL Microbiology - Last 24 Hours (Table) 12/31/20 13:50 Body Fluid Culture - Preliminary Pleural Fluid 12/30/20 20:28 Blood Culture - Preliminary Blood No Growth after 24 hours 12/30/20 20:28 Blood Culture - Preliminary Blood No Growth after 24 hours Assessment and Plan Plan: 1 severe bullous emphysema 2 left-sided pneumothorax. , failed chest tube and ultimately the patient underwent a thoracoscopic wedge resection of the lung with pleurodesis. The surgery was done at [facility]. His course was complicated also with the pleural space infection. Based on the records forwarded to us from [facility], the patient had MSSA in the pleural fluid. 3 left upper lobe located pneumothorax/fluid-filled bolus. Noted the patient is post pleurodesis. There is an air-fluid level within the left upper lobe cavity which is probably representation of an underlyinginfection. Chest tube is in a good location. There is no evidence of any air leak. There is purulent material draining in the Pleur-evac. The output has been in the order of 60 mL of purulent material over the past 8 hours. 4 leukocytosis secondary to above, improving 5 secondary erythrocytosis related to pleural space infection 6 debility and weight loss with a body mass index of 16.2 7 history of chronic smoker. The patient quit smoking approximately 2 years ago. Plan Will need all of the records from the other facilities to give details of his treatment Cultures sent from today pleural fluid and would awaiting for the final results. Previous cultures were positive for MSSA from [facility] continue cefepime and vancomycin for now , pending further cultures provide the patient incentive spirometer oxygen to maintain saturation above 90% Unfortunately this the pleural space infection. We'll consult with our thoracic surgeons. However is very reasonable the patient to be considered to go back to his surgeon at [facility] for further input. It is likely the patient will need long-term chest tube drainage and antibiotic treatment in an attempt to clear this pleural space infection. Another surgical exploration at this point in time may not add to his care. The patient is quite debilitated and malnourished and may not be a candidate for another surgical intervention. Dietary advice will be given. Surgical team from our services and hospital have addendum the patient. Case was discussed with his daughter on the phone. Prognosis poor baseline above-mentioned comorbidities.
--- NOTE | 2021-01-01 19:10 | PN ---
PROGRESS NOTE DATE OF SERVICE: 01/01/2021 REASON FOR FOLLOWUP: Empyema. INTERVAL HISTORY: The patient is currently afebrile. He is feeling slightly better. He is breathing comfortably. Denies any chest pain, cough, not bringing up any sputum. No abdominal pain. No diarrhea. PHYSICAL EXAMINATION: Blood pressure 133/64, pulse of 98, temperature 98.1. He is 95% on room air. General description is a middle-aged male lying in bed in no distress. Respiratory system: Unlabored breathing, decreased breath sounds in the bases. No wheeze. Heart S1, S2. Regular rate and rhythm. Abdomen soft, no tenderness. LABS: Hemoglobin is 10.2, white count 15.9. Creatinine 0.45. culture pending. Blood culture so far negative. DIAGNOSTIC IMPRESSION AND PLAN: Patient with left-sided empyema in this patient who is status post wedge resection, pleurodesis, at [facility]. Cultures at that point were positive for MSSA. The patient is currently covered with vancomycin and cefepime while waiting for repeat cultures and monitor clinical course closely. Continue supportive care. MMODL / IJN: [id number] /
[2021-01-01] MEDS ORDERED: VANCOMYCIN TROUGH DUE 1 EACH MISC MISCELLANE ONE (20:00)
[2021-01-01] MEDS ORDERED: MELATONIN 3 MG TABLET PO SCH (21:00)
[2021-01-01] MEDS: MELATONIN 3 MG TABLET PO PRN (22:01)
[2021-01-02] MEDS: SODIUM CHLORIDE 0.9% 1,000 ML IV SCH ×3 (00:16→20:42)
[2021-01-02] MEDS: CEFEPIME 2 GM in SODIUM CHLORIDE 0.9% 100 ML IVPB SCH ×3 (00:17→16:18)
[2021-01-02] MEDS: VANCOMYCIN 1,000 MG in SODIUM CHLORIDE 0.9% 250 ML IVPB SCH ×3 (05:48→21:50)
[2021-01-02] MEDS: MORPHINE SULFATE 4 MG/ML SYRINGE IVP PRN ×3 (07:09→20:45)
[2021-01-02] MEDS: IPRATROPIUM-ALBUTEROL 3 ML NEB INHALATION SCH ×4 (07:30→20:09)
[2021-01-02] MEDS: ENOXAPARIN 40 MG/0.4 ML SYRINGE SQ SCH (07:53)
[2021-01-02] MEDS: ASCORBIC ACID 500 MG TAB PO SCH (07:53)
[2021-01-02] MEDS: polyethylene glycoL 3350 17 GM POWD.PACK PO SCH (07:53)
[2021-01-02] MEDS: ASPIRIN 81 MG PO SCH (07:53)
[2021-01-02] MEDS: MULTIVITAMINS, THERA 1 EACH TAB PO SCH (07:53)
--- NOTE | 2021-01-02 07:55 | XR ---
EXAMINATION TYPE: XR chest 1V portable DATE OF EXAM: 01/02/2021 Comparison: 01/01/2021 Clinical History: 60-year-old male Left chest tube Findings: Left apical chest tube is present. Staple lines in the left upper lung from prior wedge resection. Le ft apical pleural cavity is redemonstrated. There is increased density here suggesting some increasin g fluid within the cavity. Change and scarring redemonstrated at the right apex. Patchy left basilar opacity similar. Hyperinflation. Impression: 1. Left-sided chest tube in place with a similar left apical pleural cavity. There is increasing dens ity here possibly reflecting some increasing fluid within the cavity. No enlarging pneumothorax. Stab le postsurgical change left suprahilar region. 2. COPD and similar patchy infiltrate at the left base.
--- NOTE | 2021-01-02 09:20 | P.PN ---
Subjective Progress Note Date: 01/02/21 Principal diagnosis: He is a past medical history significant for COPD with chronic emphysematous changes and a remote history of tobacco dependence as he quit smoking 2 years ago. In October 2020 the patient had a spontaneous left-sided pneumothorax with a left-sided Thoravent place with successful expansion of his left lung. Subsequently the Thoravent was removed and the patient was discharged home. Upon follow-up with his broth setter Dr. TROY Mcadams the patient was found to have a recurrent left-sided pneumothorax and was subsequently admitted to [facility] for further evaluation and treatment. The patient reports he was then transferred to a surgeon at [facility] where he was seen by thoracic surgery and due to his persistent left-sided pneumothorax and persistent air leak he underwent a thoracoscopic wedge resection with pleurodesis. The surgical reports are unavailable at this time. The patient also reports during the hospitalization he did have 2 chest tubes placed. From [facility] he was then transferred to [facility] for rehab with [address] remaining in place. According to the patient while at the rehab facility he went from 120 pounds to about 105 pounds over a course of a couple of weeks and was subsequently picked up by his daughter and brought here to [facility] for further treatment and evaluation. The patient denies any recent fever, chills, nausea, vomiting, palpitations, hematemesis, hemoptysis, constipation, diarrhea, chest pain or syncope. The patient does report though to having shortness of breath. A chest x-ray was completed in the emergency department which showed bullous pulmonary emphysema, left chest tube in good position, a fluid level at the left lung apex with a cavity that measures approximately 7 cm, and possible empyema. For further marco antonio luation a computed tomography scan of his chest with contrast was completed which showed bullous pulmonary emphysema, a large cavity at the left lung apex, a left pleural effusion, course infiltrate and atelectasis at his left lung base, and course density to his left upper lobe consistent with scarring and atelectasis. The patient was seen in follow-up today 01/02/2021 at his bedside on the fourth floor medical surgical unit. Currently is laying in bed, is awake, alert and oriented 3 and is in no acute apparent distress. The patient denies any complaints of shortness of breath at this time, although states that he does get some what short of breath with increase in activity. Denies any complaints of chest pain or chest pressure. He reports that he is having some continued pain to his right wrist but attributes this to an old injury at work. An x-ray of his right wrist was completed on 12/31/2020 which showed no acute fracture or dislocation to the right wrist. Oxygen saturation are 96% on 1 L nasal cannula and he is achieving 500 mL on his incentive spirometry with encouragement. Left pleural chest tube remains in place to low continuous wall suction -20 cm H2O. Draining thin serous drainage with 100 mL output in the last 24 hours. No air leak is present. Pleural fluid culture preliminary results show many polymorphonuclear leukocytes with no organisms seen. Blood culture results show no growth after 48 hours. The patient remains on cefepime and vancomycin for antibiotic coverage managed by infectious disease. He remains afebrile the last 24 hours. Objective - Vital Signs Vital signs: Vital Signs Temp 98.1 F 01/02/21 07:48 Pulse 90 01/02/21 07:48 Resp 16 01/02/21 07:48 BP 132/71 01/02/21 07:48 Pulse Ox 96 01/02/21 07:48 Intake & Output 01/01/21 01/02/21 01/02/21 18:59 06:59 18:59 Intake Total 540 Balance 540 Intake: Oral 540 Other: # Voids 3 2 # Bowel Movements 1 1 - Exam CONSTITUTIONAL: Sitting up in bed on the fourth floor medical surgical unit, appears comfortable, cooperative, no apparent acute distress. Cachectic and frail. HEENT: Neck is supple, no JVD, no lymphadenopathy. RESPIRATORY: Lungs sounds essentially diminished throughout. Respirations are symmetrical and nonlabored. Currently on 1 L nasal cannula with oxygen saturations 96%. Strong cough. Achieving 500 mL on his incentive spirometry with much encouragement. CARDIOVASCULAR: Regular rhythm and rate. S1 and S2 present, negative for S3, gallop or murmur. No edema present. GASTROINTESTINAL: Abdomen soft, nontender, nondistended. Active bowel sounds present 4 quadrants. No guarding or rigidity. No organomegaly appreciated. GENITOURINARY: Continues to void. INTEGUMENTARY: Skin is warm and dry with no evidence of clubbing or cyanosis. Left chest incisions clean, dry and approximated. No drainage or redness is present. Dressing clean, dry and intact to his left chest tube insertion site. NEUROLOGIC: Cranial nerves II through XII intact. No focal deficits. MUSKULOSKELETAL: Able to move all extremities, strength equal bilaterally, generalized weakness. PSYCHIATRIC: Alert and oriented to person place and time, appropriate affect, intact judgment and insight. INVASIVE LINES AND TUBES: Left pleural chest tubes present and connected to low continuous wall suction, no air leaks present. Draining thin serous drainage with 100 mL output in the last 24 hours. - Allied health notes Allied health notes reviewed: nursing - Labs CBC & Chem 7: 01/01/21 06:11 01/01/21 06:11 Labs: Abnormal Lab Results - Last 24 Hours (Table) 01/01/21 Range/Units 06:11 WBC 15.93 H (4.50-10.00) X 10*3/uL RBC 3.94 L (4.40-5.60) X 10*6/uL Hgb 10.4 L (13.0-17.0) g/dL Hct 33.2 L (39.6-50.0) % MCH 26.4 L (27.0-32.0) pg MCHC 31.3 L (32.0-37.0) g/dL RDW 15.0 H (11.5-14.5) % Plt Count 935 H (140-440) X 10*3/uL Plt Count Comment INCREASED A Immature Gran # 0.15 H (0.00-0.04) X 10*3/uL Neutrophils # 12.83 H (1.80-7.70) X 10*3/uL Monocytes # 1.44 H (0.20-1.00) X 10*3/uL Microbiology - Last 24 Hours (Table) 12/30/20 20:28 Blood Culture - Preliminary Blood No Growth after 48 hours 12/30/20 20:28 Blood Culture - Preliminary Blood No Growth after 48 hours 12/31/20 13:50 Gram Stain - Preliminary Pleural Fluid Body Fluid Culture - Preliminary - Imaging and Cardiology Chest x-ray: report reviewed, image reviewed Assessment and Plan Assessment: 1. Left-sided pneumothorax with chest tube in place, status post left-sided thoracoscopic wedge resection and pleurodesis at [facility] 2. Left upper lobe loculated pneumothorax, left-sided chest tube in place 3. Severe bullous emphysema 4. Leukocytosis secondary to above 5. Generalized debility with a BMI of 16.2 with recent weight loss 6. Remote history of smoking dependence, quit 2 years ago Plan: 1. Continue to follow blood culture and pleural fluid culture results. Preliminary blood culture results show no growth. 2. Encourage incentive spirometry 10 times every hour while awake. Bronchodilators per pulmonology management. 3. Increase activity, ambulate as tolerated. Out of bed for all meals. Physical and occupational therapy consulted. 4. Antibiotic management per infectious disease recommendations. Currently on cefepime and vancomycin. 5. Continue to follow daily chest x-rays. 6. Keep left pleural chest tube in place to low continuous wall suction -20 cm H2O. 7. Pain control with current medication regimen 8. More recommendations to follow based on patient's clinical course. Time with Patient: Greater than 30
--- NOTE | 2021-01-02 09:23 | P.PN ---
Subjective Progress Note Date: 01/02/21 Venkata Winters, is a 60-year-old male who presented to [facility] emergency room with a chief complaint of chest discomfort and shortness of breath He was evaluated in the emergency room vital examination on presentation revealed a temperature of 97.9 pulse 96 respiration 18 blood pressure 100/53 pulse ox 98% on 4 L nasal cannula Laboratory data revealed a white blood count of 20.7 hemoglobin 10.3 platelet count 759 sodium 132 potassium 3.7 BUN 14 creatinine 0.4 CO2 43 coronavirus PCR was negative Testing in the emergency room revealed chest x-ray done in the emergency room revealed bullous pulmonary emphysema, left chest tube in good position, fluid level at the left lung apex with a cavity that measured approximately 7 cm, there was also new patchy infiltrates in the left lower lobe, and blunting of the costophrenic angle. Patient was admitted to medical floor for further evaluation and treatment Past medical history is significant for previous admission in October of this ye ar with spontaneous pneumothorax at that time a thoravent was placed. Patient also has a known history of COPD, benign prostatic hypertrophy, depression and prolonged history of tobacco use. On 01/01/2021 patient's alert and oriented 3. Patient remains with chest tube. Repeat chest x-ray completed showing chronic changes with left apical pleural cavity with dependent fluid and internal drainage catheter no new acute infiltrate and no significant change from one day earlier. Cardiothoracic, pulmonary and infectious disease services are following. Patient remains on cefepime and vancomycin. Patient reports slight improvement. Patient denies chest pain. Patient denies nausea vomiting or diarrhea. Patient denies any urinary burning or frequency On 01/02/2021 patient is alert and oriented 3. Patient remains on IV antibiotics and chest tube to suction. Cardiothoracic pulmonary and infectious disease services are following. Patient is still complaining of right wrist discomfort. X-ray was completing showing no new acute fracture dislocation to right wrist. Will order uric acid level. Patient denies any chest pain. Patient denies nausea vomiting or diarrhea. Patient denies any urinary burning or frequency Objective - Vital Signs Vital signs: Vital Signs Temp 98.1 F 01/02/21 07:48 Pulse 90 01/02/21 07:48 Resp 16 01/02/21 07:48 BP 132/71 01/02/21 07:48 Pulse Ox 96 01/02/21 07:48 Intake & Output 01/01/21 01/02/21 01/02/21 18:59 06:59 18:59 Intake Total 540 Balance 540 Intake: Oral 540 Other: # Voids 3 2 # Bowel Movements 1 1 - Exam In general patient is alert and oriented x 3 in no distress HEENT head normocephalic and atraumatic Neck is supple no JVD no goiter no lymphadenopathy no carotid bruit Chest examination is clear to auscultation no crackles no wheezing Cardiac exam reveals regular heart sounds S1 and S2 no gallops no murmurs Abdomen is soft nontender no organomegaly with normal bowel sounds Extremity exam reveals no edema no cyanosis or clubbing Neurological examination reveals no gross focal deficits - Labs CBC & Chem 7: 01/01/21 06:11 01/01/21 06:11 Labs: Abnormal Lab Results - Last 24 Hours (Table) 01/01/21 Range/Units 06:11 WBC 15.93 H (4.50-10.00) X 10*3/uL RBC 3.94 L (4.40-5.60) X 10*6/uL Hgb 10.4 L (13.0-17.0) g/dL Hct 33.2 L (39.6-50.0) % MCH 26.4 L (27.0-32.0) pg MCHC 31.3 L (32.0-37.0) g/dL RDW 15.0 H (11.5-14.5) % Plt Count 935 H (140-440) X 10*3/uL Plt Count Comment INCREASED A Immature Gran # 0.15 H (0.00-0.04) X 10*3/uL Neutrophils # 12.83 H (1.80-7.70) X 10*3/uL Monocytes # 1.44 H (0.20-1.00) X 10*3/uL Microbiology - Last 24 Hours (Table) 12/30/20 20:28 Blood Culture - Preliminary Blood No Growth after 48 hours 12/30/20 20:28 Blood Culture - Preliminary Blood No Growth after 48 hours 12/31/20 13:50 Gram Stain - Preliminary Pleural Fluid Body Fluid Culture - Preliminary Assessment and Plan Plan: Left sided pneumothorax, with to chest tube placement over the last 2 months, and pleurodesis at [facility] Severe bullous emphysema Acute hypercapnic respiratory failure Leukocytosis, cannot rule out empyema and sepsis, blood culture pending, patient is maintained on IV antibiotics, Zosyn and vancomycin infectious disease consultation requested Underlying history of bullos emphysema with a previous history of spontaneous pneumothorax Underlying history of COPD Cachexia with severe weight loss Underlying history of benign prostatic hypertrophy Underlying history continued tobacco use, patient counseled in length in regards to smoking cessation Pulmonary, infectious disease and cardiothoracic team following Maintained on IV antibiotics Uric acid level ordered Chest tube in place and draining Will follow closely Prognosis is guarded
[2021-01-02 11:07] LABS: HGB 9.3 g/dL (13.0-17.0); MCH 26.3 pg (27.0-32.0); MCV 84.7 fL (80.0-97.0); Mean Platelet Volume 10.3 fL (9.5-12.2); Platelet Count 874 X 10*3/uL (140-440); RBC 3.54 X 10*6/uL (4.40-5.60); RDW 15.3 % (11.5-14.5); WBC 15.89 X 10*3/uL (4.50-10.00)
[2021-01-02] MEDS: TAMSULOSIN 0.4 MG CAP.ER.24H PO SCH (11:40)
[2021-01-02] MEDS: SERTRALINE 25 MG TAB PO SCH (11:40)
[2021-01-02 11:43] LABS: Basophils # (A) 0.02 X 10*3/uL (0.00-0.10); Basophils % (A) 0.1 %; Eosinophils # (A) 0.35 X 10*3/uL (0.04-0.35); Eosinophils % (A) 2.2 %; Lymphocytes # (A) 1.12 X 10*3/uL (0.90-5.00); Monocytes # (A) 1.57 X 10*3/uL (0.20-1.00); Monocytes % (A) 9.9 %; Neutrophils # (A) 12.67 X 10*3/uL (1.80-7.70); Neutrophils % (A) 79.8 %
[2021-01-02 12:26] LABS: ALT 16 U/L (10-49); AST 25 U/L (14-35); Albumin 2.6 g/dL (3.8-4.9); Albumin/Globulin Ratio 0.92 (1.60-3.17); Alkaline Phosphatase 62 U/L (41-126); Blood Urea Nitrogen 4.4 mg/dL (9.0-27.0); Carbon Dioxide 31.5 mmol/L (21.6-31.8); Chloride 96 mmol/L (96-109); Globulin 2.8 g/dL (1.6-3.3); Glucose 97 mg/dL (70-110); Sodium 138 mmol/L (135-145); Total Bilirubin <0.20 mg/dL (0.30-1.20); Total Protein 5.4 g/dL (6.2-8.2)
--- NOTE | 2021-01-02 13:20 | CDI ---
Documentation Clarification Form Date: 01/02/2021 12:40:52 PM From: Pippa Wynn RN CCDS Admit Date: 12/30/2020 08:12:00 PM Patient Name: Venkata Winters Visit Number: [id number] Discharge Date: ATTENTION: The Clinical Documentation Specialists (CDI) and [facility] Coding Staff appreciate your assistance in clarifying documentation. Please respond to the clarification below the line at the bottom and electronically sign. The CDI & [facility] Coding staff will review the response and follow-up if needed. Please note: Queries are made part of the Legal Health Record. If you have any questions, please contact the author of this message via ITS. Dr. Penelope Orta Cachexia with severe weight loss. Is documented in the H&P 12/31 and subsequent progress notes from Medicine 01/01 & 01/02. Based on this information and the findings below, is there an additional diagnosis that is clinically appropriate for this patient? History/Risk Factors: 60-year-old male presents to the ED with chest discomfort and shortness of breath. Medical History: Pneumonia, COPD, Left sided pneumothorax, with to chest tube over the last 2 months and pleurodesis. H&P 12/30 Clinical Indicators: Pulmonary progress note 01/01 The patient is quite debilitated and malnourished and may not be a candidate for another surgical intervention. RD Consult Assessment: Underweight evidenced by Inadequate oral intake related to chronic catabolic illness/COPD. Current BMI: 16.2kg Insufficient energy intake: Inadequate oral intake <75% intake of EER, 4.5 kg wt loss x 2 months. Treatment: Monitor acceptance of high protein snack. Monitor po intake. Modified food. RD Consult: See above Supplements: Magic Cup Is there an additional diagnosis that is clinically appropriate for this patient? [ ] Moderate Protein-Calorie Malnutrition [ ] Severe Protein-Calorie Malnutrition [ ] Other condition, please specify [ ] Unable to Determine (Template Last Revised: May 2020) Severe protein calorie malnutrition MTDD
[2021-01-02] MEDS ORDERED: FLUCONAZOLE ORAL SUSP 1,400 MG/35 ML BOTTLE PO SCH (14:00)
--- NOTE | 2021-01-02 16:13 | P.PN ---
Subjective Progress Note Date: 01/02/21 Principal diagnosis: Shortness of breath, left-sided loculated pneumothorax, status post left-sided chest tube insertion On 01/02/2001 patient seen in follow-up on medical surgical floor. Left-sided chest tube remains in place, with evidence of intermittent air leak, remains to water suction, and there is a total of 580 mL of yellowish colored pleural fluid in the Pleur-evac. Patient is on 2 L of oxygen pulse ox is 96%, afebrile, today's chest x-ray shows increasing density possibly reflecting some increasing fluid within the cavity, no enlarging pneumothorax, and postsurgical stable changes in the left suprahilar region. Patient remains on, in addition of cefepime and vancomycin. Pleural fluid cultures are positive for presumptive staph aureus, final culture is pending, blood cultures have been negative. Today's labs have been noted. Patient was tested for COVID-19 was found to be negative. Denies hemoptysis, denies significant chest discomfort, however he is short of breath with exertion. Objective - Vital Signs Vital signs: Vital Signs Temp 97.9 F 01/02/21 14:00 Pulse 102 H 01/02/21 14:00 Resp 20 01/02/21 14:00 BP 121/69 01/02/21 14:00 Pulse Ox 96 01/02/21 14:00 Intake & Output 01/01/21 01/02/21 01/02/21 18:59 06:59 18:59 Intake Total 540 Balance 540 Intake: Oral 540 Other: # Voids 3 2 # Bowel Movements 1 1 - Exam GENERAL EXAM: Alert, very pleasant, 60-year-old white male, on 2 L of oxygen, with pulse ox of 96%, in no apparent distress. HEAD: Normocephalic/atraumatic. EYES: Normal reaction of pupils, equal size. Conjunctiva pink, sclera white. NOSE: Clear with pink turbinates. THROAT: No erythema or exudates. NECK: No masses, no JVD, no thyroid enlargement, no adenopathy. CHEST: No chest wall deformity. Symmetrical expansion. Left-sided chest tube in place, connected to wall suction, with 180 mL of yellow pleural fluid LUNGS: Equal air entry with diminished breath sounds at the crackles at the left base CVS: Regular rate and rhythm, normal S1 and S2, no gallops, no murmurs, no rubs ABDOMEN: Soft, nontender. No hepatosplenomegaly, normal bowel sounds, no guar ding or rigidity. EXTREMITIES: No clubbing, no edema, no cyanosis, 2+ pulses and upper and lower extremities. MUSCULOSKELETAL: Muscle strength and tone normal. SPINE: No scoliosis or deformity SKIN: No rashes CENTRAL NERVOUS SYSTEM: Alert and oriented -3. No focal deficits, tone is normal in all 4 extremities. PSYCHIATRIC: Alert and oriented -3. Appropriate affect. Intact judgment and insight. - Labs CBC & Chem 7: 01/02/21 06:30 01/02/21 06:30 Labs: Abnormal Lab Results - Last 24 Hours (Table) 01/02/21 01/02/21 Range/Units 06:30 06:30 WBC 15.89 H (4.50-10.00) X 10*3/uL RBC 3.54 L (4.40-5.60) X 10*6/uL Hgb 9.3 L (13.0-17.0) g/dL Hct 30.0 L (39.6-50.0) % MCH 26.3 L (27.0-32.0) pg MCHC 31.0 L (32.0-37.0) g/dL RDW 15.3 H (11.5-14.5) % Plt Count 874 H (140-440) X 10*3/uL Plt Count Comment INCREASED A Immature Gran # 0.16 H (0.00-0.04) X 10*3/uL Neutrophils # 12.67 H (1.80-7.70) X 10*3/uL Monocytes # 1.57 H (0.20-1.00) X 10*3/uL BUN 4.4 L (9.0-27.0) mg/dL Creatinine <0.2 L (0.6-1.5) mg/dL Calcium 8.0 L (8.7-10.3) mg/dL Total Bilirubin <0.20 L (0.30-1.20) mg/dL Total Protein 5.4 L (6.2-8.2) g/dL Albumin 2.6 L (3.8-4.9) g/dL Albumin/Globulin Ratio 0.92 L (1.60-3.17) g/dL Microbiology - Last 24 Hours (Table) 12/31/20 13:50 Gram Stain - Preliminary Pleural Fluid Body Fluid Culture - Preliminary Presumptive Staph aureus 12/30/20 20:28 Blood Culture - Preliminary Blood No Growth after 48 hours 12/30/20 20:28 Blood Culture - Preliminary Blood No Growth after 48 hours Assessment and Plan Plan: 1 severe bullous emphysema 2 left-sided pneumothorax. , failed chest tube and ultimately the patient underwent a thoracoscopic wedge resection of the lung with pleurodesis. The surgery was done at [facility]. His course was complicated also with the pleural space infection. Based on the records forwarded to us from [facility], the patient had MSSA in the pleural fluid. 3 left upper lobe located pneumothorax/fluid-filled bolus. Noted the patient is post pleurodesis. There is an air-fluid level within the left upper lobe cavity which is probably representation of an underlyinginfection. Chest tube is in a good location. There is no evidence of any air leak. There is purulent material draining in the Pleur-evac. The output has been in the order of 60 mL of purulent material over the past 8 hours. 4 leukocytosis secondary to above, improving 5 secondary erythrocytosis related to pleural space infection 6 debility and weight loss with a body mass index of 16.2 7 history of chronic smoker. The patient quit smoking approximately 2 years ago. Plan: Continue current antibiotics We'll await final pleural fluid cultures Patient continues with the air leak We recommend patient transfers back to the [facility] to see his thoracic surgeon and be evaluated for possibility of surgery Discharge planning was notified, We will defer to the admitting physician to make arrangements We'll continue to follow I performed a history & physical examination of the patient and discussed their management with my nurse practitioner, Neva Escamilla. I reviewed the nurse practitioner's note and agree with the documented findings and plan of care. Lung sounds are positive for diffuse wheezes throughout the lung sharif. The findings and the impression was discussed with the patient. I attest to the documentation by the nurse practitioner. Time with Patient: Less than 30
--- NOTE | 2021-01-02 16:18 | P.PN ---
Progress Note - Text Progress Note Date: 01/02/[address] Taqueria Escudero from [facility] . He is familiar with this patient and he accepted patient's tranfer to [facility].
[2021-01-02] MEDS ORDERED: ALPRAZolam 0.5 MG TAB PO PRN (20:28)
[2021-01-02] MEDS: MELATONIN 3 MG TABLET PO PRN (22:48)
[2021-01-03] MEDS: CEFEPIME 2 GM in SODIUM CHLORIDE 0.9% 100 ML IVPB SCH ×3 (00:15→16:03)
[2021-01-03] MEDS: MORPHINE SULFATE 4 MG/ML SYRINGE IVP PRN ×2 (02:53→16:03)
[2021-01-03] MEDS: VANCOMYCIN 1,000 MG in SODIUM CHLORIDE 0.9% 250 ML IVPB SCH ×2 (05:50→13:53)
[2021-01-03] MEDS: SODIUM CHLORIDE 0.9% 1,000 ML IV SCH ×2 (05:52→18:06)
[2021-01-03 06:59] LABS: ALT 16 U/L (4-49); AST 29 U/L (17-59); African American GFR (CKD) >90 (>60 ml/min/1.73 sqM); Albumin 2.6 g/dL (3.5-5.0); Albumin/Globulin Ratio 0.8; Alkaline Phosphatase 64 U/L (38-126); Anion Gap 3 mmol/L; Blood Urea Nitrogen 5 mg/dL (9-20); Calcium 8.3 mg/dL (8.4-10.2); Carbon Dioxide 37 mmol/L (22-30); Chloride 95 mmol/L (98-107); Globulin 3.1 g/dL; Glucose 97 mg/dL (74-99); Non-African American GFR(CKD) >90 (>60 ml/min/1.73 sqM); Potassium 3.8 mmol/L (3.5-5.1); Sodium 135 mmol/L (137-145); Total Bilirubin 0.3 mg/dL (0.2-1.3); Total Protein 5.7 g/dL (6.3-8.2)
[2021-01-03] MEDS: ASPIRIN 81 MG PO SCH (07:47)
[2021-01-03] MEDS: ASCORBIC ACID 500 MG TAB PO SCH (07:48)
[2021-01-03] MEDS: ENOXAPARIN 40 MG/0.4 ML SYRINGE SQ SCH (07:48)
[2021-01-03] MEDS: SERTRALINE 25 MG TAB PO SCH (07:48)
[2021-01-03] MEDS: MULTIVITAMINS, THERA 1 EACH TAB PO SCH (07:48)
[2021-01-03] MEDS: TAMSULOSIN 0.4 MG CAP.ER.24H PO SCH (07:48)
[2021-01-03] MEDS: polyethylene glycoL 3350 17 GM POWD.PACK PO SCH (07:48)
[2021-01-03] MEDS: IPRATROPIUM-ALBUTEROL 3 ML NEB INHALATION SCH ×4 (09:08→19:52)
[2021-01-03 09:22] LABS: Basophils # (A) 0.05 X 10*3/uL (0.00-0.10); Basophils % (A) 0.3 %; Eosinophils # (A) 0.78 X 10*3/uL (0.04-0.35); Eosinophils % (A) 4.3 %; HCT 29.7 % (39.6-50.0); HGB 9.4 g/dL (13.0-17.0); Lymphocytes % (A) 8.8 %; MCH 27.6 pg (27.0-32.0); MCHC 31.6 g/dL (32.0-37.0); MCV 87.4 fL (80.0-97.0); Mean Platelet Volume 10.2 fL (9.5-12.2); Monocytes % (A) 9.9 %; Neutrophils # (A) 13.71 X 10*3/uL (1.80-7.70); Neutrophils % (A) 75.7 %; Platelet Count 934 X 10*3/uL (140-440); RDW 14.8 % (11.5-14.5); WBC 18.12 X 10*3/uL (4.50-10.00)
--- NOTE | 2021-01-03 11:35 | PN ---
PROGRESS NOTE DATE OF SERVICE: 01/02/2021 REASON FOR FOLLOWUP: Left-sided empyema. INTERVAL HISTORY: The patient is afebrile. The patient is breathing slightly comfortably today. No chest pain. He continues to have a cough, not bringing up any sputum. No abdominal pain or diarrhea. PHYSICAL EXAMINATION: Blood pressure 147/81 with a pulse of 87, temperature 97.3. He is 96% on 2 L nasal cannula. General description is a middle-aged male lying in bed in no distress. RESPIRATORY SYSTEM: Unlabored breathing. Decreased breath sounds at the bases. No wheeze. HEART: S1, S2. Regular rate and rhythm. ABDOMEN: Soft. No tenderness. LABS: Culture showing presumptive Staph aureus. White count of 15.8 creatinine 0.2. DIAGNOSTIC IMPRESSION AND PLAN: Patient with left-sided empyema in this patient who did have a wedge resection, pleurodesis hospital cultures that were positive for MSSA and showing a Staph aureus and likely MSSA. Patient at this time is covered with vancomycin and cefepime with antibiotic to be adjusted further on the basis of culture report. Continue supportive care. MMODL / IJN: [id number] /
[2021-01-03] MEDS ORDERED: VANCOMYCIN TROUGH DUE 1 EACH MISC MISCELLANE ONE (12:00)
--- NOTE | 2021-01-03 13:41 | P.PN ---
Subjective Progress Note Date: 01/03/21 Principal diagnosis: Left-sided loculated pneumothorax with chest tube in place, severe bullous emphysema, leukocytosis with pleural fluid positive for MSSA, possible emypema. Previous medical history of recent left-sided thoracoscopic wedge resection and pleurodesis at [facility], generalized debility, recent weight loss, previous tobacco dependence The patient was seen and examined at the bedside sitting up in no acute distress. Does not complain of any pain or shortness of breath at this time although does have shortness of breath with activity. Left-sided pleural chest tube remains present to continuous wall suction, no air leak present, 30 mL s erous drainage overnight, 90 mL in the last 24 hours, no air leak present. Patient remains on 1-2 L nasal cannula with oxygen saturation in the mid 90s. Barely able to achieve 500 mL on his incentive spirometry. Remains on cefepime and vancomycin per infectious disease. Apparently plans are in place for patient to be transferred to [facility] some time today to be evaluated by his previous thoracic surgeon. Objective - Vital Signs Vital signs: Vital Signs Temp 97.4 F L 01/03/21 07:52 Pulse 93 01/03/21 07:52 Resp 18 01/03/21 07:52 BP 138/70 01/03/21 07:52 Pulse Ox 93 L 01/03/21 07:52 Intake & Output 01/02/21 01/03/21 01/03/21 18:59 06:59 18:59 Output Total 80 450 Balance -80 -450 Output: Chest Tube Drainage 80 30 Left Lateral Chest 80 30 Urine 420 Other: # Voids 1 2 # Bowel Movements 1 0 - Exam CONSTITUTIONAL: Sitting up in bed in no acute distress, appears cachectic RESPIRATORY: Lungs sounds diminished bilaterally, left greater than right. Respirations even, nonlabored. Currently on 1 L nasal cannula with oxygen saturation 93%. Barely able to achieve 500 mL on incentive spirometry. Weak cough. CARDIOVASCULAR: S1, S2 present. Regular rate and rhythm. Palpable peripheral pulses bilaterally. No edema present. No calf pain or tenderness noted. GASTROINTESTINAL: Abdomen soft, nontender, nondistended. Active bowel sounds present 4 quadrants. Tolerating diet. Positive bowel movement. GENITOURINARY: Continues to void INTEGUMENTARY: Skin is warm and dry NEUROLOGIC: Cranial nerves II through XII intact MUSKULOSKELETAL: Able to move all extremities, strength equal bilaterally, generalized weakness present PSYCHIATRIC: Alert and oriented to person place and time, appropriate affect, intact judgment and insight INVASIVE LINES AND TUBES: Left pleural chest tubes present and connected to wall suction, no air leaks present, 30 mL serous drainage overnight, 90 mL in the last 24 hours. - Labs CBC & Chem 7: 01/03/21 06:03 01/03/21 06:03 Labs: Abnormal Lab Results - Last 24 Hours (Table) 01/03/21 01/03/21 Range/Units 06:03 06:03 WBC 18.12 H (4.50-10.00) X 10*3/uL RBC 3.40 L (4.40-5.60) X 10*6/uL Hgb 9.4 L (13.0-17.0) g/dL Hct 29.7 L (39.6-50.0) % MCHC 31.6 L (32.0-37.0) g/dL RDW 14.8 H (11.5-14.5) % Plt Count 934 H (140-440) X 10*3/uL Immature Gran # 0.18 H (0.00-0.04) X 10*3/uL Neutrophils # 13.71 H (1.80-7.70) X 10*3/uL Monocytes # 1.80 H (0.20-1.00) X 10*3/uL Eosinophils # 0.78 H (0.04-0.35) X 10*3/uL Sodium 135 L (137-145) mmol/L Chloride 95 L (98-107) mmol/L Carbon Dioxide 37 H (22-30) mmol/L BUN 5 L (9-20) mg/dL Creatinine 0.37 L (0.66-1.25) mg/dL Calcium 8.3 L (8.4-10.2) mg/dL Total Protein 5.7 L (6.3-8.2) g/dL Albumin 2.6 L (3.5-5.0) g/dL Microbiology - Last 24 Hours (Table) 12/31/20 13:50 Gram Stain - Final Pleural Fluid Body Fluid Culture - Final Staphylococcus aureus 12/30/20 20:28 Blood Culture - Preliminary Blood No Growth after 72 hours 12/30/20 20:28 Blood Culture - Preliminary Blood No Growth after 72 hours Assessment and Plan Assessment: 1. Left-sided loculated pneumothorax with chest tube in place 2. Severe bullous emphysema 3. Leukocytosis with pleural fluid positive for MSSA, possible emypema 4. History of recent left-sided thoracoscopic wedge resection and pleurodesis at [facility] 5. Generalized debility 6. Recent weight loss 7. Previous tobacco Plan: 1. Pleural fluid positive for MSSA, continue antibiotics per infectious disease recommendations 2. Encourage incentive spirometry 10 times every hour while awake. Bronchodilators per pulmonology management. 3. Increase activity, ambulate as tolerated. Out of bed for all meals. PT/OT following 4. Keep left pleural chest tube in place to low continuous wall suction -20 cm H2O. 5. Pain control with current medication regimen 6. Plan is for patient to be transferred to [facility] later today for management per patient's primary thoracic surgeon Time with Patient: Less than 30
--- NOTE | 2021-01-03 14:07 | P.PN ---
Subjective Progress Note Date: 01/03/21 Principal diagnosis: Left-sided loculated pneumothorax, status post left-sided chest tube insertion The patient is seen today 01/03/2021 in follow-up on the regular medical floor. He is currently sitting up in a chair at the bedside. Awake, alert, still with dyspnea on minimal exertion. He is maintaining O2 saturations in the 90s on 2 L/m per nasal cannula. He's been afebrile. Hemodynamically stable. Pleural fluid cultures positive for Staphylococcus aureus. Blood cultures are revealing no growth. White count 18.1. Hemoglobin 9.4. Platelet count 1934. Sodium 135 . Potassium 3.8. Creatinine 0.37. Mccray virus not detected. He is continued on antibiotics in form of vancomycin and cefepime, bronchodilators, Lovenox for DVT prophylaxis. Objective - Vital Signs Vital signs: Vital Signs Temp 97.4 F L 01/03/21 07:52 Pulse 93 01/03/21 07:52 Resp 18 01/03/21 07:52 BP 138/70 01/03/21 07:52 Pulse Ox 93 L 01/03/21 07:52 Intake & Output 01/02/21 01/03/21 01/03/21 18:59 06:59 18:59 Output Total 80 450 Balance -80 -450 Output: Chest Tube Drainage 80 30 Left Lateral Chest 80 30 Urine 420 Other: # Voids 1 2 # Bowel Movements 1 0 - Exam CONSTITUTIONAL: Cachectic, 60-year-old male patient, up in a chair at the bedside, appears comfortable, cooperative, no apparent acute distress. HEENT: Neck is supple, no JVD, no lymphadenopathy. RESPIRATORY: Lungs sounds essentially diminished throughout. Scattered rhonchi over the left lung. Respirations are symmetrical and nonlabored. Currently on 2 L nasal cannula with oxygen saturations 95%. Strong cough. CARDIOVASCULAR: Regular rhythm and rate. S1 and S2 present, negative for S3, gallop or murmur. No edema present. GASTROINTESTINAL: Abdomen soft, nontender, nondistended. Active bowel sounds present 4 quadrants. No guarding or rigidity. No organomegaly appreciated. GENITOURINARY: Continues to void. INTEGUMENTARY: Skin is warm and dry with no evidence of clubbing or cyanosis. Left chest incisions clean, dry and approximated. No drainage or redness is present. Dressing clean, dry and intact to his left chest tube insertion site. NEUROLOGIC: Cranial nerves II through XII intact. No focal deficits. MUSKULOSKELETAL: Able to move all extremities, strength equal bilaterally, generalized weakness. PSYCHIATRIC: Alert and oriented to person place and time, appropriate affect, intact judgment and insight. INVASIVE LINES AND TUBES: Left pleural chest tubes present and connected to low continuous wall suction, no air leaks present. Draining thin serous drainage. - Labs CBC & Chem 7: 01/03/21 06:03 01/03/21 06:03 Labs: Abnormal Lab Results - Last 24 Hours (Table) 01/03/21 01/03/21 Range/Units 06:03 06:03 WBC 18.12 H (4.50-10.00) X 10*3/uL RBC 3.40 L (4.40-5.60) X 10*6/uL Hgb 9.4 L (13.0-17.0) g/dL Hct 29.7 L (39.6-50.0) % MCHC 31.6 L (32.0-37.0) g/dL RDW 14.8 H (11.5-14.5) % Plt Count 934 H (140-440) X 10*3/uL Immature Gran # 0.18 H (0.00-0.04) X 10*3/uL Neutrophils # 13.71 H (1.80-7.70) X 10*3/uL Monocytes # 1.80 H (0.20-1.00) X 10*3/uL Eosinophils # 0.78 H (0.04-0.35) X 10*3/uL Sodium 135 L (137-145) mmol/L Chloride 95 L (98-107) mmol/L Carbon Dioxide 37 H (22-30) mmol/L BUN 5 L (9-20) mg/dL Creatinine 0.37 L (0.66-1.25) mg/dL Calcium 8.3 L (8.4-10.2) mg/dL Total Protein 5.7 L (6.3-8.2) g/dL Albumin 2.6 L (3.5-5.0) g/dL Microbiology - Last 24 Hours (Table) 12/31/20 13:50 Gram Stain - Final Pleural Fluid Body Fluid Culture - Final Staphylococcus aureus 12/30/20 20:28 Blood Culture - Preliminary Blood No Growth after 72 hours 12/30/20 20:28 Blood Culture - Preliminary Blood No Growth after 72 hours Assessment and Plan Assessment: 1 severe bullous emphysema 2 left-sided pneumothorax. Failed chest tube and ultimately the patient underwent a thoracoscopic wedge resection of the lung with pleurodesis. The surgery was done at [facility]. His course was complicated also with the pleural space infection. Based on the records forwarded to us from [facility], the patient had MSSA in the pleural fluid. 3 left upper lobe located pneumothorax/fluid-filled bolus. Noted the patient is post pleurodesis. There is an air-fluid level within the left upper lobe cavity which is probably representation of an underlyinginfection. Chest tube is in a good location. There is no evidence of any air leak. Maintaining continuous wall suction. There is purulent material draining in the Pleur-evac. 4 leukocytosis secondary to above, improving 5 secondary erythrocytosis related to pleural space infection 6 debility and weight loss with a body mass index of 16.2 7 history of chronic smoker. The patient quit smoking approximately 2 years ago. Plan The patient was seen and evaluated by Dr. Jiménez Plan is for transfer back to [facility] once a bed is available Continue current medications and antibiotics Continue chest tube to continuous wall suction I, the cosigning physician, performed a history & physical examination of the patient. Lungs sounds few scattered rhonchi more so on the left lung Maintaining good O2 saturations in the 90s on 2 L/m per nasal cannula. I discussed the assessment and plan of care with my nurse practitioner, Vida Villasenor. I attest to the above note as dictated by her.
--- NOTE | 2021-01-03 14:11 | PN ---
PROGRESS NOTE DATE OF SERVICE: 01/03/2021 REASON FOR FOLLOWUP: Left-sided empyema. INTERVAL HISTORY: The patient is afebrile. The patient is breathing slightly comfortably. The patient denies any worsening chest pain or cough. No abdominal pain or diarrhea. PHYSICAL EXAMINATION: Blood pressure 138/70 with a pulse of 93, temperature 97.4. He is 93% on 1 L nasal cannula. General description is a middle-aged male up in the bed in no distress. RESPIRATORY SYSTEM: Unlabored breathing. Decreased breath sounds at the bases. No wheeze. HEART: S1, S2. Regular rate and rhythm. ABDOMEN: Soft. No tenderness. LABS: White count is up to 18,000. Local culture showing Staph aureus. Sensitivities pending. Blood culture negative. DIAGNOSTIC IMPRESSION AND PLAN: Patient with left-sided empyema in this patient who is status post wedge resection and pleurodesis at [facility]. The patient is currently being transferred back there for further surgical intervention. The patient is covered with vancomycin and cefepime; to continue while waiting for the culture to finalize, and monitor his clinical course closely. MMODL / IJN: [id number] /
--- NOTE | 2021-01-03 17:13 | P.PN ---
Subjective Progress Note Date: 01/03/21 Venkata Winters, is a 60-year-old male who presented to [facility] emergency room with a chief complaint of chest discomfort and shortness of breath He was evaluated in the emergency room vital examination on presentation revealed a temperature of 97.9 pulse 96 respiration 18 blood pressure 100/53 pulse ox 98% on 4 L nasal cannula Laboratory data revealed a white blood count of 20.7 hemoglobin 10.3 platelet count 759 sodium 132 potassium 3.7 BUN 14 creatinine 0.4 CO2 43 coronavirus PCR was negative Testing in the emergency room revealed chest x-ray done in the emergency room revealed bullous pulmonary emphysema, left chest tube in good position, fluid level at the left lung apex with a cavity that measured approximately 7 cm, there was also new patchy infiltrates in the left lower lobe, and blunting of the costophrenic angle. Patient was admitted to medical floor for further evaluation and treatment Past medical history is significant for previous admission in October of this ye ar with spontaneous pneumothorax at that time a thoravent was placed. Patient also has a known history of COPD, benign prostatic hypertrophy, depression and prolonged history of tobacco use. On 01/01/2021 patient's alert and oriented 3. Patient remains with chest tube. Repeat chest x-ray completed showing chronic changes with left apical pleural cavity with dependent fluid and internal drainage catheter no new acute infiltrate and no significant change from one day earlier. Cardiothoracic, pulmonary and infectious disease services are following. Patient remains on cefepime and vancomycin. Patient reports slight improvement. Patient denies chest pain. Patient denies nausea vomiting or diarrhea. Patient denies any urinary burning or frequency On 01/02/2021 patient is alert and oriented 3. Patient remains on IV antibiotics and chest tube to suction. Cardiothoracic pulmonary and infectious disease services are following. Patient is still complaining of right wrist discomfort. X-ray was completing showing no new acute fracture dislocation to right wrist. Will order uric acid level. Patient denies any chest pain. Patient denies nausea vomiting or diarrhea. Patient denies any urinary burning or frequency On 01/03/2021 Patient was seen and examined on the medical floor, he is alert and oriented x 3 in no distress, he denies any complaints there is no fever or chills no headache or dizziness no chest pain no shortness of breath no palpitation no cough no nausea or vomiting no abdominal pain no diarrhea no blood in the stools no burning with urination no frequency or urgency and no hematuria, there is no weakness or numbness in any of the extremities no change in vision speech or gait. At this time awaiting transferring patient to [facility] when bed is available. Objective - Vital Signs Vital signs: Vital Signs Temp 97.4 F L 01/03/21 07:52 Pulse 93 01/03/21 07:52 Resp 18 01/03/21 07:52 BP 138/70 01/03/21 07:52 Pulse Ox 93 L 01/03/21 07:52 Intake & Output 01/02/21 01/03/21 01/03/21 18:59 06:59 18:59 Output Total 80 450 Balance -80 -450 Output: Chest Tube Drainage 80 30 Left Lateral Chest 80 30 Urine 420 Other: # Voids 1 2 # Bowel Movements 1 0 - Exam In general patient is alert and oriented x 3 in no distress HEENT head normocephalic and atraumatic Neck is supple no JVD no goiter no lymphadenopathy no carotid bruit Chest examination is clear to auscultation no crackles no wheezing Cardiac exam reveals regular heart sounds S1 and S2 no gallops no murmurs Abdomen is soft nontender no organomegaly with normal bowel sounds Extremity exam reveals no edema no cyanosis or clubbing Neurological examination reveals no gross focal deficits - Labs CBC & Chem 7: 01/03/21 06:03 01/03/21 06:03 Labs: Abnormal Lab Results - Last 24 Hours (Table) 01/03/21 01/03/21 Range/Units 06:03 06:03 WBC 18.12 H (4.50-10.00) X 10*3/uL RBC 3.40 L (4.40-5.60) X 10*6/uL Hgb 9.4 L (13.0-17.0) g/dL Hct 29.7 L (39.6-50.0) % MCHC 31.6 L (32.0-37.0) g/dL RDW 14.8 H (11.5-14.5) % Plt Count 934 H (140-440) X 10*3/uL Immature Gran # 0.18 H (0.00-0.04) X 10*3/uL Neutrophils # 13.71 H (1.80-7.70) X 10*3/uL Monocytes # 1.80 H (0.20-1.00) X 10*3/uL Eosinophils # 0.78 H (0.04-0.35) X 10*3/uL Sodium 135 L (137-145) mmol/L Chloride 95 L (98-107) mmol/L Carbon Dioxide 37 H (22-30) mmol/L BUN 5 L (9-20) mg/dL Creatinine 0.37 L (0.66-1.25) mg/dL Calcium 8.3 L (8.4-10.2) mg/dL Total Protein 5.7 L (6.3-8.2) g/dL Albumin 2.6 L (3.5-5.0) g/dL Microbiology - Last 24 Hours (Table) 12/31/20 13:50 Gram Stain - Final Pleural Fluid Body Fluid Culture - Final Staphylococcus aureus 12/30/20 20:28 Blood Culture - Preliminary Blood No Growth after 72 hours 12/30/20 20:28 Blood Culture - Preliminary Blood No Growth after 72 hours Assessment and Plan Plan: Left sided pneumothorax, with to chest tube placement over the last 2 months, and pleurodesis at [facility] Severe bullous emphysema Acute hypercapnic respiratory failure Leukocytosis, cannot rule out empyema and sepsis, blood culture pending, patient is maintained on IV antibiotics, Zosyn and vancomycin infectious disease consultation requested Underlying history of bullos emphysema with a previous history of spontaneous pneumothorax Underlying history of COPD Cachexia with severe weight loss Underlying history of benign prostatic hypertrophy Underlying history continued tobacco use, patient counseled in length in regards to smoking cessation Pulmonary, infectious disease and cardiothoracic team following Maintained on IV antibiotics Uric acid level ordered Chest tube in place and draining Will follow closely Prognosis is guarded
[2021-01-03 19:37] VITALS: BP 127/70; PULSE 109; RESP 16; TEMP 98.1
--- NOTE | 2021-01-03 22:50 | XR ---
EXAMINATION TYPE: XR chest 2V DATE OF EXAM: 01/03/2021 COMPARISON: Yesterday HISTORY: Empyema TECHNIQUE: 3 views FINDINGS: There is left-sided chest tube over the left lung apex. There is some volume loss and patch y infiltrate in the left lung. There is some pleural thickening at the lung bases and also left lung apex. Right lung shows some fibrotic changes in the right upper lobe. There is no heart failure. Hear t size is normal. IMPRESSION: Pulmonary scarring and volume loss and infiltrate in the left lung not changed compared t o yesterday. No evidence of any significant pneumothorax. Emphysema.
== END 2021-01-03 23:12 | disposition short-term general hospital (02) | DRG 871 ==
LOC: EC 17:18 → 4SSUR 20:12
PROVIDERS: ADMIT Internal Medicine; ATTEND Internal Medicine
PROC: 05HC33Z Insertion of Infusion Device into Left Basilic Vein, Percutaneous Approach (ICD-10-PCS; principal; 2021-01-02 09:00)
DX: A41.9 Sepsis, unspecified organism (principal); J96.02 Acute respiratory failure with hypercapnia; J86.9 Pyothorax without fistula; E43 Unspecified severe protein-calorie malnutrition; J93.83 Other pneumothorax; Z68.1 Body mass index [BMI] 19.9 or less, adult; J90 Pleural effusion, not elsewhere classified; J93.82 Other air leak; J98.11 Atelectasis; M25.531 Pain in right wrist; J43.9 Emphysema, unspecified; F17.210 Nicotine dependence, cigarettes, uncomplicated; D75.1 Secondary polycythemia; N40.0 Benign prostatic hyperplasia without lower urinary tract symptoms; Z20.822 Contact with and (suspected) exposure to COVID-19; Z79.82 Long term (current) use of aspirin
CPT/HCPCS: 36410; 36415; 71045; 71046; 71260; 76937; 80053; 80202; 83605; 84484; 84550; 85025; 85610; 85730; 87040; 87070; 87077; 87186; 87205; 87635; 93005; 96374; 99291